=== PATIENT | male | born 1955 | race Caucasian/White ===

== ENCOUNTER 2018-10-12 05:56 | Inpatient (IN) | payer OTHER ==
[~2018-10-12] VITALS: Ht 182.9 cm; Wt 129.7 kg
--- NOTE | 2018-10-12 06:05 | NUR ---
PT [id number] WITH C/O GLF X1 DAY AGO. PT STATES HE "DOESNT KNOW HOW IT HAPPENED". PT IS A/OX4. BREATHING EVEN AND UNLABORED. +COUGH. PLACED ON VP CLINICAL RESEARCH AND PULSE OX. +BOWEL INCONTINENCE. PENDING EVAL FROM ER .
[2018-10-12] MEDS ORDERED: IV NS 0.9% 500 ML BAG IV ONE (06:30)
--- NOTE | 2018-10-12 06:31 | NUR ---
ER AT BEDSIDE FOR EVAL
[2018-10-12 06:32] LABS: BASOPHILS # (AUTO) 0.1 /CMM (0.0-0.2); BASOPHILS % (AUTO) 0.6 % (0.0-2.0); EOSINOPHILS % (AUTO) 0.1 % (0.0-6.0); HEMATOCRIT 35 % (39-51); HEMOGLOBIN 11.6 g/dL (13.5-17.5); LYMPHOCYTES # (AUTO) 0.7 /CMM (0.8-4.8); MEAN CORPUSCULAR HGB CONC 33 g/dl (31.0-36.0); MEAN CORPUSCULAR VOLUME 89 fL (80-96); MONOCYTES # (AUTO) 1.1 /CMM (0.1-1.30); MONOCYTES % (AUTO) 6.4 % (2.0-12.0); NEUTROPHILS # (AUTO) 15.5 /CMM (1.8-8.9); NEUTROPHILS % (AUTO) 88.9 % (43.0-81.0); PLATELET COUNT (AUTO) 307 /CMM (150-450); WHITE BLOOD COUNT (AUTO) 17.4 K/uL (4.3-11.0)
[2018-10-12 06:39] LABS: CALCIUM, SERUM 8.2 mg/dL (8.5-10.1); CREATININE 2.2 mg/dL (0.6-1.3); POTASSIUM 4.7 mmol/L (3.5-5.1)
--- NOTE | 2018-10-12 06:42 | NUR ---
XRAY AT BEDSIDE
[2018-10-12 06:45] LABS: ALBUMIN 1.7 g/dL (3.4-5.0); BILIRUBIN,DIRECT 1.6 mg/dL (0.0-0.2); BILIRUBIN,TOTAL 2.1 mg/dL (0.2-1.0)
--- NOTE | 2018-10-12 07:14 | NUR ---
REPORT GIVEN TO MAHNAZ JARAMILLO FOR CATRACHITA.
[2018-10-12] MEDS ORDERED: ONDANSETRON HCL/PF - ER 4 MG/2 ML VIAL IV ONE (07:30)
[2018-10-12] MEDS ORDERED: ONDANSETRON HCL/PF 4 MG/2 ML VIAL ONE (07:37)
[2018-10-12] MEDS ORDERED: METO-356 PO (07:55)
[2018-10-12] MEDS ORDERED: INSU100I26 SQ (07:55)
[2018-10-12] MEDS ORDERED: INSU100I34 SQ (07:55)
[2018-10-12] MEDS ORDERED: BUME1TAB8 PO (07:55)
[2018-10-12] MEDS ORDERED: BUPR-51 PO (07:55)
[2018-10-12] MEDS ORDERED: VANCOMYCIN 1 GM in IV D5W 250 ML IV ONE (08:00)
[2018-10-12] MEDS ORDERED: CEFTRIAXONE 1GM BAG (ER ONLY) 1 GM/50 ML PIGGYBACK IV ONE (08:00)
[2018-10-12 08:59] LABS: APPEARANCE,URINE Slightly Cloudy (CLEAR); BILIRUBIN,URINE MODERATE (NEGATIVE); BLOOD, URINE Moderate Ery/uL (NEGATIVE); COLOR,URINE Amber (YELLOW); KETONES,URINE Trace (NEGATIVE); LEUKOCYTE ESTERASE ,URINE Negative (NEGATIVE); NITRITE, URINE Negative (NEGATIVE); PROTEIN,URINE >=300 mg/dl (NEGATIVE); UGLUCOSE Negative (NEGATIVE)
[2018-10-12] MEDS: BUPROPION XL 150 MG TAB.ER.24 PO SCH (09:00)
[2018-10-12] MEDS ORDERED: BUMETANIDE (1 MG) 1 MG TABLET PO SCH (09:00)
[2018-10-12 09:39] LABS: BACTERIA,URINE Few /HPF (None Seen); SQUAMOUS EPITHELIAL CELL,UR Few /HPF (None Seen); WBC,URINE 0-2 /HPF (0-3)
[2018-10-12 09:48] LABS: THYROID STIMULATING HORMONE 1.979 uIU/mL (0.358-3.74)
--- NOTE | 2018-10-12 10:41 | NUR ---
report given to kate brady pt will be tranposrted to 3rd floor via acls protocol
[2018-10-12] MEDS ORDERED: FEE PK DOSING 1 MIN EA MC ONE (10:56)
[2018-10-12 11:00] VITALS: BP 125/81
--- NOTE | 2018-10-12 11:00 | NUR ---
MS AWARD MACHINE OPERATOR NOTE PATIENT ARRIVED BY PHU FROM ER. PATIENT IN NO ACUTE DISTRESS. NO SOB NOTED. PATIENT ALERT AND ORIENTEDX3. PATIENT BREATHING IS EVEN AND UNLABORED. PATIENT VITAL SIGNS WNL. PATIENT VERBALIZES CONCERNS. CONCERNS WERE ADDRESSED. PATIENT ON CARDIAC MONITORING, SR 87. SAFETY PRECAUTIONS IN PLACE. BED IS LOCKED AND IN LOWEST POSITION. CALL LIGHT WITHIN REACH. WILL CONTINUE TO MONITOR. MD MADE AWARE OF PATIENT ARRIVAL.
[2018-10-12 11:30] VITALS: BP 125/81
[2018-10-12] MEDS ORDERED: MAGNESIUM HYDROXIDE 30 ML UDC PO PRN (11:30)
[2018-10-12] MEDS ORDERED: ZOLPIDEM TARTRATE 5 MG TABLET PO PRN (11:30)
[2018-10-12] MEDS ORDERED: ONDANSETRON HCL/PF 4 MG/2 ML VIAL IVP PRN (11:30)
[2018-10-12] MEDS ORDERED: MAG HYDROX/AL HYDROX/SIMETH 30 ML UDC PO PRN (11:30)
[2018-10-12] MEDS ORDERED: Z GUARD REMEDY 2 OZ OINT TP PRN (11:30)
[2018-10-12] MEDS ORDERED: HYDROCODONE/APAP 5/325MG 1 EACH TABLET PO PRN (11:30)
[2018-10-12] MEDS ORDERED: ACETAMINOPHEN 325 MG TABLET PO PRN (11:30)
[2018-10-12] MEDS: IV NS 0.9% 1,000 ML IV PRN (11:51)
[2018-10-12] MEDS: METOPROLOL SUCCINATE 25 MG TAB.SR.24H PO SCH (11:53)
[2018-10-12] MEDS: CEFTRIAXONE 1 G in IV D5W 50 ML IV SCH (13:34)
[2018-10-12 16:00] VITALS: BP 110/70
[2018-10-12 17:00] VITALS: BP 129/79
[2018-10-12] MEDS ORDERED: DEXTROSE 50%-WATER 50 ML DISP.SYRIN IV PRN (17:30)
[2018-10-12] MEDS ORDERED: BLOOD SUGAR DIAGNOSTIC 1 EACH STRIP VI SCH (17:30)
[2018-10-12] MEDS: BLOOD SUGAR DIAGNOSTIC 1 EACH STRIP IN SCH ×2 (17:40→21:17)
[2018-10-12] MEDS: INSULIN REGULAR, HUMAN 100 UNIT/ML 3 ML VIAL SQ PRN (17:43)
--- NOTE | 2018-10-12 19:24 | NUR ---
MS RN CLOSING NOTE PATIENT RESTING IN BED COMFORTABLY. PATIENT IN NO ACUTE DISTRESS. NO SOB NOTED. PATIENT KEPT CLEAN, DRY, AND COMFORTABLE. PATIENT BREATHING IS EVEN AND UNLABORED. PATIENT VERBALIZES CONCERNS. CONCERNS ADDRESSED. PATIENT IN NO PAIN AT THIS TIME. PATIENT BED IS LOCKED AND IN LOWEST POSITION. CALL LIGHT WITHIN REACH. ALL NURSING NEEDS MET. ENDORSED CARE TO PM SHIFT FOR CATRACHITA.
--- NOTE | 2018-10-12 19:30 | NUR ---
RN NOTES RECEIVED PT. AWAKE ON BED, A/OX3 WITH CONFUSION, SR WITH BBB ON TELE MONITOR HR-77, DENIES PAIN, NO SOB, CALL LIGHT WITHIN REACH, [id number], CONTINUE TO MONITOR
[2018-10-12 20:00] VITALS: BP 128/89
[2018-10-12] MEDS: *INSULIN REGULAR(HUMULIN R)HUM 100 UNIT/ML VIAL SQ PRN (21:27)
[2018-10-12] MEDS: INSULIN GLARGINE, 100 UNIT/ML CARTRIDGE SQ SCH (22:00)
--- NOTE | 2018-10-12 22:00 | NUR ---
RN NOTES PT. REFUSED HIS LANTUS HE STATED " HIS BLOOD SUGAR IS ONLY 171"
[2018-10-13] VITALS: BP 110/60
--- NOTE | 2018-10-13 02:30 | NUR ---
RN NOTES pt. pulled out his iv access, new iv line inserted on the left forearm # 22
[2018-10-13] MEDS: VANCOMYCIN 1 GM in IV D5W 250 ML IV SCH ×2 (03:06→21:58)
[2018-10-13] MEDS: IV NS 0.9% 1,000 ML IV PRN (03:07)
[2018-10-13 04:00] VITALS: BP 132/60
[2018-10-13 06:23] LABS: BASOPHILS # (AUTO) 0.1 /CMM (0.0-0.2); BASOPHILS % (AUTO) 0.8 % (0.0-2.0); EOSINOPHILS % (AUTO) 1.5 % (0.0-6.0); HEMATOCRIT 36 % (39-51); HEMOGLOBIN 12.1 g/dL (13.5-17.5); LYMPHOCYTES % (AUTO) 5.9 % (20.0-44.0); MEAN CORPUSCULAR HGB CONC 33 g/dl (31.0-36.0); MEAN CORPUSCULAR VOLUME 90 fL (80-96); MONOCYTES % (AUTO) 5.7 % (2.0-12.0); NEUTROPHILS # (AUTO) 14.4 /CMM (1.8-8.9); NEUTROPHILS % (AUTO) 86.1 % (43.0-81.0); PLATELET COUNT (AUTO) 277 /CMM (150-450); RED BLOOD CELL COUNT(AUTO) 4.07 MIL/uL (4.5-6.0); WHITE BLOOD COUNT (AUTO) 16.8 K/uL (4.3-11.0)
[2018-10-13 06:35] LABS: ALBUMIN 1.5 g/dL (3.4-5.0); BILIRUBIN,TOTAL 1.3 mg/dL (0.2-1.0); CALCIUM, SERUM 8.1 mg/dL (8.5-10.1); MAGNESIUM 2.1 mg/dL (1.8-2.4); PHOSPHORUS 4.2 mg/dL (2.5-4.9); POTASSIUM 5.2 mmol/L (3.5-5.1)
--- NOTE | 2018-10-13 06:35 | NUR ---
RN NOTES AWAKE, SITTING IN THE CHAIR, DENIES PAIN, NO SOB,. MORNING CARE RENDERED, CALL LIGHT WITHIN REACH, MALLORYUPX2, PT. NEEDS ATTENDED
[2018-10-13] MEDS: INSULIN REGULAR, HUMAN 100 UNIT/ML 3 ML VIAL SQ PRN ×4 (06:59→21:38)
[2018-10-13] MEDS: BLOOD SUGAR DIAGNOSTIC 1 EACH STRIP IN SCH ×4 (07:00→21:27)
--- NOTE | 2018-10-13 07:45 | NUR ---
MS RN OPENING NOTE PATIENT IN CHAIR RESTING COMFORTABLY. PATIENT STATED HE PREFERS TO SIT IN CHAIR PREPARING FOR BREAKFAST. PATIENT BREATHING IS EVEN AND UNLABORED. PATIENT IN NO ACUTE DISTRESS. NO SOB NOTED. PATIENT VERBALIZES CONCERNS. CONCERNS ADDRESSED. SAFETY PRECAUTIONS IN PLACE. PATIENT BED IS LOCKED AND IN LOWEST POSITION. CALL LIGHT WITHIN REACH. WILL CONTINUE TO MONITOR.
[2018-10-13 08:00] VITALS: BP 109/68
[2018-10-13] MEDS: BUPROPION XL 150 MG TAB.ER.24 PO SCH (09:00)
[2018-10-13] MEDS: METOPROLOL SUCCINATE 25 MG TAB.SR.24H PO SCH (09:00)
[2018-10-13] MEDS: FUROSEMIDE 40 MG/4 ML VIAL IV SCH ×2 (09:12→12:23)
[2018-10-13] MEDS: CEFTRIAXONE 1 G in IV D5W 50 ML IV SCH (12:21)
[2018-10-13 16:00] VITALS: BP 109/63
--- NOTE | 2018-10-13 18:43 | NUR ---
MS RN CLOSING NOTE PATIENT IN CHAIR RESTING COMFORTABLY. PATIENT PREFERS TO SIT IN CHAIR STATED BY PATIENT. PATIENT BREATHING IS EVEN AND UNLABORED. PATIENT IN NO ACUTE DISTRESS. NO SOB NOTED. PATIENT STATES NO PAIN AT THIS TIME. PATIENT KEPT CLEAN AND DRY THROUGHOUT SHIFT. PATIENT VERBALIZED CONCERNS. CONCERNS AND NEEDS ADDRESSED. ALL NURSING NEEDS MET. SAFETY PRECAUTIONS IN PLACE. PATIENT BED IS LOCKED AND IN LOWEST POSITION. CALL LIGHT WITHIN REACH. WILL ENDORSE CARE TO PM SHIFT FOR CATRACHITA.
--- NOTE | 2018-10-13 19:48 | NUR ---
MS/RN OPENING NOTES RECEIVED PATIENT IN BED, AWAKE, ALERT X3, ABLE TO VERBALIZE NEEDS, REQUIRE ASSISTANCE IN TRANSFERED FROM CHAIR TO BED, RESPIRATIONS EVEN AND UNLABORED, DENIED PAIN. REPORTED WANT TO TAKE A SHOWER, OFFERED SPONGE BATH BUT WILL INFORM MD FOR ORDER FOR SAFETY . HEP LOCK LEFT WRIST 22.SKIN ISSUES OBSERVED WITH BACK SACRAL REDNESS AND BLE CELLULITIS. BED LOCKED, CALL LIGHTS WITHIN REACH, WILL MONITOR.
[2018-10-13 20:00] VITALS: BP 107/74
[2018-10-13 20:21] VITALS: BP 107/74
[2018-10-13] MEDS: INSULIN GLARGINE, 100 UNIT/ML CARTRIDGE SQ SCH (21:41)
--- NOTE | 2018-10-13 21:48 | NUR ---
MS/RN NOTES BLOOD SUGAR CHECK AT 200, PATIENT ALERT, ORIENTED PATIENT REQUESTED TO HAVE LANTUS BE GIVEN OF 12 UNITS HE EXPERIENCE DROP IN BLOOD SUGAR LEVEL DURING THE NIGH BUT PATIENT HAD 3 UNIT INSULIN REGULAR PER SLIDING SCALE.
--- NOTE | 2018-10-14 03:25 | NUR ---
MS/RN NOTES PATIENT REPORTED THAT HE USES CPAP AT HIS HOME AND REFUSES OXYGEN NASALCANULA WITH OXYGENATION AT ROOM AIR OF 94%. WILL FOLLOW UP IN AM.
[2018-10-14] MEDS: BLOOD SUGAR DIAGNOSTIC 1 EACH STRIP IN SCH ×4 (06:02→22:47)
[2018-10-14] MEDS: INSULIN REGULAR, HUMAN 100 UNIT/ML 3 ML VIAL SQ PRN ×3 (06:27→17:13)
--- NOTE | 2018-10-14 06:38 | NUR ---
325-1 MS/RN NOTES PATIENT ABLE TO SLEEP DURING THE NIGHT, RESPIRATIONS EVEN AND UNLABORED. DENIES PAIN,MONITORED FOR SAFETY. IV RUNING WITH NO S/S OF INFILTRARION, BED LOCKED, CALL LIGHTS WITIN REACH, WILL MONITOR, PROVIDED FLUIDS AND OFFERED SNACKS. WILL ENDORSE TO AM RN FOR CATRACHITA.
[2018-10-14 07:18] LABS: BASOPHILS # (AUTO) 0.1 /CMM (0.0-0.2); BASOPHILS % (AUTO) 0.6 % (0.0-2.0); EOSINOPHILS % (AUTO) 2.9 % (0.0-6.0); HEMATOCRIT 36 % (39-51); HEMOGLOBIN 11.6 g/dL (13.5-17.5); LYMPHOCYTES # (AUTO) 0.7 /CMM (0.8-4.8); LYMPHOCYTES % (AUTO) 5.1 % (20.0-44.0); MEAN CORPUSCULAR HGB CONC 33 g/dl (31.0-36.0); MEAN CORPUSCULAR VOLUME 90 fL (80-96); MONOCYTES # (AUTO) 0.9 /CMM (0.1-1.30); NEUTROPHILS # (AUTO) 12.5 /CMM (1.8-8.9); NEUTROPHILS % (AUTO) 85.4 % (43.0-81.0); PLATELET COUNT (AUTO) 297 /CMM (150-450); RED BLOOD CELL COUNT(AUTO) 3.97 MIL/uL (4.5-6.0); WHITE BLOOD COUNT (AUTO) 14.6 K/uL (4.3-11.0)
[2018-10-14 07:39] LABS: ALBUMIN 1.5 g/dL (3.4-5.0); BILIRUBIN,TOTAL 1.1 mg/dL (0.2-1.0); CREATININE 1.9 mg/dL (0.6-1.3); PHOSPHORUS 4.3 mg/dL (2.5-4.9); TOTAL PROTEIN, SERUM 7.6 g/dL (6.4-8.2)
--- NOTE | 2018-10-14 07:42 | NUR ---
MS RN OPENING NOTE RECEIVED PATIENT RESTING IN BED COMFORTABLY. PATIENT IN NO ACUTE DISTRESS. NO SOB NOTED. PATIENT ABLE TO VERBALIZE CONCERNS. CONCERNS AND NEEDS ADDRESSED. PATIENT BREATHING IS EVEN AND UNLABORED. SAFETY PRECAUTIONS IN PLACE. PATIENT BED IS LOCKED AND IN LOWEST POSITION. CALL LIGHT WITHIN REACH. WILL CONTINUE TO MONITOR.
[2018-10-14 08:00] VITALS: BP 131/86
[2018-10-14] MEDS: BUPROPION XL 150 MG TAB.ER.24 PO SCH (08:49)
[2018-10-14] MEDS: METOPROLOL SUCCINATE 25 MG TAB.SR.24H PO SCH (08:49)
[2018-10-14] MEDS: CEFTRIAXONE 1 G in IV D5W 50 ML IV SCH (11:18)
[2018-10-14 13:06] LABS: *SPE A/G RATIO 0.4 (0.7-1.7); *SPE ALPHA-1-GLOBULIN 0.5 g/dL (0.0-0.4); *SPE GLOBULIN, TOTAL 5.4 g/dL (2.2-3.9); *SPE M-SPIKE Not Observed g/dL (Not Observed)
--- NOTE | 2018-10-14 15:20 | NUR ---
MS RN NOTE RECEIVED CALL FROM MICROBIOLOGY REPORTING POSITIVE MRSA OF THE NARES. PATIENT MAINTAINED CONTACT ISOLATION PRECAUTIONS. MADE AWARE. AWAITING CENTRAL SUPPLY FOR ISOLATION CART. WILL CONTINUE TO MONITOR.
[2018-10-14] MEDS: VANCOMYCIN 1 GM in IV D5W 250 ML IV SCH (15:59)
[2018-10-14 16:00] VITALS: BP 111/71
[2018-10-14] MEDS: MUPIROCIN OINT 2% 22 GM TUBE TP SCH (17:10)
--- NOTE | 2018-10-14 19:39 | NUR ---
MS RN CLOSING NOTE PATIENT IN BED RESTING COMFORTABLY. PATIENT IN NO PAIN AT THIS TIME. PATIENT IN NO ACUTE DISTRESS. NO SOB NOTED. PATIENT BREATHING IS EVEN AND UNLABORED. PATIENT KEPT CLEAN AND DRY THROUGHOUT SHIFT. SOLES OF FEET COVERED WITH MEPILEX. ALL NURSING NEEDS MET. SAFETY PRECAUTIONS IN PLACE. PATIENT BED IS LOCKED AND IN LOWEST POSITION. CALL LIGHT WITHIN REACH. ENDORSED CARE TO PM SHIFT FOR CATRACHITA.
--- NOTE | 2018-10-14 19:40 | NUR ---
MS RN OPENING NOTES Received patient, sitting on bed. On RA, no SOB/respiratory distress noted. No discomfort noted at this time. Kept on bed clean, dry and comfortable. Call light within easy reach. Will continue to monitor accordingly.
[2018-10-14 20:00] VITALS: BP 99/65
[2018-10-14] MEDS: INSULIN GLARGINE, 100 UNIT/ML CARTRIDGE SQ SCH (22:46)
[2018-10-14] MEDS: *INSULIN REGULAR(HUMULIN R)HUM 100 UNIT/ML VIAL SQ PRN (22:48)
[2018-10-15] MEDS: MUPIROCIN OINT 2% 22 GM TUBE TP SCH ×2 (04:07→16:35)
--- NOTE | 2018-10-15 06:41 | NUR ---
MS RN CLOSING NOTES Patient asleep at this time. On RA, no SOB/respiratory distress noted. With sitter at bedside. All nursing needs attended. All due meds given as ordered. No new unsualities noted. Afebrile the whole shift. Endorsed to the next shift.
[2018-10-15] MEDS: INSULIN REGULAR, HUMAN 100 UNIT/ML 3 ML VIAL SQ PRN ×3 (06:44→17:04)
[2018-10-15] MEDS: BLOOD SUGAR DIAGNOSTIC 1 EACH STRIP IN SCH ×3 (06:45→17:37)
--- NOTE | 2018-10-15 07:30 | NUR ---
RN MS NOTES PT IN BED, AWAKE, ALERT AND ORIENTED, DENIES PAIN, RESPIRATIONS NORMAL, CALL LIGHT WITHIN REACH, PT REFUSING TO TAKE WELLBUTRIN AT THIS TIME, NEEDS ATTENDED.
[2018-10-15 08:00] VITALS: BP 107/50
[2018-10-15] MEDS: BUPROPION XL 150 MG TAB.ER.24 PO SCH (08:30)
[2018-10-15] MEDS: METOPROLOL SUCCINATE 25 MG TAB.SR.24H PO SCH (08:30)
[2018-10-15 08:56] LABS: BASOPHILS # (AUTO) 0.1 /CMM (0.0-0.2); BASOPHILS % (AUTO) 1.2 % (0.0-2.0); EOSINOPHILS % (AUTO) 3.9 % (0.0-6.0); HEMATOCRIT 37 % (39-51); HEMOGLOBIN 12.3 g/dL (13.5-17.5); LYMPHOCYTES % (AUTO) 7.7 % (20.0-44.0); MEAN CORPUSCULAR HGB CONC 33 g/dl (31.0-36.0); MEAN CORPUSCULAR VOLUME 89 fL (80-96); MONOCYTES # (AUTO) 0.9 /CMM (0.1-1.30); MONOCYTES % (AUTO) 7.3 % (2.0-12.0); NEUTROPHILS % (AUTO) 79.9 % (43.0-81.0); PLATELET COUNT (AUTO) 296 /CMM (150-450); RED BLOOD CELL COUNT(AUTO) 4.17 MIL/uL (4.5-6.0); WHITE BLOOD COUNT (AUTO) 12.5 K/uL (4.3-11.0)
[2018-10-15] MEDS: VANCOMYCIN 1 GM in IV D5W 250 ML IV SCH (09:00)
[2018-10-15 09:42] LABS: CALCIUM, SERUM 8.4 mg/dL (8.5-10.1); POTASSIUM 4.3 mmol/L (3.5-5.1)
[2018-10-15 09:43] LABS: CREATININE 1.8 mg/dL (0.6-1.3); MAGNESIUM 2.2 mg/dL (1.8-2.4); PHOSPHORUS 4.5 mg/dL (2.5-4.9)
[2018-10-15] MEDS ORDERED: CLIN300C11 IV (10:47)
[2018-10-15] MEDS ORDERED: CLINDAMYCIN IV RTU IN D5W 900 MG/50 ML PIGGYBACK IV SCH (11:00)
--- NOTE | 2018-10-15 11:54 | NUR ---
RN MS NOTES PT AWAKE, ALERT AND ORIENTED, DENIES PAIN, NOT IN DISTRESS, SEEN BY DR. SIERRA, DISCHARGE ORDER GIVEN, PT AND BROTHER HEMALATHA INFORMED, TEXTILE BROKER MAHNAZ SPOKE WITH PT AND FAMILY, VERBALIZED UNDERSTANDING, AWAITING PLACEMENT ARRANGEMENTS.
[2018-10-15] MEDS: CLINDAMYCIN 900 MG in IV D5W 50 ML IV SCH ×2 (12:54→20:32)
--- NOTE | 2018-10-15 15:47 | NUR ---
RN MS NOTES CLARIFIED DISCHARGE ATB ORDERS FROM DR. SIERRA, PER MD CONTINUE CLYNDAMYCIN IV X 10 DAYS ORDERED THEN TRANSITION TO PO ATB PER SNF MD.
[2018-10-15 16:00] VITALS: BP 102/70
--- NOTE | 2018-10-15 18:51 | NUR ---
RN MS NOTES PT IN BED, AWAKE, ALERT AND ORIENTED, MIDLINE PLACED BY JITENDRA JARAMILLO AT RIGHT UPPER ARM, PT TOLERATED PROCEDURE WELL, DISCHARGE AND MEDICATION INSTRUCTIONS PROVIDED TO PT, VERBALIZED UNDERSTANDING, SKIN CHECK AND PHOTOS DONE, PLAN FOR DISCHARGE TONIGHT, MACHINE FILLER SERVICER TIME OF 9PM PER INSTALLER HELPER GORDON JOYA INFORMED.
--- NOTE | 2018-10-15 19:00 | NUR ---
MS RN OPENING NOTES Received patient A/O x3, awake on sidelying position on bed. On RA, no SOB/respiratory distress noted. Patient denies any discomfort at this time. Re-educate patient on discharge instructions, patient verbalized understanding. Gave report to receiving SNF Chris Alvarado, spoke with RN Usha, reiterate patient's ATB to be changed to PO after 10 days per SNF MD. Awaiting for transportation at this time, ETA 2100. Kept patient on bed clean, dry and comfortable. Call light within easy reach. On fall precautions. Will continue to monitor accordingly.
[2018-10-15 20:04] VITALS: BP 103/70
--- NOTE | 2018-10-15 20:55 | NUR ---
MS MANUFACTURING SALES REPRESENTATIVE NOTES Patient picked up by 2 data processing operator via kalin. Patient in RA, no SOB/respiratory distress, no complaints of pain. With BRADEN Midline G#[id number], SL. Discharge papers endorsed to EMT. Brother Sanjay and [facility] notified of patient's departure. Patient left at this time.
== END 2018-10-15 20:55 | DRG 351 ==
LOC: ER 06:04 → TELE 10:39 → MED 10-13 08:39
PROVIDERS: ADMIT Internal Medicine; ATTEND Family Medicine
PROC: 05HB33Z Insertion of Infusion Device into Right Basilic Vein, Percutaneous Approach (ICD-10-PCS; principal; 2018-10-15)
DX: M62.82 Rhabdomyolysis (principal); I21.4 Non-ST elevation (NSTEMI) myocardial infarction; N17.0 Acute kidney failure with tubular necrosis; I13.0 Hypertensive heart and chronic kidney disease with heart failure and stage 1 through stage 4 chronic kidney disease, or unspecified chronic kidney disease; I95.9 Hypotension, unspecified; E11.22 Type 2 diabetes mellitus with diabetic chronic kidney disease; E11.51 Type 2 diabetes mellitus with diabetic peripheral angiopathy without gangrene; E87.1 Hypo-osmolality and hyponatremia; I50.32 Chronic diastolic (congestive) heart failure; Z79.4 Long term (current) use of insulin; L03.115 Cellulitis of right lower limb; L03.116 Cellulitis of left lower limb; N18.9 Chronic kidney disease, unspecified; Z79.899 Other long term (current) drug therapy; D63.8 Anemia in other chronic diseases classified elsewhere; I25.10 Atherosclerotic heart disease of native coronary artery without angina pectoris; M85.9 Disorder of bone density and structure, unspecified; J44.9 Chronic obstructive pulmonary disease, unspecified; K74.60 Unspecified cirrhosis of liver; R18.8 Other ascites; E87.5 Hyperkalemia; E78.5 Hyperlipidemia, unspecified; Z91.81 History of falling; I87.8 Other specified disorders of veins
CPT/HCPCS: 36415; 71045-TC; 72170-TC; 76700-TC; 80048-TC; 80053-TC; 80061-TC; 80074; 80076-TC; 80202-TC; 81000-TC; 82550-TC; 82570-TC; 82728-TC; 82962-TC; 83540-TC; 83605-TC; 83735-TC; 84100-TC; 84155; 84155-TC; 84165; 84439-TC; 84443-TC; 84484-TC; 85025-TC; 85652-TC; 85730-TC; 87040-TC; 87081-TC; 87086-TC; 87340; 93307-TC; 97110-TC; 97116-TC; 97530-TC; A6403; G0378; J0696; J1815; J1940; J2405; J3370; J3490; J7030; J7040; J7060

== ENCOUNTER 2018-12-23 18:12 | Inpatient (IN) | payer OTHER ==
[~2018-12-23] VITALS: Ht 182.9 cm; Wt 106.6 kg
[~2018-12-23 18:12] MED LIST: BUME1TAB8 PO; BUPR-51 PO; CLIN300C11 IV; INSU100I26 SQ; INSU100I34 SQ; METO25TA4 PO
--- NOTE | 2018-12-23 18:16 | NUR ---
"BIBPA AND BROTHER FROM SNF, C/O WEAKNESS x 3 WEEKS" PT ALERT, PT ON MONITOR, VSS, NAD NOTED, PENDING MD RAVI
[2018-12-23] MEDS ORDERED: DOCU-141 PO (18:42)
[2018-12-23] MEDS ORDERED: BISA10SU11 RC (18:42)
[2018-12-23] MEDS ORDERED: NA P133E RC (18:42)
[2018-12-23] MEDS ORDERED: MAGN400O6 PO (18:42)
[2018-12-23] MEDS ORDERED: MULT-439 PO (18:43)
[2018-12-23] MEDS ORDERED: HYDR-3974 PO (18:43)
[2018-12-23] MEDS ORDERED: TYL2T PO (18:43)
[2018-12-23] MEDS ORDERED: MELA3TAB63 PO (18:43)
[2018-12-23] MEDS ORDERED: METO25TA6 PO (18:43)
[2018-12-23] MEDS ORDERED: ASCO500T9 PO (18:44)
[2018-12-23] MEDS ORDERED: ACET-868 PO (18:44)
[2018-12-23 19:04] LABS: BASOPHILS # (AUTO) 0.1 /CMM (0.0-0.2); BASOPHILS % (AUTO) 0.7 % (0.0-2.0); EOSINOPHILS % (AUTO) 1.6 % (0.0-6.0); HEMATOCRIT 39 % (39-51); HEMOGLOBIN 12.8 g/dL (13.5-17.5); LYMPHOCYTES # (AUTO) 0.7 /CMM (0.8-4.8); LYMPHOCYTES % (AUTO) 4.9 % (20.0-44.0); MEAN CORPUSCULAR HGB CONC 33 g/dl (31.0-36.0); MEAN CORPUSCULAR VOLUME 90 fL (80-96); MONOCYTES # (AUTO) 0.7 /CMM (0.1-1.30); MONOCYTES % (AUTO) 5.3 % (2.0-12.0); NEUTROPHILS # (AUTO) 12.1 /CMM (1.8-8.9); NEUTROPHILS % (AUTO) 87.5 % (43.0-81.0); PLATELET COUNT (AUTO) 152 /CMM (150-450); RED BLOOD CELL COUNT(AUTO) 4.35 MIL/uL (4.5-6.0); WHITE BLOOD COUNT (AUTO) 13.8 K/uL (4.3-11.0)
[2018-12-23 19:30] LABS: MAGNESIUM 2.1 mg/dL (1.8-2.4)
[2018-12-23 19:33] LABS: CALCIUM, SERUM 8.6 mg/dL (8.5-10.1); POTASSIUM 4.1 mmol/L (3.5-5.1)
[2018-12-23 19:46] LABS: ALBUMIN 1.7 g/dL (3.4-5.0); BILIRUBIN,DIRECT 0.9 mg/dL (0.0-0.2); BILIRUBIN,TOTAL 1.2 mg/dL (0.2-1.0); TOTAL PROTEIN, SERUM 7.8 g/dL (6.4-8.2)
[2018-12-23] MEDS ORDERED: FUROSEMIDE 40 MG/4 ML VIAL IV ONE (20:30)
[2018-12-23] MEDS ORDERED: FUROSEMIDE 40 MG/4 ML VIAL ONE (20:35)
[2018-12-23] MEDS ORDERED: MAG HYDROX/AL HYDROX/SIMETH 30 ML UDC PO PRN (22:30)
[2018-12-23] MEDS ORDERED: BISACODYL SUPP (10 MG) 10 MG/SUPP.RECT SUPP.RECT RC PRN (22:30)
[2018-12-23] MEDS ORDERED: ONDANSETRON HCL/PF 4 MG/2 ML VIAL IVP PRN (22:30)
[2018-12-23] MEDS ORDERED: MAGNESIUM HYDROXIDE 30 ML UDC PO PRN (22:30)
[2018-12-23] MEDS ORDERED: Z GUARD REMEDY 2 OZ OINT TP PRN (22:30)
[2018-12-23] MEDS ORDERED: ACETAMINOPHEN 325 MG TABLET PO PRN (22:30)
[2018-12-23] MEDS ORDERED: Medication Not On Formulary EA (Melatonin 3 MG) PO PRN (22:30)
--- NOTE | 2018-12-23 22:32 | NUR ---
REPORT GIVEN TO REJI JARAMILLO FOR CATRACHITA PT WILL BE TRANSPORTED TO 1ST FLOOR
--- NOTE | 2018-12-23 22:40 | NUR ---
BRIM CURLERBILINGUAL CASE MANAGER NOTE: PT ADMITTED FROM ER VIA [facility] [place] WITH ADMITTING DIAGNOSIS OF CHF. PT IS ALERT AND ORIENTED TO HIMSELF ONLY. NO APPARENT DISTRESS NOTED. DENIES PAIN AND DISCOMFORT AT THIS TIME. ON 2LPM NASAL CANNULA, NO SOB NOTED AT THIS TIME. SINUS RHYTHM ON TELE MONITOR HR 80 BPM. IV ON LEFT HAND #22 INTACT AND PATENT, FLUSHING WELL. NO SIGNS/SYMPTOMS OF INFILTRATION NOTED. PERTINENT ASSESSMENTS DONE. MULTIPLE SKIN ISSUES NOTED. PICTURES TAKEN AND PLACED ON CHART. KEPT CLEAN, DRY AND COMFORTABLE. CALL LIGHT PLACED WITHIN REACH. SAFETY AND FALL PRECAUTIONS OBSERVED AND MAINTAINED. WILL CONTINUE TO MONITOR PT.
[2018-12-23 23:42] VITALS: BP 132/81
[2018-12-23] MEDS ORDERED: CEFTRIAXONE 1 G VIAL ONE (23:49)
[2018-12-23] MEDS ORDERED: VANCOMYCIN 1 GM VIAL ONE (23:50)
[2018-12-24] VITALS: BP 132/81
[2018-12-24] MEDS ORDERED: CEFTRIAXONE 1 G in IV D5W 50 ML IV SCH ×2
[2018-12-24] MEDS ORDERED: VANCOMYCIN 1 GM in IV D5W 250ml IV SCH (01:00)
[2018-12-24 01:12] LABS: APPEARANCE,URINE Clear (CLEAR); BILIRUBIN,URINE Negative (NEGATIVE); BLOOD, URINE Negative Ery/uL (NEGATIVE); COLOR,URINE Yellow (YELLOW); KETONES,URINE Negative (NEGATIVE); LEUKOCYTE ESTERASE ,URINE Trace (NEGATIVE); NITRITE, URINE Negative (NEGATIVE); PROTEIN,URINE 30 mg/dl (NEGATIVE); UGLUCOSE Negative (NEGATIVE); UROBILINOGEN,URINE 0.2 EU/dL (0.2)
[2018-12-24 01:45] LABS: BACTERIA,URINE Few /HPF (None Seen); RBC,URINE 0-2 /HPF (0-2); SQUAMOUS EPITHELIAL CELL,UR Rare /HPF (None Seen); YEAST,URINE Few /HPF (None Seen)
[2018-12-24 04:00] VITALS: BP 130/81
--- NOTE | 2018-12-24 06:37 | NUR ---
TRIAGE CLINICIAN NOTE: NO CHANGES NOTED THROUGHOUT THE SHIFT. NO APPARENT DISTRESS NOTED. DENIES PAIN AND DISCOMFORT AT THIS TIME. ON 2LPM NASAL CANNULA, NO SOB NOTED. SATURATING WELL. SINUS RHYTHM ON TELE MONITOR HR 81 BPM. IV ON RIGHT HAND #22 INTACT AND PATENT, FLUSHING WELL. KEPT CLEAN, DRY AND COMFORTABLE. SAFETY AND FALL PRECAUTIONS OBSERVED AND MAINTAINED. ALL NEEDS ATTENDED. WILL ENDORSE TO DAY SHIFT RN FOR CONTINUITY OF CARE.
[2018-12-24 07:25] LABS: ALBUMIN 1.8 g/dL (3.4-5.0); BILIRUBIN,DIRECT 0.8 mg/dL (0.0-0.2); BILIRUBIN,TOTAL 1.3 mg/dL (0.2-1.0); CALCIUM, SERUM 8.4 mg/dL (8.5-10.1); CREATININE 1.8 mg/dL (0.6-1.3); MAGNESIUM 1.9 mg/dL (1.8-2.4); PHOSPHORUS 3.5 mg/dL (2.5-4.9); POTASSIUM 3.9 mmol/L (3.5-5.1)
--- NOTE | 2018-12-24 07:30 | NUR ---
MINE FOREMAN OPENING NOTE RECEIVED REPORT AT BEDSIDE. PT A/OX2. ON NS 2L SATURATING WELL. ON TELE MONITOR SR HR 80'S. NO SIGN OF ACUTE RESPIRATORY/CARDIAC DISTRESS OR SOB AT THIS TIME. SAFETY MEASURES IN PLACE, BED LOCKED AND LOW, SIDE RAILS UPX3, CALL LIGHT WITHIN REACH. WILL CONT' TO MONITOR CLOSELY.
[2018-12-24 07:32] LABS: BASOPHILS % (AUTO) 0.4 % (0.0-2.0); EOSINOPHILS % (AUTO) 1.9 % (0.0-6.0); HEMATOCRIT 39 % (39-51); HEMOGLOBIN 12.9 g/dL (13.5-17.5); LYMPHOCYTES # (AUTO) 0.8 /CMM (0.8-4.8); LYMPHOCYTES % (AUTO) 6.1 % (20.0-44.0); MEAN CORPUSCULAR HGB CONC 33 g/dl (31.0-36.0); MEAN CORPUSCULAR VOLUME 89 fL (80-96); MONOCYTES # (AUTO) 0.6 /CMM (0.1-1.30); MONOCYTES % (AUTO) 5.1 % (2.0-12.0); NEUTROPHILS # (AUTO) 10.8 /CMM (1.8-8.9); NEUTROPHILS % (AUTO) 86.5 % (43.0-81.0); PLATELET COUNT (AUTO) 168 /CMM (150-450); WHITE BLOOD COUNT (AUTO) 12.5 K/uL (4.3-11.0)
[2018-12-24 08:00] VITALS: BP 123/72
[2018-12-24 08:05] LABS: THYROID STIMULATING HORMONE 4.844 uIU/mL (0.358-3.74)
--- NOTE | 2018-12-24 08:20 | NUR ---
WOUND CARE CONSULT: PT PRESENTS WITH RT HEEL WOUND WITH FOUL PURULENT DRAINAGE, MULTIPLE SCRATCH SAZN, DRY ESCHARS TO LOWER EXTREMITIES, SACRAL STAGE 3 ULCER, REDNESS TO ABDOMINAL/GROIN FOLDS AND GENERALIZED PITTING EDEMA, PRESENT ON ADMISSION. PT IS INCONTINENT. PT ON NORI ISOFLEX LOW AIRLOSS BED. RECOMMEND URGENT DPM CONSULT. DR MARTIN NOTIFIED OF URGENT NEED FOR DPM CONSULT AND FOR REQUEST FOR SURGICAL CONSULT FOR SACRAL ULCER. RECOMMENDATIONS MADE FOR SKIN PROTECTION. DISCUSSED WITH NURSING STAFF. WILL SEE PRN. GARSIA IN AGREEMENT WITH PLAN OF CARE. Addendum: 12/24/18 at 0826 by JULISA CORONA WNDNU Amended: Links added.
[2018-12-24] MEDS ORDERED: Medication Not On Formulary EA (Multivitamins W-Minerals (One Daily Complete) 1 EACH) PO SCH (09:00)
[2018-12-24] MEDS: ASCORBIC ACID 500 MG TABLET PO SCH (09:24)
[2018-12-24] MEDS: BUPROPION XL 150 MG TAB.ER.24 PO SCH (09:24)
[2018-12-24] MEDS: FUROSEMIDE 40 MG/4 ML VIAL IV SCH ×3 (09:24→17:59)
[2018-12-24] MEDS: MULTIVIT W/MINERALS 1 TAB TABLET PO SCH (09:24)
--- NOTE | 2018-12-24 11:06 | NUR ---
WAREHOUSE REPRESENTATIVE NOTE BROTHER AT BEDSIDE.
[2018-12-24] MEDS ORDERED: FEE PK DOSING 1 MIN EA MC ONE (11:43)
[2018-12-24 12:00] VITALS: BP 117/76
[2018-12-24] MEDS: METOLAZONE 2.5 MG TABLET PO SCH (12:07)
[2018-12-24] MEDS: FUROSEMIDE 100 MG/10 ML VIAL IV SCH ×3 (12:07→19:45)
--- NOTE | 2018-12-24 12:07 | NUR ---
AFTER SCHOOL TEACHER NOTE WOUND NURSE AT BEDSIDE TO DO SERIAL SACRAL DEBRIDEMENT BUT UNABLE TO DO IT BECAUSE PT WAS HAVING SOB AND DIFFICULTY BREATHING ONCE THE WOUND NURSE PUT HIM ON SUPINE POSITION.
[2018-12-24 13:24] LABS: APPEARANCE,URINE Clear (CLEAR); BILIRUBIN,URINE Negative (NEGATIVE); BLOOD, URINE Negative Ery/uL (NEGATIVE); COLOR,URINE Yellow (YELLOW); KETONES,URINE Negative (NEGATIVE); LEUKOCYTE ESTERASE ,URINE Small (NEGATIVE); NITRITE, URINE Negative (NEGATIVE); PROTEIN,URINE Negative (NEGATIVE); UGLUCOSE Negative (NEGATIVE); UROBILINOGEN,URINE 0.2 EU/dL (0.2)
[2018-12-24 13:46] LABS: RBC,URINE 0-2 /HPF (0-2)
[2018-12-24 13:48] LABS: BACTERIA,URINE None seen /HPF (None Seen); SQUAMOUS EPITHELIAL CELL,UR Few /HPF (None Seen)
[2018-12-24] MEDS: HYDROCODONE/APAP 5/325MG 1 EACH TABLET PO PRN (13:51)
--- NOTE | 2018-12-24 14:36 | NUR ---
MEDICAL VIDEOGRAPHER NOTE DR. SULLIVAN PUT AN ORDER FOR STRICT I/O'S BUT PATIENT REFUSED LLANES CATHETER. BENEFITS AND RISK FACTOR EXPLAINED TO THE PATIENT AND HIS BROTHER (AT BEDSIDE) BUT PT STILL REFUSING. URINALYSIS AT BEDSIDE AND PT INSTRUCTED TO CALL THE NURSE WHEN HE NEEDS TO PEE. CHARGE NURSE AND MD MADE AWARE.
--- NOTE | 2018-12-24 15:23 | NUR ---
VENTILATED RIB FITTER NOTE PT USED URINAL, URINE OUTPUT 350 ML.
[2018-12-24 16:00] VITALS: BP 112/70
[2018-12-24 16:03] LABS: EOSINOPHIL,URINE None Seen
[2018-12-24 16:19] LABS: CREATININE, URINE 42.7 MG/DL (30.0-125.0)
[2018-12-24] MEDS: HYDROGEL DRESSING 90 GM TUBE TP SCH (16:33)
[2018-12-24] MEDS: SILVER SULFADIAZINE CREAM 25 GM TUBE TP SCH (16:33)
--- NOTE | 2018-12-24 17:29 | NUR ---
CRAYON SAWYER NOTE PT HAD ARTERIAL DOPPLER AT BEDSIDE
[2018-12-24] MEDS: CLOTRIMAZOLE 1% 15 GM TUBE TP SCH (17:59)
--- NOTE | 2018-12-24 19:03 | NUR ---
CHIEF EXECUTIVE OR MANAGING DIRECTOR CLOSING NOTE: NO CHANGES NOTED THROUGHOUT THE SHIFT. NO APPARENT DISTRESS NOTED. ON 2L NASAL CANNULA, NO SOB NOTED. SATURATING WELL. SINUS RHYTHM ON TELE MONITOR HR 88. IV ON RIGHT HAND #22 INTACT AND PATENT, FLUSHING WELL. KEPT CLEAN, DRY AND COMFORTABLE. SAFETY AND FALL PRECAUTIONS OBSERVED AND MAINTAINED. BED LOCKED AND LOW, SIDE RAILS UPX3, CALL LIGHT WITHIN REACH. ALL NEEDS ATTENDED. WILL ENDORSE TO PM SHIFT RN FOR CONTINUITY OF CARE.
[2018-12-24 20:00] VITALS: BP 122/77
[2018-12-24] MEDS: DOCUSATE SODIUM 100 MG CAPSULE PO SCH (21:10)
[2018-12-24] MEDS: CEFTRIAXONE 2 G in IV D5W 100 ML IV SCH (21:10)
[2018-12-24] MEDS: VANCOMYCIN 1 GM in IV D5W 250 ML IV SCH (22:56)
[2018-12-25] VITALS (7 sets, daily range): BP systolic 110–132; BP diastolic 68–80
--- NOTE | 2018-12-25 01:21 | NUR ---
OENOLOGIST NOTE: RECEIVED PT ON BED, ALERT AND ORIENTED X1. NO APPARENT DISTRESS NOTED. DENIES PAIN AND DISCOMFORT AT THIS TIME. ON 2LPM NASAL CANNULA, NO SOB NOTED AT THIS TIME. SINUS RHYTHM ON TELE MONITOR HR 83 BPM. IV ON RIGHT HAND #22 INTACT AND PATENT, FLUSHING WELL. NO SIGNS/SYMPTOMS OF INFILTRATION NOTED. KEPT CLEAN, DRY AND COMFORTABLE. CALL LIGHT PLACED WITHIN REACH. SAFETY AND FALL PRECAUTIONS OBSERVED AND MAINTAINED. WILL CONTINUE TO MONITOR PT. Addendum: 12/25/18 at 0123 by LINDSAY ONEIL RN WRONG TIME. OPENING NOTES AT 1930
--- NOTE | 2018-12-25 06:43 | NUR ---
PULPWOOD DEALER NOTE: NO CHANGES NOTED THROUGHOUT THE SHIFT. NO APPARENT DISTRESS NOTED. DENIES PAIN AND DISCOMFORT AT THIS TIME. ON 2LPM NASAL CANNULA, NO SOB NOTED. SATURATING WELL. SINUS RHYTHM ON TELE MONITOR HR 78 BPM. LEFT UPPER ARM MIDLINE, FLUSHING WELL. KEPT CLEAN, DRY AND COMFORTABLE. SAFETY AND FALL PRECAUTIONS OBSERVED AND MAINTAINED. ALL NEEDS ATTENDED. WILL ENDORSE TO DAY SHIFT RN FOR CONTINUITY OF CARE.
[2018-12-25 07:08] LABS: BASOPHILS # (AUTO) 0.1 /CMM (0.0-0.2); EOSINOPHILS % (AUTO) 2.4 % (0.0-6.0); HEMATOCRIT 36 % (39-51); HEMOGLOBIN 12.2 g/dL (13.5-17.5); LYMPHOCYTES # (AUTO) 0.7 /CMM (0.8-4.8); LYMPHOCYTES % (AUTO) 5.5 % (20.0-44.0); MEAN CORPUSCULAR HGB CONC 34 g/dl (31.0-36.0); MEAN CORPUSCULAR VOLUME 88 fL (80-96); MONOCYTES # (AUTO) 0.8 /CMM (0.1-1.30); NEUTROPHILS # (AUTO) 10.8 /CMM (1.8-8.9); NEUTROPHILS % (AUTO) 85.1 % (43.0-81.0); PLATELET COUNT (AUTO) 340 /CMM (150-450); RED BLOOD CELL COUNT(AUTO) 4.06 MIL/uL (4.5-6.0); WHITE BLOOD COUNT (AUTO) 12.6 K/uL (4.3-11.0)
--- NOTE | 2018-12-25 07:25 | NUR ---
RN OPENING NOTES RECEIVED PATIENT AWAKE AND RESTING IN BED COMFORTABLY, SHOWS NO S/SX OF PAIN OR SOB. HE IS AOX1-2, VERBAL, AND BEDBOUND. LUNG SOUNDS ARE CLEAR ON UPPER [place] BILATERALLY. HE IS ON 2L OF O2 VIA NC, TOLERATING WELL. HE HAS SLIGHT EDEMA ON BOTH UPPER AND LOWER EXTREMITIES. DELMAR MIDLINE IS PATENT AND INTACT. PT IS ON STRICT I&O MONITORING. HE IS ON CONSISTENT CARB DIET. SAFETY MEASURES HAVE BEEN IMPLEMENTED, CALL LIGHT IS WITHIN REACH, BED IS IN LOWEST AND LOCKED POSITION, SIDE RAILS UP X2, WILL CONTINUE TO MONITOR FOR ANY CHANGES.
[2018-12-25 08:27] LABS: ALANINE AMINOTRANSFERASE < 6 U/L (12-78); ALBUMIN 1.8 g/dL (3.4-5.0); ALKALINE PHOSPHATASE 248 U/L (46-116); ASPARTATE AMINOTRANSFERASE 18 U/L (15-37); CALCIUM, SERUM 8.4 mg/dL (8.5-10.1); CARBON DIOXIDE 24 mmol/L (21-32); CHLORIDE 107 mmol/L (98-107); CREATININE 1.9 mg/dL (0.6-1.3); GLUCOSE 126 mg/dL (74-106); MAGNESIUM 1.9 mg/dL (1.8-2.4); PHOSPHORUS 4.3 mg/dL (2.5-4.9); POTASSIUM 3.9 mmol/L (3.5-5.1); SODIUM SERUM 140 mmol/L (136-145); TOTAL PROTEIN, SERUM 7.9 g/dL (6.4-8.2); UREA NITROGEN, BLOOD 56 mg/dL (7-18)
[2018-12-25 08:30] LABS: CREATINE KINASE, TOTAL 19 U/L (39-308)
[2018-12-25] MEDS: METOLAZONE 2.5 MG TABLET PO SCH (09:00)
[2018-12-25] MEDS: BUPROPION XL 150 MG TAB.ER.24 PO SCH (09:00)
[2018-12-25] MEDS: ASCORBIC ACID 500 MG TABLET PO SCH (09:04)
[2018-12-25] MEDS: LACTOBACILLUS RHAMNOSUS GG 1 EACH CAP.SPRINK PO SCH ×2 (09:04→17:59)
[2018-12-25] MEDS: MULTIVIT W/MINERALS 1 TAB TABLET PO SCH (09:05)
[2018-12-25] MEDS: FUROSEMIDE 40 MG/4 ML VIAL IV SCH (09:06)
[2018-12-25] MEDS: SILVER SULFADIAZINE CREAM 25 GM TUBE TP SCH (09:07)
[2018-12-25] MEDS: CLOTRIMAZOLE 1% 15 GM TUBE TP SCH ×2 (09:07→18:00)
[2018-12-25] MEDS: HYDROGEL DRESSING 90 GM TUBE TP SCH (09:07)
[2018-12-25] MEDS ORDERED: BUMETANIDE INJ 16 MG in IV NS 0.9% 16 ML IV ONE (10:30)
--- NOTE | 2018-12-25 19:44 | NUR ---
MS RN NOTE RECEIVED PATIENT A/O X 2 IN BED WITH NO SIGNS OF DISTRESS AT THE MOMENT. PATIENT IS NASAL CANNULA ON 2L O2 WITH NO SIGNS OF SOB. HAS DELMAR MIDLINE FLUSHING AND PATENT. PATIENT IS ON BED REST WITH SIDE RAILS UP X 2 AND BED LOCKED IN A LOW POSITION. PATIENT HAS MULTIPLE WOUNDS WILL APPLY WOUND CARE ORDERED. ALL SAFETY PRECAUTIONS APPLIED, ISOLATION PRECAUTIONS, CALL LIGHT WITHIN REACH. WILL CONTINUE TO MONITOR PATIENT.
--- NOTE | 2018-12-25 20:02 | NUR ---
RN CLOSING NOTES PATIENT IS RESTING IN BED COMFORTABLY AT THIS TIME. HE IS ON 2L OF OXYGEN, TOLERATING WELL, NO S/SX OF RESP DISTRESS OR SOB. DENIES ANY PAIN ZAPATA DISCOMFORT AT THIS TIME. PT NEEDS HAVE BEEN MET, NO ACUTE CHANGES OCCURRED THROUGHOUT THE NIGHT, VITAL SIGNS ARE STABLE. SAFETY MEASURES HAVE BEEN IMPLEMENTED, CALL LIGHT IS WITHIN REACH, BED IS IN LOWEST AND LOCKED POSITION, SIDE RAILS UP X2, PT HAS BEEN ENDORSED TO NIGHTSHIFT RN FOR CONTINUITY OF CARE.
[2018-12-25] MEDS: DOCUSATE SODIUM 100 MG CAPSULE PO SCH (21:51)
[2018-12-25] MEDS: CEFTRIAXONE 2 G in IV D5W 100 ML IV SCH (21:51)
[2018-12-25] MEDS: VANCOMYCIN 1 GM in IV D5W 250 ML IV SCH (23:00)
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
[2018-12-26 04:00] VITALS: BP 133/79
[2018-12-26 06:35] LABS: CALCIUM, SERUM 8.8 mg/dL (8.5-10.1); POTASSIUM 3.5 mmol/L (3.5-5.1)
--- NOTE | 2018-12-26 07:19 | NUR ---
MS RN OPENING NOTE RECEIVED REPORT FROM [facility] SHIFT NURSE. PT ASLEEP IN BED, ON 02 VIA NC 2L/MIN, SATURATING WELL, NO SIGNS OF RESPIRATORY DISTRESS NOTED. LEFT UPPER ARM MIDLINE G20 INTACT. MRSA ISOLATION PRECAUTIONS IN PLACE. BILATERAL SOFT WRIST RESTRAINTS REMOVED TO ASSES SKIN- CHECKED FOR INTEGRITY AND CIRCULATION, BILATERAL PULSES PALPABLE, RESTRAINTS REAPPLIED. BED IN LOW POSITION, LOCKED, CALL LIGHT WITHIN REACH.
--- NOTE | 2018-12-26 07:28 | NUR ---
MS RN CLOSING NOTE PATIENT IN BED WITH NO SIGNS OF DISTRESS. HAS 2L OF O2 ON NASAL CANNULA WITH NO SIGNS OF SOB. PATIENT ON RESTRAINS WITH ADEQUATE CIRCULATION ON THE UPPER EXTREMITIES. ISOLATION PRECAUTIONS APPLIED AND ALL SAFET PRECAUTIONS. ENDORSED PATIENT TO MORNING NURSE
[2018-12-26 08:00] VITALS: BP 130/72
[2018-12-26] MEDS: HYDROGEL DRESSING 90 GM TUBE TP SCH (08:20)
[2018-12-26] MEDS: LACTOBACILLUS RHAMNOSUS GG 1 EACH CAP.SPRINK PO SCH ×2 (08:20→16:44)
[2018-12-26] MEDS: BUPROPION XL 150 MG TAB.ER.24 PO SCH (08:20)
[2018-12-26] MEDS: METOLAZONE 2.5 MG TABLET PO SCH (08:20)
[2018-12-26] MEDS: ASCORBIC ACID 500 MG TABLET PO SCH (08:20)
[2018-12-26] MEDS: MULTIVIT W/MINERALS 1 TAB TABLET PO SCH (08:20)
[2018-12-26] MEDS: CLOTRIMAZOLE 1% 15 GM TUBE TP SCH ×2 (08:21→16:42)
[2018-12-26] MEDS: SILVER SULFADIAZINE CREAM 25 GM TUBE TP SCH (08:21)
[2018-12-26] MEDS ORDERED: BUMETANIDE INJ 16 MG in IV NS 0.9% 16 ML IV ONE (10:00)
[2018-12-26] MEDS: POTASSIUM CHLORIDE 20 MEQ TAB.PRT.SR PO SCH ×2 (10:16→12:10)
[2018-12-26 11:07] LABS: *SPE A/G RATIO 0.5 (0.7-1.7); *SPE ALBUMIN 2.3 g/dL (2.9-4.4); *SPE ALPHA-1-GLOBULIN 0.4 g/dL (0.0-0.4); *SPE ALPHA-2-GLOBULIN 0.7 g/dL (0.4-1.0); *SPE BETA GLOBULIN 1.1 g/dL (0.7-1.3); *SPE GLOBULIN, TOTAL 5.1 g/dL (2.2-3.9); *SPE M-SPIKE Not Observed g/dL (Not Observed); *SPEGAMMA GLOBULIN 2.9 g/dL (0.4-1.8); PTH, INTACT 44 pg/mL (15-65)
[2018-12-26 14:00] VITALS: BP 125/74
--- NOTE | 2018-12-26 19:35 | NUR ---
MS RN CLOSING NOTE PT AWAKE IN BED, ALERT AND ORIENTED X 2, ON 02 VIA NC 2L/MIN, SATURATING WELL, NO SIGNS OF RESPIRATORY DISTRESS NOTED. CONDOM LLANES DRAINING CLEAR, YELLOW URINE. LEFT UPPER ARM MIDLINE INTACT, PATENT. PROVIDED SAFETY AND COMFORT TO PT THROUGHOUT SHIFT, ALL DUE MEDS GIVEN. TURNED AND REPOSITIONED EVERY 2 HOURS. WILL ENDORSE TO NOC SHIFT NURSE.
[2018-12-26 20:00] VITALS: BP 149/85
--- NOTE | 2018-12-26 20:31 | NUR ---
MS/RN RECEIVED PATIENT AWAKE, ALERT, COMFORTABLE, NO C/O PAIN, NO DISTRESS NOTED, CALL LIGHT IN REACH. WILL MONITOR.
[2018-12-26] MEDS: CEFTRIAXONE 2 G in IV D5W 100 ML IV SCH (22:04)
[2018-12-26] MEDS: MUPIROCIN OINT 2% 22 GM TUBE SCH (22:04)
[2018-12-26] MEDS: DOCUSATE SODIUM 100 MG CAPSULE PO SCH (22:05)
[2018-12-26] MEDS: VANCOMYCIN 1 GM in IV D5W 250 ML IV SCH (23:07)
--- NOTE | 2018-12-27 02:52 | NUR ---
MS/RN ATTEMPTED TO INSERT F/C BUT PATIENT REFUSED, SHOE PACKER SHELBIE MADE AWARE AND GAVE EXPLANATION TO THE PATIENT RE: IMPORTANCE OF THE F/C BUT PATIENT STILL REFUSED.
--- NOTE | 2018-12-27 02:53 | NUR ---
MS/RN PATIENT ATTEMPTING TO PULL OUT HIS MIDLINE, BILATERAL SOFT WRIST RESTRAINT WAS OBTAINED. WILL MONITOR PER PROTOCOL.
[2018-12-27 04:00] VITALS: BP 117/84
--- NOTE | 2018-12-27 06:17 | NUR ---
MS/RN PATIENT IS AWAKE, COMFORTABLE, NO DISTRESS NOTED, CALL LIGHT IN REACH, ON AND OF SLEEP NOTED THE WHOLE SHIFT, ALL NEEDS ATTENDED AT THIS TIME, WILL CONTINUE TO MONITOR.
--- NOTE | 2018-12-27 07:16 | NUR ---
MS RN OPENING NOTE RECEIVED REPORT FROM [facility] SHIFT NURSE. PT ASLEEP IN BED, ON 02 VIA NC 2L/MIN, SATURATING WELL, NO SIGNS OF RESPIRATORY DISTRESS NOTED. EDEMA NOTED ON BILATERAL UPPER AND LOWER EXTREMITIES. REMOVED RESTRAINTS TO CHECK FOR CIRCULATION, SKIN INTEGRITY. BILATERAL PULSES PALPABLE, STRONG. RESTRAINTS WERE REAPPLIED. BED IN LOW POSITION, LOCKED, CALL LIGHT WITHIN REACH.
[2018-12-27 07:28] LABS: CALCIUM, SERUM 8.4 mg/dL (8.5-10.1); MAGNESIUM 1.7 mg/dL (1.8-2.4); POTASSIUM 3.6 mmol/L (3.5-5.1)
[2018-12-27 08:00] VITALS: BP 121/76
[2018-12-27] MEDS: BUPROPION XL 150 MG TAB.ER.24 PO SCH (08:16)
[2018-12-27] MEDS: LACTOBACILLUS RHAMNOSUS GG 1 EACH CAP.SPRINK PO SCH ×2 (08:16→17:50)
[2018-12-27] MEDS: METOLAZONE 2.5 MG TABLET PO SCH (08:16)
[2018-12-27] MEDS: ASCORBIC ACID 500 MG TABLET PO SCH (08:16)
[2018-12-27] MEDS: MULTIVIT W/MINERALS 1 TAB TABLET PO SCH (08:16)
[2018-12-27] MEDS: CLOTRIMAZOLE 1% 15 GM TUBE TP SCH ×2 (08:18→17:50)
[2018-12-27] MEDS: MUPIROCIN OINT 2% 22 GM TUBE SCH ×2 (08:18→21:00)
[2018-12-27] MEDS: HYDROGEL DRESSING 90 GM TUBE TP SCH (08:18)
[2018-12-27] MEDS: DAKINS QUARTER STRENGTH (0.125%) 480 ML BOTTLE TOP SCH (08:18)
[2018-12-27] MEDS: TAMSULOSIN 0.4 MG CAP.SR.24H PO SCH ×2 (09:32→21:00)
[2018-12-27] MEDS: Magnesium 1GM/D5W 100ML PREMIX 100 ML IV SCH ×2 (09:58→11:03)
[2018-12-27] MEDS ORDERED: BUMETANIDE INJ 16 MG in IV NS 0.9% 16 ML IV ONE (10:00)
[2018-12-27] MEDS ORDERED: MORPHINE SULFATE INJ 2 MG/ML DISP.SYRIN IV ONE (13:30)
[2018-12-27] MEDS ORDERED: LIDOCAINE 2% JEL UROJET 10 ML MM ONE (13:30)
[2018-12-27 16:00] VITALS: BP 107/63
--- NOTE | 2018-12-27 18:50 | NUR ---
MS RN CLOSING NOTE PT AWAKE IN BED, ALERT AND ORIENTED X 2, ON 02 VIA NC 2L/MIN, SATURATING WELL, NO SIGNS OF RESPIRATORY DISTRESS NOTED. LLANES CATHETER DRAINING CLEAR YELLOW URINE. RIGHT UPPER ARM MIDLINE PATENT, INTACT. PROVIDED SAFETY AND COMFORT TO PT THROUGHOUT SHIFT, ALL DUE MEDS GIVEN. TURNED AND REPOSITIONED Q2 HOURS. BED IN LOW POSITION, LOCKED, CALL LIGHT WITHIN REACH. WILL ENDORSE TO NOC SHIFT.
--- NOTE | 2018-12-27 19:05 | NUR ---
MS RN OPENING NOTES: RECEIVED PATIENT IN BED, A/O X1, CONFUSED, AWAKE, JUST FINISHED HIS DINNER. NOT IN PAIN. NO SOB. CALL LIGHT WIHIN REACH. BED ALARM ON. CONTACT ISOLATION FOR MRSA NARES. WITH LLANES CATHETER INTACT.
[2018-12-27 20:00] VITALS: BP 111/66
[2018-12-27] MEDS: CEFTRIAXONE 2 G in IV D5W 100 ML IV SCH (21:00)
[2018-12-27] MEDS: DOCUSATE SODIUM 100 MG CAPSULE PO SCH (21:00)
--- NOTE | 2018-12-27 21:00 | NUR ---
PATIENT IS MORE COGNITIVE NOW. HE KNOWS HIS NAME, BIRTHDAY, AND WHERE HE IS. CALL LIGHT WITHIN REACH, BED ALARM ON. LLANES CATH IS INTACT DRAINING YELLOW URINE OUTPUT,WITH GOOD OUTPUT. NOTED WITH SWOLLEN AND REDNESS SCROTUM.
--- NOTE | 2018-12-27 21:04 | NUR ---
CALLED PHARMACY FOR BACTROBAN OINTMENT-[place].
[2018-12-27] MEDS: VANCOMYCIN 1 GM in IV D5W 250 ML IV SCH (22:26)
[2018-12-28 01:05] VITALS: BP 111/70
[2018-12-28 06:07] VITALS: BP 112/72
--- NOTE | 2018-12-28 06:11 | NUR ---
MS RN CLOSING NOTES: PATIENT IS RESTING COMFORTABLY IN BED, A/O X3. NO ACUTE EVENTS OVERNIGHT. NO C/O PAIN. VITALS STABLE. WITH LLANES CATH INTACT AND DRAINING GOOD OUTPUT. FLUID RESTRICTION 1L/ DAY. CONTACT ISOLATION OBSERVED. CALL LIGHT WITHIN REACH. BED IN LOWEST AND LOCKED POSITION. BED ALARM ON.
--- NOTE | 2018-12-28 07:16 | NUR ---
RN OPENING NOTES RECEIVED PATIENT SLEEPING IN BED COMFORTABLY, EASILY AROUSED. HE IS AOX3, VERBAL, AND ON BED REST. HE DOES NOT SHOW ANY S/SX OF PAIN OR DISTRESS. HE IS ON 3L OF OXYGEN VIA NC, TOLERATING WELL. LLANES CATHETER IS INTACT AND PATENT, EXCRETING CLEAR AND YELLOW URINE. SKIN IS NOT INTACT, MULTIPLE WOUNDS THROUGHOUT BODY, WILL DO WOUND CARE OCCURRING TO MD ORDER. HE IS ON CCHO DIET, TOLERATING WELL. DELMAR MIDLINE IS INTACT. HE IS ON FLUID RESTRICTIONS, 1L A DAY. SAFETY MEASURES HAVE BEEN IMPLEMENTED, CALL LIGHT IS WITHIN REACH, BED IS IN LOWEST AND LOCKED POSITION, SIDE RAILS UP X2, WILL CONTINUE TO MONITOR FOR ANY CHANGES.
[2018-12-28 07:39] LABS: CALCIUM, SERUM 8.2 mg/dL (8.5-10.1); POTASSIUM 3.5 mmol/L (3.5-5.1)
[2018-12-28 08:00] VITALS: BP 113/80
[2018-12-28] MEDS: LACTOBACILLUS RHAMNOSUS GG 1 EACH CAP.SPRINK PO SCH ×2 (09:25→17:00)
[2018-12-28] MEDS: BUPROPION XL 150 MG TAB.ER.24 PO SCH (09:25)
[2018-12-28] MEDS: METOLAZONE 2.5 MG TABLET PO SCH (09:25)
[2018-12-28] MEDS: MULTIVIT W/MINERALS 1 TAB TABLET PO SCH (09:26)
[2018-12-28] MEDS: ASCORBIC ACID 500 MG TABLET PO SCH (09:26)
[2018-12-28] MEDS: DAKINS QUARTER STRENGTH (0.125%) 480 ML BOTTLE TOP SCH (09:30)
[2018-12-28] MEDS: CLOTRIMAZOLE 1% 15 GM TUBE TP SCH ×2 (09:30→17:00)
[2018-12-28] MEDS: HYDROGEL DRESSING 90 GM TUBE TP SCH (09:30)
[2018-12-28] MEDS ORDERED: BUMETANIDE INJ 16 MG in IV NS 0.9% 16 ML IV ONE (09:30)
[2018-12-28] MEDS: MUPIROCIN OINT 2% 22 GM TUBE SCH ×2 (09:30→21:00)
[2018-12-28] MEDS: HYDROCODONE/APAP 5/325MG 1 EACH TABLET PO PRN ×2 (10:00→15:18)
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
[2018-12-28 16:00] VITALS: BP 123/77
--- NOTE | 2018-12-28 19:37 | NUR ---
RN OPENING NOTES PATIENT IS RESTING IN BED COMFORTABLY AT THIS TIME, DENIES ANY PAIN OR DISCOMFORT. PATIENT EXPERIENCE A CHANGE IN MENTAL STATUS MIDDAY, DR DENNIS WAS NOTIFIED. PSYCH CONSULT IS PENDING, VITAL SIGNS ARE STABLE, PT NEEDS HAVE BEEN MET. SAFETY MEASURES HAVE BEEN IMPLEMENTED, CALL LIGHT IS WITHIN REACH, BED IS IN LOWEST AND LOCKED POSITION, SIDE RAILS UP X2, PT HAS BEEN ENDORSED TO NIGHTSHIFT RN FOR CONTINUITY OF CARE.
--- NOTE | 2018-12-28 19:45 | NUR ---
MS RN: PT ALERT AND AWAKE. ABLE TO MAKE NEEDS KNOWN WT CONFUSION. ON 3L 02 VIA NC BUT OCCASIONALLY REMOVES IT. EXPLAINS RISKS AND BENEFITS. NO ACUTE DISTRESS. NO C/O PAIN. F/C DIURESING WELL S/P BUMEX FROM DAY SHIFT. SAFETY PRECAUTION NOTED. WILL CONTINUE TO MONITOR.
[2018-12-28 20:00] VITALS: BP 128/91
[2018-12-28] MEDS: CEFTRIAXONE 2 G in IV D5W 100 ML IV SCH (22:10)
[2018-12-28] MEDS: TAMSULOSIN 0.4 MG CAP.SR.24H PO SCH (22:15)
[2018-12-28] MEDS: DOCUSATE SODIUM 100 MG CAPSULE PO SCH (22:15)
[2018-12-29 04:00] VITALS: BP 134/86
--- NOTE | 2018-12-29 04:45 | NUR ---
MS RN: PT MORE CONFUSED AND REFUSED VITAL SIGNS AND AM CARE. STARTED SCREAMING AND HAVE BEEN REFUSING TO PUT ON NASAL CANNULA FOR PAST FEW HOURS. NOTIFIED DNP AND OBTAINED ORDER FOR STAT ABG.
[2018-12-29 05:14] LABS: ABG BASE EXCESS 8.8 mmol/L; ABG OXYGEN SATURATION 89.6 % (92.0-98.5); ABG PCO2 46.1 mmHg (35.0-45.0); ABG PH 7.479 (7.350-7.450); AaDO2 118.2 mmHg; COHb 1.6 % (0.5-1.5); MetHb 0.3 % (0.0-1.5); O2Hb 87.9 % (94.0-97.0); SITE, ABG Left Radial; VENT MODE, BG Nasal Cannula
--- NOTE | 2018-12-29 05:45 | NUR ---
MS RN: RELAYED ABG RESULT TO DR. KELLER WT NO NEW ORDER. PT IS MORE CALM AND COOPERATIVE AT THIS TIME. AGREED TO PUT ON 02 VIA NC AND BLOOD DRAWN FOR BMP. KEPT CLEAN AND DRY. BED IN LOWEST POSITION WT BRAKES ON, SIDE RAILS UP X2. HOB AT 35 DEGREES. CALL LIGHT KEPT WITHIN REACH. WILL CONTINUE TO MONITOR.
[2018-12-29 07:15] LABS: CALCIUM, SERUM 8.8 mg/dL (8.5-10.1); CREATININE 2.1 mg/dL (0.6-1.3); POTASSIUM 3.8 mmol/L (3.5-5.1)
[2018-12-29 08:00] VITALS: BP 130/82
--- NOTE | 2018-12-29 08:00 | NUR ---
MS RN NOTES PT AWAKE A/OX3 OCCASIONAL CONFUSION. ON 3L O2 NC WITH O2 97%. PT TRIES TO REMOVE THE NC AND REINFORCEMENT NEEDED TO KEEP THE NC ON NARES. NO SIGNS OF SOB NOTED. PT IS COMPLAINING OF NOT BEING ABLE TO HAVE BOWL MOVEMENT. ALL SAFETY MEASURES IMPLEMENTED, BED AT LOWEST POSITION AND LOCKED. CALL LIGHT WITHIN REACH. WILL CONTINUE TO MONITOR.
[2018-12-29] MEDS: LACTOBACILLUS RHAMNOSUS GG 1 EACH CAP.SPRINK PO SCH ×2 (09:50→19:00)
[2018-12-29] MEDS: BUPROPION XL 150 MG TAB.ER.24 PO SCH (09:50)
[2018-12-29] MEDS: MULTIVIT W/MINERALS 1 TAB TABLET PO SCH (09:51)
[2018-12-29] MEDS: ASCORBIC ACID 500 MG TABLET PO SCH (09:51)
[2018-12-29] MEDS: METOLAZONE 2.5 MG TABLET PO SCH (09:51)
[2018-12-29] MEDS: HYDROGEL DRESSING 90 GM TUBE TP SCH (09:52)
[2018-12-29] MEDS: DAKINS QUARTER STRENGTH (0.125%) 480 ML BOTTLE TOP SCH (09:52)
[2018-12-29] MEDS: CLOTRIMAZOLE 1% 15 GM TUBE TP SCH ×2 (09:53→18:59)
[2018-12-29] MEDS ORDERED: BUMETANIDE INJ 16 MG in IV NS 0.9% 16 ML IV ONE (10:30)
[2018-12-29] MEDS ORDERED: VANCOMYCIN 1 GM in IV D5W 250 ML IV SCH ×2 (11:00→23:00)
[2018-12-29 12:00] VITALS: BP 130/82
[2018-12-29] MEDS: MUPIROCIN OINT 2% 22 GM TUBE SCH ×2 (14:18→21:17)
[2018-12-29 16:00] VITALS: BP 128/72
--- NOTE | 2018-12-29 19:30 | NUR ---
MS RN NOTE RECEIVED PATIENT A/O X2 SEEMS A BIT DROWSY. PATIENT IS NASAL CANNULA 3L WITH AEROSOL ADJUSTING FINE. PATIENT TAKES OFF CANNNULA FROM TIME TO TIME AND BECOMES SOB. HAVE ADVISED HIM TO CONTINUE TO LEAVE CANNULA ON. WILL CONTINUE TO MONITOR. PATIENT HAS IV DELMAR MIDLINE PATENT AND FLUSHING. LLANES CATHETER IS PATENT AND NO SIGNS OF OBSTRUCTIONS. PATIENT HAS MULTIPLE WOUNDS WILL ADMINISTER WOUND CARE. ALL SAFETY PRECAUTIONS ARE APPLIED, CALL LIGHT WITHIN REACH, BED LOCKED IN LOW POSITION, BED ALARMS ON. WILL CONTINUE TO MONITOR PATIENT.
[2018-12-29 20:00] VITALS: BP 135/73
--- NOTE | 2018-12-29 20:17 | NUR ---
MS ELLA NOTES PT AWAKE A/OX3 OCCASIONAL CONFUSION. ON 3L O2 NC WITH O2 97%. PT TRIES TO REMOVE THE NC AND REINFORCEMENT NEEDED TO KEEP THE NC ON NARES. NO SIGNS OF SOB NOTED. PT IS COMPLAINING OF NOT BEING ABLE TO HAVE BOWL MOVEMENT. ALL SAFETY MEASURES IMPLEMENTED, BED AT LOWEST POSITION AND LOCKED. CALL LIGHT WITHIN REACH. WILL CONTINUE TO MONITOR. Addendum: 12/29/18 at 2020 by CHRISTIANO GILLIS RN AMENDED PLS DISCARD
--- NOTE | 2018-12-29 20:21 | NUR ---
MS RN NOTES PT AWAKE A/OX3. ON 3L O2 NC. SUPPOSITORY GIVEN TO PATENT AND DIGITALLY REMOVED THE FECAL IMPACT. NO ABDOMINAL PAIN IS PRESENT.NO SIGNS OF SOB NOTED. ALL NEEDS ATTENDED. ALL SAFETY MEASURES IMPLEMENTED, BED AT LOWEST POSITION AND LOCKED. CALL LIGHT WITHIN REACH. ENDORSED TO [employer] WORKER NURSE.
[2018-12-29] MEDS: TAMSULOSIN 0.4 MG CAP.SR.24H PO SCH (22:02)
[2018-12-29] MEDS: CEFTRIAXONE 2 G in IV D5W 100 ML IV SCH (22:02)
[2018-12-29] MEDS: DOCUSATE SODIUM 100 MG CAPSULE PO SCH (22:02)
--- NOTE | 2018-12-29 23:03 | NUR ---
MS RN NOTE CALLED AFTER HOURS PHARMACY AND ADVISED ABOUT PATIENTS TROUGH LEVEL BEING INCREASED TO 22. PHARMACY SAID TO HOLD 2300 VANCO.
[2018-12-30 04:00] VITALS: BP 112/66
[2018-12-30 06:37] LABS: CALCIUM, SERUM 8.8 mg/dL (8.5-10.1); CREATININE 2.2 mg/dL (0.6-1.3); POTASSIUM 3.3 mmol/L (3.5-5.1)
--- NOTE | 2018-12-30 07:35 | NUR ---
MS RN NOTES PT AWAKE A/OX3 OCCASIONAL CONFUSION. ON 3L O2 NC WITH O2 97%. NO SIGNS OF LABORED BREATHING NOTED. PT IS COMPLAINING OF NOT BEING ABLE TO HAVE BOWL MOVEMENT.DIGITALLY REMOVED THE FECAL IMPACT. ALL SAFETY MEASURES IMPLEMENTED, BED AT LOWEST POSITION AND LOCKED. CALL LIGHT WITHIN REACH. WILL CONTINUE TO MONITOR.
--- NOTE | 2018-12-30 07:54 | NUR ---
MS RN NOTE PATIENT IN BED WITH NO DISTRESS OR COMPLAIN OF ANY PAIN. ALL SAFETY [id number] APPLIED . EMDORSED PATIENT TO MORNING NURSE
[2018-12-30 08:00] VITALS: BP 124/84
[2018-12-30] MEDS: LACTOBACILLUS RHAMNOSUS GG 1 EACH CAP.SPRINK PO SCH ×2 (09:00→17:53)
[2018-12-30] MEDS: MUPIROCIN OINT 2% 22 GM TUBE SCH ×2 (09:00→21:21)
[2018-12-30] MEDS ORDERED: POTASSIUM CHLORIDE 10 MEQ TABLET.SA PO ONE (10:00)
[2018-12-30] MEDS: ASCORBIC ACID 500 MG TABLET PO SCH (10:19)
[2018-12-30] MEDS: MULTIVIT W/MINERALS 1 TAB TABLET PO SCH (10:19)
[2018-12-30] MEDS: BUPROPION XL 150 MG TAB.ER.24 PO SCH (10:20)
[2018-12-30] MEDS: METOLAZONE 2.5 MG TABLET PO SCH (10:20)
[2018-12-30] MEDS: CLOTRIMAZOLE 1% 15 GM TUBE TP SCH ×2 (10:23→17:54)
[2018-12-30] MEDS: HYDROGEL DRESSING 90 GM TUBE TP SCH (10:23)
[2018-12-30] MEDS: DAKINS QUARTER STRENGTH (0.125%) 480 ML BOTTLE TOP SCH (10:23)
[2018-12-30] MEDS ORDERED: BUMETANIDE INJ 12 MG in IV NS 0.9% 72 ML IV ONE (11:00)
[2018-12-30 12:00] VITALS: BP 108/68
[2018-12-30 16:00] VITALS: BP 108/68
--- NOTE | 2018-12-30 19:30 | NUR ---
MS RN OPENING NOTE RECEIVED PATIENT IN BED A/OX2 PATIENT IS STILL CONFUSED. ON NC WITH 3L OF O2 WITH NO SIGNS OF SOB. PATIENT HAS IV DELAMR MIDLINE PATENT AND FLUSHING. PATIENT HAS LE WEAKNESS AND IS ON BED REST. ALL SAFETY PRECAUTIONS ARE APPLIED AND NO SOB. CALL LIGHT WITHIN REACH, BED LOCKED IN LOW POSITION AND SIDE RAILS P X3. WILL CONTINUE TO MONITOR
--- NOTE | 2018-12-30 19:45 | NUR ---
MS RN NOTES PATIENT ON 3L O2 , A/O X2 WITH OCCASIONAL CONFUSION. ALL NEED ATTENDED. IV LINE PATENT AND NS TKO IS RUNNING AT 3ML /H. NO CHANGES NOTED DURING THE DAY. BED AT THE LOWEST POSITION LOCKED AND CALL LIGHT WITHIN REACH. BED SET UP ON ALARM DUE TO PT TRYING TO GET OUT OF THE BED. ENDORSED TO SHOER NURSE FOR CATRACHITA.
[2018-12-30 20:00] VITALS: BP 120/80
[2018-12-30] MEDS: CEFTRIAXONE 2 G in IV D5W 100 ML IV SCH (21:09)
[2018-12-30] MEDS: TAMSULOSIN 0.4 MG CAP.SR.24H PO SCH (22:00)
[2018-12-30] MEDS: DOCUSATE SODIUM 100 MG CAPSULE PO SCH (22:00)
--- NOTE | 2018-12-30 22:41 | NUR ---
MS RN NOTES PATIENT REFUSES TO TAKE COLACE AND FLOMAX PRESCRIBED.
[2018-12-30] MEDS ORDERED: VANCOMYCIN 1 GM in IV D5W 250 ML IV SCH (23:00)
[2018-12-30] MEDS ORDERED: LORAZEPAM INJ 2 MG/ML VIAL IV PRN (23:30)
[2018-12-31 04:00] VITALS: BP 118/79
[2018-12-31 06:46] LABS: CALCIUM, SERUM 8.9 mg/dL (8.5-10.1); CREATININE 2.1 mg/dL (0.6-1.3); POTASSIUM 3.3 mmol/L (3.5-5.1)
--- NOTE | 2018-12-31 07:20 | NUR ---
MS RN CLOSING NOTES PATIENT IN BED WITH NO SIGNS OF DISTRESS. HAS ON 3L OF O2 AND NO SOB. PATIENT ON RESTRAINTS WITH CIRCULATION CHECKED, ALL SAFETY PRECAUTIONS APPLIED. ENDORSED PATIENT TO MORNING NURSE.
--- NOTE | 2018-12-31 07:38 | NUR ---
MS RN NOTE RECEIVED PATIENT IN BED A/OX2 PATIENT IS STILL CONFUSED. ON NC WITH 3L OF O2 WITH NO SIGNS OF SOB. PATIENT HAS IV DELMAR MIDLINE PATENT AND FLUSHING. ALL SAFETY PRECAUTIONS ARE APPLIED AND NO SOB. CALL LIGHT WITHIN REACH, BED LOCKED IN LOW POSITION AND SIDE RAILS P X3. WILL CONTINUE TO MONITOR ,STILL ON SOFT RESTRAIN ,CIRCULATION CHECKED ,VS TAKEN ,
[2018-12-31 08:00] VITALS: BP 110/73
[2018-12-31] MEDS: LACTOBACILLUS RHAMNOSUS GG 1 EACH CAP.SPRINK PO SCH (08:28)
[2018-12-31] MEDS: ASCORBIC ACID 500 MG TABLET PO SCH (08:28)
[2018-12-31] MEDS: MULTIVIT W/MINERALS 1 TAB TABLET PO SCH (08:28)
[2018-12-31] MEDS: METOLAZONE 2.5 MG TABLET PO SCH (08:28)
[2018-12-31] MEDS: BUPROPION XL 150 MG TAB.ER.24 PO SCH (08:29)
[2018-12-31] MEDS: DAKINS QUARTER STRENGTH (0.125%) 480 ML BOTTLE TOP SCH (08:30)
[2018-12-31] MEDS: HYDROGEL DRESSING 90 GM TUBE TP SCH (08:31)
[2018-12-31] MEDS: CLOTRIMAZOLE 1% 15 GM TUBE TP SCH (08:31)
[2018-12-31] MEDS: MUPIROCIN OINT 2% 22 GM TUBE SCH (08:37)
--- NOTE | 2018-12-31 08:46 | NUR ---
MS RN NOTE DR HERNANDEZ AT BEDSIDE NOTIFIED THAT K 3.3 WITH ORDER GIVEN
[2018-12-31] MEDS ORDERED: POTASSIUM CHLORIDE 20 MEQ TAB.PRT.SR PO ONE (09:00)
[2018-12-31] MEDS ORDERED: BUMETANIDE (1 MG) 1 MG TABLET PO SCH (09:00)
--- NOTE | 2018-12-31 10:00 | NUR ---
MS RN NOTE PT AT BEDSIDE, PT EVAL DONE ORDERED
--- NOTE | 2018-12-31 11:34 | NUR ---
ACUPRESSURIST NOTE PER DR DENNIS OK TO DISCHARGE TO SNF ,SPICE ROOM WORKER AWARE ,WILL F\U
--- NOTE | 2018-12-31 12:33 | NUR ---
MS RN NOTE SPOKE WITH PLISSE MACHINE OPERATOR ,LOOKING FOR A PLACE WILL F\U
--- NOTE | 2018-12-31 14:39 | NUR ---
FARM MACHINERY ENGINE MECHANIC NOTE CALLED TO SNF SPOKE WITH WITH CRISTIAN REPORT GIVEN, CALLED BROTHER NOTIFIED THAT PATIENT WILL BE DISCHARGE TO SNF ,OK TO LEAVE MID LINE IN PLACE FOR FURTHER ATB
--- NOTE | 2018-12-31 15:30 | NUR ---
MS JARAMILLO NOTE AMBULANCE ARRIVED, REPORT GIVEN , BROTHER AT BEDSIDE TAKEN TO [facility] WITH STABLE CONDITION Addendum: 12/31/18 at 1645 by CASEY DENNIS RN LT UPPER MID LINE IN PLACE, OK TO LEAVE FOR FURTHER ADMINISTRATION OF ATB AT SNF
[2019-01-03] MEDS ORDERED: VANCOMYCIN 1 GM in IV D5W 250 ML IV SCH (23:00)
== END 2018-12-31 17:34 | DRG 194 ==
LOC: ER 18:16 → TELE1 22:13 → MEDSG1 12-25 10:25
PROVIDERS: ADMIT Nurse Practitioner Acute Care; ATTEND Internal Medicine
PROC: 0JB70ZZ Excision of Back Subcutaneous Tissue and Fascia, Open Approach (ICD-10-PCS; principal; 2018-12-25)
PROC: 0JB90ZZ Excision of Buttock Subcutaneous Tissue and Fascia, Open Approach (ICD-10-PCS; principal; 2018-12-25)
PROC: 05HC33Z Insertion of Infusion Device into Left Basilic Vein, Percutaneous Approach (ICD-10-PCS; principal; 2018-12-25)
DX: I13.0 Hypertensive heart and chronic kidney disease with heart failure and stage 1 through stage 4 chronic kidney disease, or unspecified chronic kidney disease (principal); N17.0 Acute kidney failure with tubular necrosis; J96.01 Acute respiratory failure with hypoxia; L89.153 Pressure ulcer of sacral region, stage 3; E11.22 Type 2 diabetes mellitus with diabetic chronic kidney disease; D68.59 Other primary thrombophilia; E44.0 Moderate protein-calorie malnutrition; E11.40 Type 2 diabetes mellitus with diabetic neuropathy, unspecified; E11.51 Type 2 diabetes mellitus with diabetic peripheral angiopathy without gangrene; E11.621 Type 2 diabetes mellitus with foot ulcer; L03.115 Cellulitis of right lower limb; I50.23 Acute on chronic systolic (congestive) heart failure; L03.116 Cellulitis of left lower limb; N18.9 Chronic kidney disease, unspecified; L97.419 Non-pressure chronic ulcer of right heel and midfoot with unspecified severity; E11.622 Type 2 diabetes mellitus with other skin ulcer; F32.9 Major depressive disorder, single episode, unspecified; E78.5 Hyperlipidemia, unspecified; E87.0 Hyperosmolality and hypernatremia; I25.10 Atherosclerotic heart disease of native coronary artery without angina pectoris; I34.0 Nonrheumatic mitral (valve) insufficiency; Z91.19 Patient's noncompliance with other medical treatment and regimen; Z79.899 Other long term (current) drug therapy; Z79.4 Long term (current) use of insulin; Z74.01 Bed confinement status; L30.4 Erythema intertrigo; J44.9 Chronic obstructive pulmonary disease, unspecified; I25.2 Old myocardial infarction; R18.8 Other ascites; I70.0 Atherosclerosis of aorta; D63.8 Anemia in other chronic diseases classified elsewhere; E66.9 Obesity, unspecified; Z68.31 Body mass index [BMI] 31.0-31.9, adult; G47.33 Obstructive sleep apnea (adult) (pediatric); K72.90 Hepatic failure, unspecified without coma; K74.60 Unspecified cirrhosis of liver
CPT/HCPCS: 36415; 36569; 36600; 71045-TC; 73620-TC; 76856-TC; 80048-TC; 80053-TC; 80061-TC; 80076-TC; 80202-TC; 81000-TC; 82550-TC; 82570-TC; 83735-TC; 83880; 83970; 84100-TC; 84155; 84155-TC; 84165; 84300-TC; 84443-TC; 84484-TC; 85025-TC; 85730-TC; 87040-TC; 87081-TC; 87086-TC; 87186-TC; 93970-TC; 97112-TC; 97530-TC; A4216; A4349; A6248; A6253; A6403; G0378; J0696; J1940; J2060; J2270; J2405; J3370; J3475; J3490; J7030; J7040; J7050; J7060

== ENCOUNTER 2019-01-06 19:49 | Inpatient (IN) | payer OTHER ==
[~2019-01-06] VITALS: Ht 182.9 cm; Wt 99.5 kg
[~2019-01-06 19:49] MED LIST changes: +ACET-868 PO; +ASCO500T9 PO; +BISA10SU11 RC; -CLIN300C11 IV; +DOCU-141 PO; +HYDR-3974 PO; -INSU100I26 SQ; -INSU100I34 SQ; +MAGN400O6 PO; +MELA3TAB63 PO; -METO25TA4 PO; +METO25TA6 PO; +MULT-439 PO; +NA P133E RC; +TYL2T PO
--- NOTE | 2019-01-06 20:08 | NUR ---
BIB FROM SNF. TO ER BED 8. AGITATED. PT YELLING FOR HELP. NO RESP DISTRESS NOTED. AGITATION WAS REPORTED 1 HR RADIOLOGICAL TECHNICIAN. NOTED PUPILS PIN POINT. AWAITING MD FOR BREONNA
[2019-01-06] MEDS ORDERED: OLANZAPINE 10 MG VIAL IM ONE ×2 (20:16→20:30)
[2019-01-06] MEDS ORDERED: IV NS 0.9% 1,000 ML BAG IV ONE ×2 (20:30→22:30)
--- NOTE | 2019-01-06 20:36 | NUR ---
MD INSTRUCT TO DO ALL INTERVENTIONS ONCE PT'S MEDICATION TAKE EFFECT, AshaYPREXIrwin, D/T PT IS AGITATED
--- NOTE | 2019-01-06 21:05 | NUR ---
PT STILL AGITATED IN BED, UNABLE TO PROCEED WITH INTERVENTIONS. PER VERBAL MD ORDER, WILL ADMINISTER ATIVAN 1MG IM X1 NOW AND APPLY MEDICAL RESTRAINTS.
[2019-01-06] MEDS ORDERED: LORAZEPAM INJ 2 MG/ML VIAL ONE (21:06)
--- NOTE | 2019-01-06 21:10 | NUR ---
IV INITIATED R FOREARM 18G. LABS DRAWN FROM SITE. SENIOR REPORT DEVELOPER AT BEDSIDE FOR COLLECTION. IV INTACT AND PATENT
--- NOTE | 2019-01-06 21:15 | NUR ---
URINE COLLECTED AND SENT TO LAB
[2019-01-06 21:20] LABS: BASOPHILS # (AUTO) 0.1 /CMM (0.0-0.2); BASOPHILS % (AUTO) 1.5 % (0.0-2.0); EOSINOPHILS % (AUTO) 2.2 % (0.0-6.0); HEMATOCRIT 37 % (39-51); HEMOGLOBIN 12.3 g/dL (13.5-17.5); LYMPHOCYTES # (AUTO) 0.8 /CMM (0.8-4.8); LYMPHOCYTES % (AUTO) 11.4 % (20.0-44.0); MEAN CORPUSCULAR HGB CONC 34 g/dl (31.0-36.0); MEAN CORPUSCULAR VOLUME 88 fL (80-96); MONOCYTES # (AUTO) 0.6 /CMM (0.1-1.30); NEUTROPHILS # (AUTO) 5.2 /CMM (1.8-8.9); NEUTROPHILS % (AUTO) 75.9 % (43.0-81.0); PLATELET COUNT (AUTO) 177 /CMM (150-450); RED BLOOD CELL COUNT(AUTO) 4.19 MIL/uL (4.5-6.0); WHITE BLOOD COUNT (AUTO) 6.9 K/uL (4.3-11.0)
[2019-01-06] MEDS ORDERED: LORAZEPAM INJ 2 MG/ML VIAL IM ONE (21:30)
[2019-01-06 21:35] LABS: SERUM AMMONIA 26 umol/L (11-32)
[2019-01-06 21:41] LABS: ALANINE AMINOTRANSFERASE 11 U/L (12-78); ALBUMIN 2.1 g/dL (3.4-5.0); ALKALINE PHOSPHATASE 188 U/L (46-116); ASPARTATE AMINOTRANSFERASE 34 U/L (15-37); BILIRUBIN,DIRECT 0.6 mg/dL (0.0-0.2); BILIRUBIN,TOTAL 0.8 mg/dL (0.2-1.0); CARBON DIOXIDE 33 mmol/L (21-32); CHLORIDE 93 mmol/L (98-107); CREATININE 2.8 mg/dL (0.6-1.3); GLUCOSE 148 mg/dL (74-106); POTASSIUM 4.3 mmol/L (3.5-5.1); SALICYLATE 5.6 mg/dL (2.8-20.0); SODIUM SERUM 133 mmol/L (136-145); TOTAL PROTEIN, SERUM 9.1 g/dL (6.4-8.2); UREA NITROGEN, BLOOD 70 mg/dL (7-18)
[2019-01-06 21:53] LABS: ACETAMINOPHEN 0 ug/ml (10-30)
--- NOTE | 2019-01-06 21:55 | NUR ---
LACTIC ACID 2.1
[2019-01-06 22:06] LABS: THYROID STIMULATING HORMONE 8.551 uIU/mL (0.358-3.74)
[2019-01-06 22:11] LABS: BILIRUBIN,URINE SMALL (NEGATIVE); BLOOD, URINE Moderate Ery/uL (NEGATIVE); KETONES,URINE Negative (NEGATIVE); LEUKOCYTE ESTERASE ,URINE Small (NEGATIVE); NITRITE, URINE Negative (NEGATIVE); PROTEIN,URINE 100 mg/dl (NEGATIVE); UGLUCOSE Negative (NEGATIVE); UROBILINOGEN,URINE 0.2 EU/dL (0.2)
[2019-01-06 22:14] LABS: APPEARANCE,URINE SLIGHTLY HAZY (CLEAR); COLOR,URINE YELLOW (YELLOW)
--- NOTE | 2019-01-06 22:24 | NUR ---
SHAYAN (BROTHER) CONTACT INFORMATION: [phone]
[2019-01-06 22:29] LABS: BACTERIA,URINE 2+ /HPF (None Seen); RBC,URINE 21-50 /HPF (0-2); SQUAMOUS EPITHELIAL CELL,UR Few /HPF (None Seen); WBC,URINE 21-50 /HPF (0-3)
[2019-01-06] MEDS ORDERED: VANCOMYCIN 1 GM in IV D5W 250 ML IV ONE (22:30)
[2019-01-06] MEDS ORDERED: PIPERACILLIN /TAZOBACTAM 3.375 G in IV D5W 50 ML IV ONE (22:30)
[2019-01-06] MEDS ORDERED: VANCOMYCIN 1 GM VIAL ONE (22:45)
[2019-01-06] MEDS ORDERED: PIPERACILLIN /TAZOBACTAM 3.375 G VIAL IV ONE (22:47)
[2019-01-06 22:54] LABS: ALCOHOL, BLOOD < 3 mg/dL (0-0)
--- NOTE | 2019-01-06 23:04 | NUR ---
SHERWIN BALDWIN, LOS WHITE NP BREASTFEEDING PEER COUNSELOR
[2019-01-06 23:11] LABS: EOSINOPHILS % (MANUAL) 2 % (0-4); LYMPHOCYTES % (MANUAL) 10 % (16-48); MONOCYTES % (MANUAL) 7 % (0-11.0); NEUTROPHILS % (MANUAL) 81 (42-76)
[2019-01-06] MEDS ORDERED: MAG HYDROX/AL HYDROX/SIMETH 30 ML UDC PO PRN (23:30)
[2019-01-06] MEDS ORDERED: ONDANSETRON HCL/PF 4 MG/2 ML VIAL IVP PRN (23:30)
[2019-01-06] MEDS ORDERED: HEPARIN SODIUM, PORCINE 5000 UNITS/1 ML VIAL SQ ONE (23:30)
[2019-01-06] MEDS ORDERED: ACETAMINOPHEN 325 MG TABLET PO PRN (23:30)
[2019-01-06] MEDS ORDERED: ZOLPIDEM TARTRATE 5 MG TABLET PO PRN (23:30)
[2019-01-07] VITALS (7 sets, daily range): BP systolic 104–119; BP diastolic 59–76
--- NOTE | 2019-01-07 00:01 | NUR ---
PAGE ASSIGNMENT 105
--- NOTE | 2019-01-07 00:23 | NUR ---
CALLED TO UNIT FOR REPORT, NURSE WILL CALL BACK
--- NOTE | 2019-01-07 00:55 | NUR ---
REPORT GIVEN TO ELLA CARBONE FOR CATRACHITA
--- NOTE | 2019-01-07 01:05 | NUR ---
PT TRASNPORTED TO UNIT ON [facility] WITH EMT AND RN AT BEDSIDE W/ ACLS PROTOCOL.NAD DURING TRANSPORT.
[2019-01-07] MEDS ORDERED: IV NS 0.9% 1,000 ML IV PRN (01:30)
[2019-01-07] MEDS ORDERED: PIPERACILLIN /TAZOBACTAM 3.375 G in IV D5W 50 ML IV SCH (04:00)
[2019-01-07 06:22] LABS: BASOPHILS # (AUTO) 0.1 /CMM (0.0-0.2); BASOPHILS % (AUTO) 1.2 % (0.0-2.0); EOSINOPHILS % (AUTO) 2.5 % (0.0-6.0); HEMATOCRIT 33 % (39-51); HEMOGLOBIN 10.9 g/dL (13.5-17.5); LYMPHOCYTES # (AUTO) 0.8 /CMM (0.8-4.8); LYMPHOCYTES % (AUTO) 9.3 % (20.0-44.0); MEAN CORPUSCULAR HGB CONC 33 g/dl (31.0-36.0); MEAN CORPUSCULAR VOLUME 88 fL (80-96); MONOCYTES # (AUTO) 0.9 /CMM (0.1-1.30); MONOCYTES % (AUTO) 10.5 % (2.0-12.0); NEUTROPHILS # (AUTO) 6.2 /CMM (1.8-8.9); NEUTROPHILS % (AUTO) 76.5 % (43.0-81.0); PLATELET COUNT (AUTO) 142 /CMM (150-450); RED BLOOD CELL COUNT(AUTO) 3.77 MIL/uL (4.5-6.0); WHITE BLOOD COUNT (AUTO) 8.1 K/uL (4.3-11.0)
[2019-01-07 06:46] LABS: CALCIUM, SERUM 8.4 mg/dL (8.5-10.1); CREATININE 2.7 mg/dL (0.6-1.3); PHOSPHORUS 5.9 mg/dL (2.5-4.9); POTASSIUM 3.1 mmol/L (3.5-5.1)
[2019-01-07] MEDS ORDERED: FEE PK DOSING 1 MIN EA MC ONE (07:16)
--- NOTE | 2019-01-07 07:32 | NUR ---
RN OPENING NOTES RECEIVED PATIENT SLEEPING, DIFFICULT TO AROUSE. HE IS VERBAL AND NON-AMBULATORY. TELEMONITOR SHOWING SINUS RHYTHM. HE HAS GENERALIZED EDEMA. MULTIPLE WOUNDS ARE PRESENT THROUGHOUT THE BODY. HE HAS A RFA 18 G INFUSING NS AT 75 ML/HR. DIMINISHED LUNG SOUNDS ON RIGHT LOWER FIELD UPON AUSCULTATION. SAFETY MEASURES HAVE BEEN M
[2019-01-07] MEDS ORDERED: LACT1CAP61 PO (08:20)
[2019-01-07] MEDS ORDERED: NUTR1PAC14 PO (08:20)
[2019-01-07] MEDS ORDERED: ONDA4TAB5 PO (08:20)
[2019-01-07] MEDS ORDERED: CEFT2FRO2 IV (08:20)
[2019-01-07] MEDS ORDERED: POTA10CA43 PO (08:20)
[2019-01-07] MEDS ORDERED: METO5TAB7 PO (08:20)
[2019-01-07] MEDS ORDERED: TAMS-12 PO (08:20)
[2019-01-07] MEDS ORDERED: ZINC220C8 PO (08:20)
[2019-01-07] MEDS ORDERED: FURO-145 PO (08:20)
[2019-01-07] MEDS: PIPERACILLIN /TAZOBACTAM 3.375 G in IV D5W 100 ML IV SCH ×2 (09:28→17:06)
--- NOTE | 2019-01-07 09:34 | NUR ---
patient waking up,trying to pull cee and iv out,unable to follow commands despite frequent cueing,md made aware,bilateral soft wrist restraint applied,awaits psyche consult.safety precaution observed.
[2019-01-07] MEDS: POTASSIUM CL. PREMIX PERIPHER. 50 ML IV SCH ×6 (10:14→15:45)
[2019-01-07 12:14] LABS: CREATININE, URINE 73.8 MG/DL (30.0-125.0); URINE TOTAL PROTEIN 164.6 mg/dL (0-11.9)
--- NOTE | 2019-01-07 12:56 | NUR ---
PATIENT IS S/P R HEEL DEBRIDEMENT, TOLERATED PROCEDURE WELL, PICTURE OF WOUND TAKEN.
[2019-01-07 13:20] LABS: APPEARANCE,URINE CLOUDY (CLEAR); BILIRUBIN,URINE NEGATIVE (NEGATIVE); BLOOD, URINE LARGE Ery/uL (NEGATIVE); COLOR,URINE DARK YELLO (YELLOW); KETONES,URINE NEGATIVE (NEGATIVE); NITRITE, URINE NEGATIVE (NEGATIVE); PH,URINE 5.5 (5.0-8.0); PROTEIN,URINE 100 mg/dl (NEGATIVE); UGLUCOSE NEGATIVE (NEGATIVE); UROBILINOGEN,URINE 0.2 EU/dL (0.2)
[2019-01-07 13:21] LABS: LEUKOCYTE ESTERASE ,URINE MODERATE (NEGATIVE)
[2019-01-07 13:53] LABS: EOSINOPHIL,URINE None Seen
[2019-01-07 13:54] LABS: BACTERIA,URINE Many /HPF (None Seen); SQUAMOUS EPITHELIAL CELL,UR Few /HPF (None Seen); WBC,URINE 51-80 /HPF (0-3)
[2019-01-07] MEDS: HYDROGEL DRESSING 90 GM TUBE TP SCH (14:30)
[2019-01-07] MEDS: CLOTRIMAZOLE 1% 15 GM TUBE TP SCH ×2 (14:30→17:00)
[2019-01-07] MEDS ORDERED: LIDOCAINE 1%-EPI 1:100,000 20 ML VIAL TP ONE (14:30)
[2019-01-07] MEDS ORDERED: OLANZAPINE 10 MG VIAL IM ONE (16:00)
[2019-01-07] MEDS: BUMETANIDE INJ 0.25 MG/ML VIAL IV SCH (17:06)
--- NOTE | 2019-01-07 19:30 | NUR ---
FRUIT HARVEST MACHINE OPERATOR OPENING NOTE RECEIVED PATIENT A/O X1. SHOWS NO SIGNS OF DISTRESS OR DISCOMFORT. PATIENT IS ON 2L OF O2 WITH O2 SAT OF 95%. PATIENT HAS ON RESTRAINTS WITH WELL CIRCULATION AND PULSE PALPABLE. SITTER IS AT BEDSIDE. PATIENT IS ON MONITOR WITH SINUS RYTHM WITH A 1ST DEGREE AV BLOCK AND HR OF 94. PATIENT HAS LLANES WITH HEMATURIA PRESENT. PATIENT HAS A RFA IV #18G AND LHAND #22g AND LFA #20G. ALL SAFETY PRECAUTIONS APPLIED, BE LOCKED IN LOW POSITION, CALL LIGHT WITHIN REACH, SIDE RAILS UP X2/ WILL CONTINUE TO MONITOR.
--- NOTE | 2019-01-07 19:37 | NUR ---
RN CLOSING NOTES PATIENT MENTAL STATUS REMAINS ALTERED. HE WAS AGGRESSIVE AND HOSTILE THE WHOLE DAY. NO ACUTE CHANGES OCCURRED THROUGHOUT THE DAY, VITAL SIGNS STABLE. SAFETY MEASURES HAVE BEEN IMPLEMENTED, PT HAS BEEN ENDORSED TO NIGHTSHIFT RN FOR CONTINUITY OF CARE.
[2019-01-07] MEDS: TAMSULOSIN 0.4 MG CAP.SR.24H PO SCH (22:00)
--- NOTE | 2019-01-07 22:00 | NUR ---
LINK MACHINE OPERATOR NOTE HELD FLOMAX .5MG PO. PATIENT HAS NOT HAD SWALLOW EVAL.
[2019-01-07] MEDS: VANCOMYCIN 1 GM in IV D5W 250 ML IV SCH (23:19)
[2019-01-08] VITALS (7 sets, daily range): BP systolic 96–108; BP diastolic 61–70
[2019-01-08] MEDS: PIPERACILLIN /TAZOBACTAM 3.375 G in IV D5W 100 ML IV SCH ×3 (01:01→17:02)
--- NOTE | 2019-01-08 02:46 | NUR ---
TELE NOTE PATIENT ON MONITOR SHOWS VTACH, PATIENT SHOWS NO SYMPTOMS OR ANY DISCOMFORT. WILL CONTINUE TO MONITOR PATIENT
[2019-01-08 05:09] LABS: ABG BASE EXCESS 4.3 mmol/L; ABG OXYGEN SATURATION 98.5 % (92.0-98.5); ABG PCO2 38.6 mmHg (35.0-45.0); ABG PH 7.478 (7.350-7.450); ABG PO2 136.1 mmHg (75.0-100.0); AaDO2 140.8 mmHg; COHb 0.8 % (0.5-1.5); MetHb 0.4 % (0.0-1.5); O2Hb 97.3 % (94.0-97.0); SITE, ABG Right Radial; VENT MODE, BG Nasal Cannula
--- NOTE | 2019-01-08 05:35 | NUR ---
RETURN CLERK NOTE CODE BLUE CALLED BY MISTAKE INSTEAD OF RAPID RESPONSE CHECKED PATIENT GLUCOSE: 82 WNL ABG'S ORDERED AT 5502 Addendum: 01/08/19 at 0656 by DWIGHT JHA RN TIME CORRECTED TO 4241
--- NOTE | 2019-01-08 05:50 | NUR ---
PULL OUT OPERATOR NOTE GIVING A PATIENT A SPONGE BATH PATIENT WAS BECOMING AGITATED AND BEGAN BREATHING HEAVILY HR WAS NORMAL AND O2SAT AT 97%. PATIENT LOSS CONSCIOUSNESS. TRIED TO AROUSE PATIENT. PATIENT BECAME UNCONSCIOUS WITH A PULSE.PATIENT ON MONITOR WAS HAVING AN EPISODE OF VTACH THAT LASTED 1 AND 1/2 MINUTES AND CALLED RAPID RESPONSE. PATIENT CAME TO ABOUT 2 MINUTES LATER. CHECKED BLOOD SUGAR LEVER WAS AT 82, AND ABG'S WERE NORMAL. PATIENT STABLE AT THE MOMENT. WILL CONTINUE TO MONITOR.
--- NOTE | 2019-01-08 06:28 | NUR ---
SPECIAL COLLECTIONS LIBRARIAN NOTE CALLED BELL PERSON DR. HERNANDEZ ABOUT PATIENT STATUS. PATIENT HAVING EPISODES OF VTACH AT 0246. 05AM FOR 1 1/2MIN AND CALLING RAPID RESPONSE AND AT 0618 ANOTHER EPISODE OF VTACH AT 0618. DR ADVISED TO WAIT FOR PRIMARY DR. WHITE TO EVALUATE PATIENT. SAYS VITALS ARE STABLE AND TO CONTINUE MONITORING UNTIL MORNING SHIFT. Addendum: 01/08/19 at 0657 by DWIGHT JHA RN PER WAIT FOR MORNING SHIFT FOR IN AM TO EVALUATE
[2019-01-08 06:41] LABS: BASOPHILS # (AUTO) 0.1 /CMM (0.0-0.2); BASOPHILS % (AUTO) 1.3 % (0.0-2.0); EOSINOPHILS % (AUTO) 1.9 % (0.0-6.0); HEMATOCRIT 36 % (39-51); HEMOGLOBIN 11.8 g/dL (13.5-17.5); LYMPHOCYTES # (AUTO) 0.8 /CMM (0.8-4.8); MEAN CORPUSCULAR HGB CONC 33 g/dl (31.0-36.0); MEAN CORPUSCULAR VOLUME 88 fL (80-96); MONOCYTES # (AUTO) 0.9 /CMM (0.1-1.30); MONOCYTES % (AUTO) 10.1 % (2.0-12.0); NEUTROPHILS # (AUTO) 6.7 /CMM (1.8-8.9); NEUTROPHILS % (AUTO) 77.7 % (43.0-81.0); PLATELET COUNT (AUTO) 147 /CMM (150-450); RED BLOOD CELL COUNT(AUTO) 4.08 MIL/uL (4.5-6.0); WHITE BLOOD COUNT (AUTO) 8.6 K/uL (4.3-11.0)
[2019-01-08 07:19] LABS: ALBUMIN 2.1 g/dL (3.4-5.0); CREATININE 2.9 mg/dL (0.6-1.3); PHOSPHORUS 5.9 mg/dL (2.5-4.9); POTASSIUM 3.8 mmol/L (3.5-5.1); TOTAL PROTEIN, SERUM 9.2 g/dL (6.4-8.2)
--- NOTE | 2019-01-08 07:20 | NUR ---
RN INITIAL NOTE PATIENT IN BED, ASLEEP. BREATHING UNLABORED. NO SIGNS OF ANY DISTRESS. SITTER AT BEDSIDE. ON 6L NC. PER NOC SHIFT, PATIENT HAD 3 EPISODES OF VTACH LAST NIGHT. PATIENT ON TELE, SR AT THIS TIME. HAS LLANES CATH WITH CLEAR AND YELLOW URINE. HAS A RIGHT FA #18 SL. ZYPREXA IM WAS GIVEN AT 1600 YESTERDAY. BED LOCKED AND IN LOWEST POSITION. WILL CONTINUE TO MONITOR
--- NOTE | 2019-01-08 07:48 | NUR ---
COLLECTOR OF AQUARIUM SPECIMENS NOTE PATIENT IN BED NO SIGNS OF RESTLESSNESS OR AGITATION. O2 SAT AT 98% NO SIGNS OF ANY DIFFICULTY BREATHING. RELAYED ALL INFORMATION OF EPISODES OF VTACH TO MORNING NURSE. ENDORSED PATIENT.
[2019-01-08] MEDS: BUPROPION XL 150 MG TAB.ER.24 PO SCH (09:00)
[2019-01-08] MEDS: BUMETANIDE INJ 0.25 MG/ML VIAL IV SCH ×2 (09:07→17:02)
[2019-01-08] MEDS: DAKINS QUARTER STRENGTH (0.125%) 480 ML BOTTLE TOP SCH (09:17)
[2019-01-08] MEDS: CLOTRIMAZOLE 1% 15 GM TUBE TP SCH ×2 (09:18→16:38)
[2019-01-08] MEDS: HYDROGEL DRESSING 90 GM TUBE TP SCH (09:18)
[2019-01-08] MEDS ORDERED: AMIODARONE 150 MG in IV D5W 100 ML IV ONE (09:30)
[2019-01-08] MEDS ORDERED: AMIODARONE 900 MG in IV D5W 500 ML IV PRN (09:30)
--- NOTE | 2019-01-08 09:51 | NUR ---
WOUND CARE CONSULT WOUND CARE RECEIVED CONSULT FOR MULTIPLE WOUNDS. WOUND CARE WILL DEFER CONSULT AND TREATMENT PLANS TO PLASTIC SURGICAL TEAM INCLUDING DPHenny MEDRANO WHO ARE ALL CURRENTLY FOLLOWING THIS PATIENT. PATIENT WITH LONNIE AT 11, ALL PRESSURE ULCER PREVENTION MEASURES ARE NOTED TO BE IN PLACE AT THIS TIME. WILL SEE PRN.
[2019-01-08] MEDS: AMIODARONE 900 MG in IV D5W 482 ML IV PRN (11:02)
--- NOTE | 2019-01-08 16:00 | NUR ---
RN NOTE PAGED DR KELLER REGARDING HIS NOTES ABOUT NGT INSERTION. NO ORDER HAS BEEN CARRIED OUT FROM DR KELLER. WAITING FOR A CALL BACK
--- NOTE | 2019-01-08 18:57 | NUR ---
RN CLOSING NOTE PATIENT IN BED, AWAKE AND ORIENTED X1. NAME ONLY. PATIENT ON TELE MONITOR, SR WITH BBB AT 81. HAS LLANES CATH. HAS RIGHT FA #18 WITH AMIO DRIP. ALSO HAS LEFT HAND #22 SL. PATIENT IS NPO. TRIED TO DO SWALLOW EVAL AND PT BUT PATIENT CANNOT COMPREHEND. ALL MEDS GIVEN. ALL NEEDS MET. BED LOCKED AND IN LOWEST POSITION. SITTER AT BEDSIDE. REPORT GIVEN TO NOC SHIFT RN FOR CATRACHITA
--- NOTE | 2019-01-08 19:22 | NUR ---
TD RN NOTES RECEIVED PT ON BED. A/O X 1 SITTER AT BEDSIDE. NASAL CANNULA 4LPM NO RESPIRATORY DISTRESS NOTED. ON TELE MONITOR SR 81 WITH BBB. IV ACCESS ON RFA G18 WITH AMIO DRIP RUNNING @ .5MG/HR. HEAD OF BED ELEVATED. SIDE RAILS UP. CALL LIGHT WITHIN REACH. BED ALARM ON. WILL CONTINUE TO MONITOR PT CLOSELY.
[2019-01-08] MEDS: TAMSULOSIN 0.4 MG CAP.SR.24H PO SCH (21:01)
[2019-01-08] MEDS: VANCOMYCIN 1 GM in IV D5W 250 ML IV SCH (22:48)
--- NOTE | 2019-01-08 22:48 | NUR ---
TD RN NOTES VANCO DOSE NOT GIVEN. VANCO TROUGH 38. PHARMACIST INFORMED.
[2019-01-09] VITALS (7 sets, daily range): BP systolic 94–183; BP diastolic 59–76
[2019-01-09] MEDS: PIPERACILLIN /TAZOBACTAM 3.375 G in IV D5W 100 ML IV SCH ×3 (00:16→17:26)
[2019-01-09 06:55] LABS: BASOPHILS # (AUTO) 0.1 /CMM (0.0-0.2); BASOPHILS % (AUTO) 1.5 % (0.0-2.0); EOSINOPHILS % (AUTO) 1.2 % (0.0-6.0); HEMATOCRIT 34 % (39-51); HEMOGLOBIN 11.1 g/dL (13.5-17.5); LYMPHOCYTES # (AUTO) 0.8 /CMM (0.8-4.8); LYMPHOCYTES % (AUTO) 9.5 % (20.0-44.0); MEAN CORPUSCULAR HGB CONC 33 g/dl (31.0-36.0); MEAN CORPUSCULAR VOLUME 87 fL (80-96); MONOCYTES # (AUTO) 1.1 /CMM (0.1-1.30); MONOCYTES % (AUTO) 12.4 % (2.0-12.0); NEUTROPHILS # (AUTO) 6.7 /CMM (1.8-8.9); NEUTROPHILS % (AUTO) 75.4 % (43.0-81.0); PLATELET COUNT (AUTO) 139 /CMM (150-450); RED BLOOD CELL COUNT(AUTO) 3.87 MIL/uL (4.5-6.0); WHITE BLOOD COUNT (AUTO) 8.9 K/uL (4.3-11.0)
[2019-01-09 07:14] LABS: CREATININE 3.5 mg/dL (0.6-1.3); MAGNESIUM 1.9 mg/dL (1.8-2.4); PHOSPHORUS 6.5 mg/dL (2.5-4.9); POTASSIUM 3.8 mmol/L (3.5-5.1)
--- NOTE | 2019-01-09 07:30 | NUR ---
TD RN AM NOTES RECEIVED PT IN BED. A/O X 1, CONFUSED. FLAT AFFECT. SITTER AT BEDSIDE. ON NASAL CANNULA 6LPM, NO RESPIRATORY DISTRESS NOTED. ON TELE MONITOR SR 74. NO SIGNS OF PAIN OR DISCOMFORT AT THIS TIME. IV ACCESS ON RFA G18 WITH AMIO DRIP RUNNING @ .5MG/HR. LEFT HAND G 22 IV ACCESS FLUSHES WELL, BOTH SITES CLEAR. SEE NURSING FLOWSHEET FOR SKIN ISSUES. NPO FOR NOW. FOR SWALLOW EVAL. HEAD OF BED ELEVATED. SIDE RAILS UP. CALL LIGHT WITHIN REACH. BED ALARM ON. WILL CONTINUE TO MONITOR PT CLOSELY.
--- NOTE | 2019-01-09 07:31 | NUR ---
TD RN NOTES NO ACUTE CHANGES NOTED DURING THE SHIFT. NO RESPIRATORY DISTRESS NOTED. NORMAL SINUS THROUGHOUT THE NIGHT. WILL ENDORSE TO THE AM NURSE FOR CONTINUITY OF CARE.
[2019-01-09] MEDS: BUMETANIDE INJ 0.25 MG/ML VIAL IV SCH (08:30)
[2019-01-09] MEDS: BUPROPION XL 150 MG TAB.ER.24 PO SCH (09:00)
--- NOTE | 2019-01-09 09:00 | NUR ---
TD NOTES DUE MEDS GIVEN EXCEPT WELLBUTRIN. PER DR. NATH AT BEDS . CONTINUE WITH AMIO DRIP FOR NOW.
[2019-01-09] MEDS: HYDROGEL DRESSING 90 GM TUBE TP SCH (09:52)
[2019-01-09] MEDS: CLOTRIMAZOLE 1% 15 GM TUBE TP SCH ×2 (09:52→17:26)
[2019-01-09] MEDS: DAKINS QUARTER STRENGTH (0.125%) 480 ML BOTTLE TOP SCH (09:54)
--- NOTE | 2019-01-09 10:45 | NUR ---
TD RN NOTES PT SEEN BY SPEECH PATHOLOGIST. RECOMMENDED PUREED DIET AND THICKENED LIQUID.
[2019-01-09] MEDS: AMIODARONE 900 MG in IV D5W 482 ML IV PRN (11:00)
[2019-01-09 11:06] LABS: *SPE A/G RATIO 0.4 (0.7-1.7); *SPE ALBUMIN 2.5 g/dL (2.9-4.4); *SPE ALPHA-1-GLOBULIN 0.4 g/dL (0.0-0.4); *SPE ALPHA-2-GLOBULIN 0.6 g/dL (0.4-1.0); *SPE BETA GLOBULIN 1.3 g/dL (0.7-1.3); *SPE GLOBULIN, TOTAL 5.8 g/dL (2.2-3.9); *SPE M-SPIKE Not Observed g/dL (Not Observed); *SPEGAMMA GLOBULIN 3.5 g/dL (0.4-1.8); PTH, INTACT 128 pg/mL (15-65)
[2019-01-09] MEDS: IV NS 0.9% 1,000 ML IV PRN (11:12)
--- NOTE | 2019-01-09 11:15 | NUR ---
TD RN NOTES SEEN BY DR. MAURO KELLER, PER HIM, MO SEDATING MEDICATIONS.
[2019-01-09 13:08] LABS: *ANCANTIMYELOPEROXIDASE (MPO) 12.8 U/mL (0.0-9.0); *ANCANTIPROTEINASE 3 (PR-3) AB <3.5 U/mL (0.0-3.5)
[2019-01-09] MEDS: FLUCONAZOLE (100 MG) 100 MG TABLET PO SCH (14:50)
--- NOTE | 2019-01-09 19:11 | NUR ---
TD RN AM CLOSING NOTES: PATIENT RECEIVED BY PM SHIFT . A/O X 1, CONFUSED. FLAT AFFECT. ON NASAL CANNULA 6LPM, NO RESPIRATORY DISTRESS NOTED. ON TELE MONITOR HEART RATE AT 99. NO SIGNS OF PAIN OR DISCOMFORT AT THIS TIME. IV ACCESS ON RFA G18 WITH AMIO DRIP RUNNING AT 0.5MG/HR. LEFT HAND G 22 IV ACCESS FLUSHES WELL, BOTH SITES CLEAR. PM CARE PROVIDED AND WOUND DRESSINGS CLEAN AND DRY ZGUARD AND MEPILEX APPLIED. SEE NURSING FLOWSHEET FOR SKIN ISSUES. PATIENT WAS SEEN BY SPEECH PATHOLOGIST, PATIENT ATE ABOUT 15% OF DINNER PLATE AND REFUSED THEN REFUSED TO EAT. PATIENT OUTPUT WAS 850 ML .HEAD OF BED ELEVATED. SIDE RAILS UP. CALL LIGHT WITHIN REACH. BED ALARM ON. WILL CONTINUE TO MONITOR PT CLOSELY.
--- NOTE | 2019-01-09 20:00 | NUR ---
TD RN NOTES RECEIVED PT ON BED. A/O X1. ON TELE MONITOR SR WITH BBB 76. ON NASAL CANNULA 5LPM NO RESPIRATORY DISTRESS NOTED. IV ACCESS ON RFA G18 WITH AMIO RUNNING @ .5MG, IV LINE PATENT AND INTACT. HEAD OF BED ELEVATED. SIDE RAILS UP. CALL LIGHT WITHIN REACH. BED ALARM ON. WILL CONTINUE TO MONITOR PT CLOSELY
--- NOTE | 2019-01-09 20:31 | NUR ---
TD RN NOTES BROTHER REFUSED TO SIGN INFORMED CONSENT FOR WOUND CHIQUITA, PER BROTHER SHAYAN ) HE WANTS TO TALK TO THE DR FIRST.
[2019-01-09] MEDS: TAMSULOSIN 0.4 MG CAP.SR.24H PO SCH (21:30)
[2019-01-09] MEDS ORDERED: HALOPERIDOL LACTATE INJ 5 MG/ML VIAL IM PRN (21:30)
--- NOTE | 2019-01-09 21:31 | NUR ---
TD RN NOTES VANCO NOT GIVEN, VAN TROUGH 32. PHARMACIST NOTIFIED
[2019-01-09] MEDS ORDERED: VANCOMYCIN 1 GM in IV D5W 250 ML IV SCH (22:00)
--- NOTE | 2019-01-09 22:00 | NUR ---
TD RN NOTES NURSING SWALLOW EVAL DONE, PT ASPIRATION RISK. WILL F/U IN AM.
[2019-01-10] VITALS: BP 94/62
[2019-01-10] MEDS: PIPERACILLIN /TAZOBACTAM 3.375 G in IV D5W 100 ML IV SCH ×3 (00:33→16:59)
[2019-01-10 04:00] VITALS: BP 96/57
[2019-01-10 07:08] LABS: BASOPHILS # (AUTO) 0.3 /CMM (0.0-0.2); BASOPHILS % (AUTO) 3.1 % (0.0-2.0); EOSINOPHILS % (AUTO) 3.5 % (0.0-6.0); HEMATOCRIT 35 % (39-51); HEMOGLOBIN 11.5 g/dL (13.5-17.5); LYMPHOCYTES % (AUTO) 10.3 % (20.0-44.0); MEAN CORPUSCULAR HGB CONC 33 g/dl (31.0-36.0); MEAN CORPUSCULAR VOLUME 88 fL (80-96); MONOCYTES # (AUTO) 1.1 /CMM (0.1-1.30); MONOCYTES % (AUTO) 11.7 % (2.0-12.0); NEUTROPHILS # (AUTO) 6.9 /CMM (1.8-8.9); NEUTROPHILS % (AUTO) 71.4 % (43.0-81.0); PLATELET COUNT (AUTO) 131 /CMM (150-450); RED BLOOD CELL COUNT(AUTO) 3.94 MIL/uL (4.5-6.0); WHITE BLOOD COUNT (AUTO) 9.7 K/uL (4.3-11.0)
[2019-01-10 07:26] LABS: CALCIUM, SERUM 8.9 mg/dL (8.5-10.1); CREATININE 3.8 mg/dL (0.6-1.3); PHOSPHORUS 6.3 mg/dL (2.5-4.9); POTASSIUM 3.6 mmol/L (3.5-5.1)
--- NOTE | 2019-01-10 07:26 | NUR ---
TD RN NOTES NO ACUTE CHANGES NOTED DURING THE SHIFT. NO RESPIRATORY DISTRESS NOTED. ENDORSED TO THE AM NURSE FOR CONTINUITY OF CARE.
[2019-01-10 08:00] VITALS: BP_SYST 110; BP_SYST 96; BP_DIAS 62; BP_DIAS 72
--- NOTE | 2019-01-10 08:15 | NUR ---
PAGE/RN PT IS IN THE BED CONFUSED. BILATERAL SOFT WRIST RESTRAINS ON.ON AMIODARONE DRIP 0.5 MG/HR ORDERED.SR ON MONITOR.F/C DRAINING WITH LAURA YELLOW URINE.PT REFUSED TO EAT BREAKFAST.WOUND COVERED WITH DRESSING.
[2019-01-10] MEDS ORDERED: HALOPERIDOL 1 MG TABLET PO SCH (09:00)
--- NOTE | 2019-01-10 09:00 | NUR ---
PAGE/RN DUE MEDS ARE GIVEN ORDERED.
[2019-01-10] MEDS: DAKINS QUARTER STRENGTH (0.125%) 480 ML BOTTLE TOP SCH (09:06)
[2019-01-10] MEDS: HYDROGEL DRESSING 90 GM TUBE TP SCH (09:07)
[2019-01-10] MEDS: CLOTRIMAZOLE 1% 15 GM TUBE TP SCH ×2 (09:08→17:00)
[2019-01-10 12:00] VITALS: BP 100/62
[2019-01-10 14:07] LABS: *ANCA ATYPICAL p-ANCA <1:20 titer (Neg:<1:20); *ANCA CYTOPLASMIC (C-ANCA) <1:20 titer (Neg:<1:20); *ANCA PERINUCLEAR (P-ANCA) <1:20 titer (Neg:<1:20)
[2019-01-10] MEDS: FLUCONAZOLE (100 MG) 100 MG TABLET PO SCH (14:56)
[2019-01-10 16:00] VITALS: BP_SYST 105; BP_SYST 96; BP_DIAS 57; BP_DIAS 62
[2019-01-10] MEDS: LACTOBACILLUS RHAMNOSUS GG 1 EACH CAP.SPRINK PO SCH (16:58)
[2019-01-10] MEDS: AMIODARONE 900 MG in IV D5W 482 ML IV PRN (17:05)
--- NOTE | 2019-01-10 17:58 | NUR ---
PAGE/RN DUE MEDS ARE GIVEN ORDERED.FAMILY AT BED SIDE.PT REFUSED EAT ALL DAY CONFUSED AND SLEEPY.MD NOTIFIED.V/S STABLE,AFEBRILE.NO PAIN REPORTED AT THIS TIME .ON AMIODARONE DRIP AND IV FLUIDS.
[2019-01-10 20:00] VITALS: BP 114/69
--- NOTE | 2019-01-10 20:00 | NUR ---
TD/RN INITIAL NOTE RECEIVED PT ON BED. A/O X1. ON TELE MONITOR SR WITH BBB 76. ON NASAL CANNULA 5LPM NO RESPIRATORY DISTRESS NOTED. IV ACCESS ON RFA G18 WITH AMIO RUNNING @ .5MG, IV LINE PATENT AND INTACT. HEAD OF BED ELEVATED. SIDE RAILS UP. CALL LIGHT WITHIN REACH. BED ALARM ON. WILL CONTINUE TO MONITOR PT CLOSELY
[2019-01-10] MEDS: TAMSULOSIN 0.4 MG CAP.SR.24H PO SCH (22:43)
[2019-01-10] MEDS ORDERED: VANCOMYCIN 1 GM in IV D5W 250 ML IV SCH (23:00)
[2019-01-11] VITALS (8 sets, daily range): BP systolic 100–136; BP diastolic 57–78
[2019-01-11] MEDS: PIPERACILLIN /TAZOBACTAM 3.375 G in IV D5W 100 ML IV SCH ×3 (01:07→16:56)
[2019-01-11 06:35] LABS: BASOPHILS # (AUTO) 0.2 /CMM (0.0-0.2); EOSINOPHILS % (AUTO) 3.6 % (0.0-6.0); HEMATOCRIT 36 % (39-51); HEMOGLOBIN 11.7 g/dL (13.5-17.5); LYMPHOCYTES % (AUTO) 10.8 % (20.0-44.0); MEAN CORPUSCULAR HGB CONC 33 g/dl (31.0-36.0); MEAN CORPUSCULAR VOLUME 88 fL (80-96); MONOCYTES # (AUTO) 1.1 /CMM (0.1-1.30); MONOCYTES % (AUTO) 11.5 % (2.0-12.0); NEUTROPHILS # (AUTO) 6.9 /CMM (1.8-8.9); NEUTROPHILS % (AUTO) 72.1 % (43.0-81.0); PLATELET COUNT (AUTO) 144 /CMM (150-450); WHITE BLOOD COUNT (AUTO) 9.5 K/uL (4.3-11.0)
--- NOTE | 2019-01-11 06:44 | NUR ---
TD/RN CLOSING NOTE ENDORSED PT ON BED. A/O X1. ON TELE MONITOR SR WITH BBB 76. ON NASAL CANNULA 5LPM NO RESPIRATORY DISTRESS NOTED. IV ACCESS ON RFA G18 WITH AMIO RUNNING @ .5MG, IV LINE PATENT AND INTACT. HEAD OF BED ELEVATED. SIDE RAILS UP. CALL LIGHT WITHIN REACH. BED ALARM ON. WILL CONTINUE TO MONITOR PT CLOSELY
[2019-01-11 07:00] LABS: CALCIUM, SERUM 9.1 mg/dL (8.5-10.1); CREATININE 4.2 mg/dL (0.6-1.3); MAGNESIUM 2.1 mg/dL (1.8-2.4); POTASSIUM 3.8 mmol/L (3.5-5.1)
--- NOTE | 2019-01-11 07:30 | NUR ---
RN NOTES RECEIVED PATIENT IN BED, AWAKE, ABLE TO TRACK, WITH REPETITIVE WORDS " PHRASE THEE LORD" NOT ON CARDIORESPIRATORY DISTRESS. WITH NASAL CANNULA WITH OXYYGEEN AT 4LPM. TOLERATING WELL. SATING WELL. SINUS RHYTHM ON THE MONITOR WITH HR ON THE HIGH 80s. IV ACCESS ON THE LH G 22: IN PLACE, WITH INFUSING IVF OF NS AT 40CC/HR AND LFA G 18: IN PLACE AND WITH INFUSING AMIODARONE DRIP AT 0.5MG/ MIN. PATIENT ON BILATERAL SOFT RESTRAINTS, IN PLACE, REMOVED AND REPLACE TO ASSESS FOR SKIN INTEGRITY, PULSES PALPABLE AND ABLE TO MOVE FINGERS FREELY. HOB KEPT ELEVATED. SAFETY MEASURES OBSERVED AND MAINTAINED. CALL LIGHT WITHIN REACH. WILL CONTINUE TO MONITOR AND ANTICIPATE NEEDS
[2019-01-11] MEDS: LACTOBACILLUS RHAMNOSUS GG 1 EACH CAP.SPRINK PO SCH ×2 (08:24→16:55)
[2019-01-11] MEDS: DAKINS QUARTER STRENGTH (0.125%) 480 ML BOTTLE TOP SCH (08:24)
[2019-01-11] MEDS: CLOTRIMAZOLE 1% 15 GM TUBE TP SCH ×2 (08:25→16:55)
[2019-01-11] MEDS: HYDROGEL DRESSING 90 GM TUBE TP SCH (08:25)
[2019-01-11] MEDS: FLUCONAZOLE (100 MG) 100 MG TABLET PO SCH (14:38)
[2019-01-11] MEDS ORDERED: BENZTROPINE MESYLATE (2MG/2ML) 2 MG/2 ML AMPUL IM ONE (15:30)
--- NOTE | 2019-01-11 19:20 | NUR ---
RN NOTES ENDORSED FOR CONTINUITY OF CARE, NOT ON ANY FORM OF DISTRESS. NO INDICATION OF PAIN NOTED AT THIS TIME. BILATERAL RESTRAINTS STILL IN PLACE. ALL NURSING NEEDS ATTENDED AND MET. HOB KEEP ELEVATED. SAFETY MEASURES OBSERVED AND MAINTAINED. CALL LIGHT PLACED WITHIN REACH AT ALL TIMES
--- NOTE | 2019-01-11 21:16 | NUR ---
RN NOTES: PATIENT RECEIVED BY PM SHIFT . A/O X 1, CONFUSED. FLAT AFFECT. ON NASAL CANNULA 2LPM, NO RESPIRATORY DISTRESS NOTED. ON TELE MONITOR HEART RATE AT 96. NO SIGNS OF PAIN OR DISCOMFORT AT THIS TIME. IV ACCESS ON RFA G18 WITH NS RUNNING AT 40/HR. LEFT HAND G 22 IV ACCESS FLUSHES WELL, BOTH SITES CLEAR. HEAD OF BED ELEVATED. SIDE RAILS UP. CALL LIGHT WITHIN REACH. BED ALARM ON. WILL CONTINUE TO MONITOR PT CLOSELY.
[2019-01-11] MEDS: TAMSULOSIN 0.4 MG CAP.SR.24H PO SCH (21:48)
[2019-01-12] VITALS (8 sets, daily range): BP systolic 110–128; BP diastolic 70–87
[2019-01-12] MEDS: PIPERACILLIN /TAZOBACTAM 3.375 G in IV D5W 100 ML IV SCH ×2 (00:26→10:03)
[2019-01-12 06:55] LABS: BASOPHILS # (AUTO) 0.2 /CMM (0.0-0.2); BASOPHILS % (AUTO) 2.1 % (0.0-2.0); EOSINOPHILS % (AUTO) 3.1 % (0.0-6.0); HEMATOCRIT 36 % (39-51); HEMOGLOBIN 11.9 g/dL (13.5-17.5); LYMPHOCYTES % (AUTO) 9.9 % (20.0-44.0); MEAN CORPUSCULAR HGB CONC 33 g/dl (31.0-36.0); MEAN CORPUSCULAR VOLUME 88 fL (80-96); MONOCYTES % (AUTO) 10.2 % (2.0-12.0); NEUTROPHILS # (AUTO) 7.4 /CMM (1.8-8.9); NEUTROPHILS % (AUTO) 74.7 % (43.0-81.0); PLATELET COUNT (AUTO) 139 /CMM (150-450); RED BLOOD CELL COUNT(AUTO) 4.14 MIL/uL (4.5-6.0)
[2019-01-12 07:13] LABS: CALCIUM, SERUM 8.9 mg/dL (8.5-10.1); CREATININE 4.4 mg/dL (0.6-1.3); MAGNESIUM 1.9 mg/dL (1.8-2.4); PHOSPHORUS 5.1 mg/dL (2.5-4.9); POTASSIUM 3.4 mmol/L (3.5-5.1)
[2019-01-12] MEDS: LACTOBACILLUS RHAMNOSUS GG 1 EACH CAP.SPRINK PO SCH ×2 (09:00→18:55)
--- NOTE | 2019-01-12 11:54 | NUR ---
Nurse Notes: Patient is not eating, culturelle not given, family at the bedside. Brother Sanjay Ferrera, , is POA, makes decisions. Patient lives alone.
[2019-01-12] MEDS ORDERED: POTASSIUM CL. PREMIX PERIPHER. 50 ML IV SCH (13:00)
[2019-01-12] MEDS: FLUCONAZOLE (100 MG) 100 MG TABLET PO SCH (14:48)
[2019-01-12] MEDS: CLOTRIMAZOLE 1% 15 GM TUBE TP SCH ×2 (14:54→18:58)
[2019-01-12] MEDS: DAKINS QUARTER STRENGTH (0.125%) 480 ML BOTTLE TOP SCH (14:55)
[2019-01-12] MEDS: HYDROGEL DRESSING 90 GM TUBE TP SCH (15:04)
[2019-01-12] MEDS: PIPERACILLIN /TAZOBACTAM 2.25 G in IV D5W 50 ML IV SCH (18:57)
[2019-01-12] MEDS: IV NS 0.9% 1,000 ML IV PRN (19:24)
[2019-01-12] MEDS: TAMSULOSIN 0.4 MG CAP.SR.24H PO SCH (22:00)
[2019-01-13] VITALS: BP_SYST 106; BP_SYST 119; BP_DIAS 54; BP_DIAS 72
[2019-01-13] MEDS: PIPERACILLIN /TAZOBACTAM 2.25 G in IV D5W 50 ML IV SCH ×3 (02:19→16:59)
[2019-01-13 04:00] VITALS: BP_SYST 108; BP_SYST 119; BP_DIAS 64; BP_DIAS 72
[2019-01-13 06:20] LABS: BASOPHILS # (AUTO) 0.1 /CMM (0.0-0.2); BASOPHILS % (AUTO) 1.3 % (0.0-2.0); EOSINOPHILS % (AUTO) 3.4 % (0.0-6.0); HEMATOCRIT 35 % (39-51); HEMOGLOBIN 11.6 g/dL (13.5-17.5); LYMPHOCYTES # (AUTO) 0.9 /CMM (0.8-4.8); LYMPHOCYTES % (AUTO) 9.8 % (20.0-44.0); MEAN CORPUSCULAR HGB CONC 33 g/dl (31.0-36.0); MEAN CORPUSCULAR VOLUME 88 fL (80-96); MONOCYTES # (AUTO) 0.9 /CMM (0.1-1.30); MONOCYTES % (AUTO) 9.3 % (2.0-12.0); NEUTROPHILS # (AUTO) 7.2 /CMM (1.8-8.9); NEUTROPHILS % (AUTO) 76.2 % (43.0-81.0); PLATELET COUNT (AUTO) 124 /CMM (150-450); RED BLOOD CELL COUNT(AUTO) 4.02 MIL/uL (4.5-6.0); WHITE BLOOD COUNT (AUTO) 9.5 K/uL (4.3-11.0)
[2019-01-13 06:30] LABS: SERUM AMMONIA < 10 umol/L (11-32)
[2019-01-13 06:44] LABS: CALCIUM, SERUM 8.8 mg/dL (8.5-10.1); CARBON DIOXIDE 26 mmol/L (21-32); CHLORIDE 104 mmol/L (98-107); CREATININE 4.5 mg/dL (0.6-1.3); GLUCOSE 80 mg/dL (74-106); PHOSPHORUS 5.4 mg/dL (2.5-4.9); POTASSIUM 3.4 mmol/L (3.5-5.1); SODIUM SERUM 144 mmol/L (136-145); UREA NITROGEN, BLOOD 75 mg/dL (7-18)
--- NOTE | 2019-01-13 07:30 | NUR ---
RN INITIAL NOTES: RECEIVED PATIENT IN BED, ASLEEP BUT EASILY AWAKEN BY TOUCH, GOES BACK TO SLEEP EASILY WILL ASSESS FURTHER WHEN THE PATIENT IS MORE AWAKE . NOT ON CARDIORESPIRATORY DISTRESS. WITH NASAL CANNULA WITH OXYGEN AT 2LPM. TOLERATING WELL. SATING WELL. SINUS RHYTHM ON THE MONITOR WITH HR ON THE 70s. IV ACCESS ON :R FA 18G IN PLACE, WITH INFUSING IVF OF NS AT 40CC/HR. LFA G 20 AND RIGHT HAND G [address] BOTH SALINE LOCKED . PATIENT ON BILATERAL SOFT RESTRAINTS, IN PLACE, REMOVED AND REPLACE TO ASSESS FOR SKIN INTEGRITY, PULSES PALPABLE AND ABLE TO MOVE FINGERS FREELY. HOB KEPT ELEVATED. SAFETY MEASURES OBSERVED AND MAINTAINED. CALL LIGHT WITHIN REACH. WILL CONTINUE TO MONITOR AND ANTICIPATE NEEDS.
[2019-01-13 08:00] VITALS: BP 107/62
[2019-01-13] MEDS: LACTOBACILLUS RHAMNOSUS GG 1 EACH CAP.SPRINK PO SCH ×2 (09:00→16:58)
[2019-01-13] MEDS: DAKINS QUARTER STRENGTH (0.125%) 480 ML BOTTLE TOP SCH (09:10)
[2019-01-13] MEDS: CLOTRIMAZOLE 1% 15 GM TUBE TP SCH ×2 (09:10→16:50)
[2019-01-13] MEDS: HYDROGEL DRESSING 90 GM TUBE TP SCH (09:11)
--- NOTE | 2019-01-13 09:59 | NUR ---
RN NOTES PATIENT IS LETHARGIC UNABLE TO FOLLOW COMMANDS - MEDS NOT GIVEN
--- NOTE | 2019-01-13 11:30 | NUR ---
RN NOTES INFORMED LAURIE VALENTIN THAT PATIENT HAS NOT BEEN EATING AND THAT HE JUST ON NS IV HYDRATION AT 40CC/HR. ASKED IF IV CAN BE CHANGED OR RATE CAN BE ADJUSTED. PER THE LATTER, WILL CHECK ON IT. A
--- NOTE | 2019-01-13 11:30 | NUR ---
RN NOTES INFORMED GWENDOLYN VALENTIN NP THAT PATIENT HAS HAD VERY POOR ORAL INTAKE. PATIENT DOES NOT FOLLOW COMMAND AND CLENCHES TEETH WHENEVER SOMETHIN IS OFFERED TO HIM. PATIENT IS ON NS HYDRATION AT 40CC/HR. PER THE LATTER SHE WILL LOOK INTO IT
[2019-01-13 12:00] VITALS: BP 101/58
[2019-01-13] MEDS: AMIODARONE 900 MG in IV D5W 482 ML IV PRN (13:28)
[2019-01-13] MEDS ORDERED: IV D5/ 0.9% NACL 1,000 ML IV ONE (14:00)
[2019-01-13] MEDS ORDERED: DEXTROSE 50%-WATER 50 ML DISP.SYRIN IV PRN (14:00)
[2019-01-13] MEDS: FLUCONAZOLE (100 MG) 100 MG TABLET PO SCH (14:32)
[2019-01-13 16:00] VITALS: BP 127/46
[2019-01-13] MEDS: BLOOD SUGAR DIAGNOSTIC 1 EACH STRIP IN SCH (17:02)
[2019-01-13] MEDS ORDERED: CLINDAMYCIN IV RTU IN D5W 900 MG/50 ML PIGGYBACK IV SCH (18:30)
--- NOTE | 2019-01-13 19:30 | NUR ---
RN NOTES CALLED [facility] CHLORINE PLANT OPERATOR TO INFORM ABOUT PATIENT WITH EPISODE OF V TACH WITH HR ON THE 150S. PATIENT BLOOD PRESSURE STABLE AT 117/61MMHG. PATIENT AWAKE. NOT ON ANY RESPIRATORY DISTRESS. STILL ON AMIODARONE DRIP AT 0.5MG/MIN AND LIFE VEST IS ON. PER THE MD, JUST KEEP AMIODARONE DRIP AND LIFE VEST ON. AND CONTINUE TO MONITOR THE PATIENT
--- NOTE | 2019-01-13 19:51 | NUR ---
RN CLOSING NOTES PATIENT RECIVED BY PM SHIFT. PATIENT IS AWAKE A/O X2 " PATIENT STATES " CALL THE PRESS" / " DO NOT TOUCH ME" . NOT ON CARDIORESPIRATORY DISTRESS. WITH NASAL CANNULA WITH OXYGEN AT 2LPM. TOLERATING WELL. SATING WELL. SINUS RHYTHM ON THE MONITOR WITH HR ON THE 70s. IV ACCESS ON :R FA 18G IN PLACE, WITH INFUSING IVF OF NS AT 40CC/HR. LFA G 20 AND RIGHT HAND G [address] BOTH SALINE LOCKED PATIENT WAS ALSO STARTED ON AMIODARONE 0.5 MG/HR FOR 24 HOURS.PATIENT WOULD EAT ABOUT TWO SOON FULLS OF APPLE SAUCE BEFORE REFUSING. PATIENT ON BILATERAL SOFT RESTRAINTS, IN PLACE, REMOVED AND REPLACE TO ASSESS FOR SKIN INTEGRITY, PULSES PALPABLE AND ABLE TO MOVE FINGERS FREELY. HOB KEPT ELEVATED. SAFETY MEASURES OBSERVED AND MAINTAINED. CALL LIGHT WITHIN REACH. WILL CONTINUE TO MONITOR AND ANTICIPATE NEEDS.
[2019-01-13 20:00] VITALS: BP 117/61
--- NOTE | 2019-01-13 20:00 | NUR ---
RN NOTES - RECEIVED PATIENT IN BED, AWAKE CONFUSED. NOT IN CARDIORESPIRATORY DISTRESS. WITH NASAL CANNULA WITH OXYGEN AT 2LPM. TOLERATING WELL. SATING WELL. SINUS RHYTHM ON THE MONITOR WITH HR ON THE 70s. IV ACCESS ON :R FA 18G IN PLACE, WITH INFUSING IVF OF D5W AT 40CC/HR. LFA G 20 AND RIGHT HAND G [address] BOTH SALINE LOCKED . PATIENT ON BILATERAL SOFT RESTRAINTS, IN PLACE, REMOVED AND REPLACE TO ASSESS FOR SKIN INTEGRITY, PULSES PALPABLE AND ABLE TO MOVE FINGERS FREELY. HOB KEPT ELEVATED. SAFETY MEASURES OBSERVED AND MAINTAINED. CALL LIGHT WITHIN REACH. WILL CONTINUE TO MONITOR AND ANTICIPATE NEEDS.
[2019-01-13] MEDS: MEROPENEM 500 MG in IV NS 0.9% 50 ML IV SCH (20:18)
[2019-01-13] MEDS ORDERED: MICAFUNGIN SODIUM 100 MG in IV NS 0.9% 100 ML IV SCH (21:00)
[2019-01-13] MEDS: CLINDAMYCIN 900 MG in IV D5W 50 ML IV SCH (21:28)
[2019-01-13] MEDS: TAMSULOSIN 0.4 MG CAP.SR.24H PO SCH (22:00)
[2019-01-14] VITALS (19 sets, daily range): BP systolic 93–123; BP diastolic 45–86
[2019-01-14] MEDS: BLOOD SUGAR DIAGNOSTIC 1 EACH STRIP IN SCH ×4 (00:54→17:29)
[2019-01-14] MEDS: CLINDAMYCIN 900 MG in IV D5W 50 ML IV SCH ×3 (05:20→21:00)
[2019-01-14 06:23] LABS: BASOPHILS # (AUTO) 0.2 /CMM (0.0-0.2); BASOPHILS % (AUTO) 1.8 % (0.0-2.0); EOSINOPHILS % (AUTO) 3.1 % (0.0-6.0); HEMATOCRIT 34 % (39-51); HEMOGLOBIN 11.2 g/dL (13.5-17.5); LYMPHOCYTES # (AUTO) 1.1 /CMM (0.8-4.8); LYMPHOCYTES % (AUTO) 9.7 % (20.0-44.0); MEAN CORPUSCULAR HGB CONC 33 g/dl (31.0-36.0); MEAN CORPUSCULAR VOLUME 88 fL (80-96); MONOCYTES # (AUTO) 0.9 /CMM (0.1-1.30); NEUTROPHILS % (AUTO) 77.4 % (43.0-81.0); PLATELET COUNT (AUTO) 143 /CMM (150-450); RED BLOOD CELL COUNT(AUTO) 3.88 MIL/uL (4.5-6.0); WHITE BLOOD COUNT (AUTO) 11.7 K/uL (4.3-11.0)
--- NOTE | 2019-01-14 06:55 | NUR ---
PT HAD MULTIPLE RUNS OF VTACH, PT NEVER LOST CONSCIOUSNESS AND NEVER LOST PULSE, PT WAS AWAKE ALERT, DENIED PAIN AND CONVERTED BACK TO NORMAL RATE AND RHYTHM. [facility] MECHANICAL EXPERT AND [facility] IMPORT CLERK DOCTOR NOTIFIED, NO NEW ORDERS, CONTINUE LIFEVEST, AMIO AND TO MONITOR
[2019-01-14 07:22] LABS: ALBUMIN 1.7 g/dL (3.4-5.0); BILIRUBIN,TOTAL 1.6 mg/dL (0.2-1.0); CALCIUM, SERUM 8.6 mg/dL (8.5-10.1); CREATININE 4.6 mg/dL (0.6-1.3); PHOSPHORUS 4.8 mg/dL (2.5-4.9); POTASSIUM 3.6 mmol/L (3.5-5.1); TOTAL PROTEIN, SERUM 8.7 g/dL (6.4-8.2)
--- NOTE | 2019-01-14 07:30 | NUR ---
AGGIE RN AM NOTES RECEIVED PT IN BED. A/O X 1, CONFUSED. ON NASAL CANNULA 2LPM, NO RESPIRATORY DISTRESS NOTED. ON TELE MONITOR JUNCTIONAL WITH RUNS OF V TACH THEN SR 89. NO SIGNS OF PAIN OR DISCOMFORT AT THIS TIME. IV ACCESS ON RFA G18 WITH AMIO DRIP RUNNING @ 0.5MG/HR. LEFT HAND G 22 IV ACCESS FLUSHES WELL, BOTH SITES CLEAR. SEE NURSING FLOWSHEET FOR SKIN ISSUES. WILL PERFORM PRESCRIBED WOUND TREATMENT IN A WHILE. ON PUREE DIET. ON SOFT ARIST RESTRAINT BILATERAL, RELEASED AND CHECKED FOR CIRCULATION THEN Q 2HOURS. HEAD OF BED ELEVATED. SIDE RAILS UP. CALL LIGHT WITHIN REACH. BED ALARM ON. WILL CONTINUE TO MONITOR PT CLOSELY.
[2019-01-14] MEDS: MEROPENEM 500 MG in IV NS 0.9% 50 ML IV SCH ×2 (09:04→19:52)
[2019-01-14] MEDS: HYDROGEL DRESSING 90 GM TUBE TP SCH (09:05)
[2019-01-14] MEDS: LACTOBACILLUS RHAMNOSUS GG 1 EACH CAP.SPRINK PO SCH ×2 (09:15→17:00)
--- NOTE | 2019-01-14 09:20 | NUR ---
TD RN NOTES DR. JO AWARE. PT HAS MULTIPLE EPISODE OF V TACH, BUT PT IS AWAKE AND ASYMPTOMATIC.
--- NOTE | 2019-01-14 09:35 | NUR ---
TD RN NOTES PT SCHEDULED FOR RENAL BIOPSY BILATERAL ON MODERATE SEDATION PER DR. BARRIOS. CONSENT NEEDED. DR. JO SPOKE WITH DR. BARRIOS, THAT IT IS NOT AN EMERGENCY CASE. PER DR. JO IF WE IT COULD BE HOLD OFF FOR A WHILE SINCE PATIENT HAD EPISODE OF SUSTAINED V TACH.
[2019-01-14] MEDS: CLOTRIMAZOLE 1% 15 GM TUBE TP SCH ×2 (10:01→17:25)
[2019-01-14] MEDS: DAKINS QUARTER STRENGTH (0.125%) 480 ML BOTTLE TOP SCH (10:01)
--- NOTE | 2019-01-14 12:30 | NUR ---
TD RN NOTES PATIENT REFUSED ACCUCHECK. VERY COMBATIVE.
--- NOTE | 2019-01-14 13:10 | NUR ---
TD RN NOTES DR. BARRIOS FOLLOWED UP ON RENAL BIOPSY. IF POSTPONED, CAN WE PUT BACK PT ON HIS PREVIOUS DIET.
[2019-01-14] MEDS: AMIODARONE 900 MG in IV D5W 482 ML IV PRN (14:32)
--- NOTE | 2019-01-14 14:55 | NUR ---
TD RN NOTES PATIENT TRANSFERRED TO ICU, BEDSIDE REPORT GIVEN. ALL BELONGINGS TRANSFERRED WELL. PADS IN PLACE. ZOLL LIFE VEST ENDORSED. MAIL PROCESSING ASSOCIATE - TIFFANIE'S NUMBER - [phone] AT HAND
--- NOTE | 2019-01-14 15:00 | NUR ---
DANCE STUDIO MANAGER NOTES RECEIVED PT FROM PAGE. AWAKE, CONFUSED, YELLING. 0M 02 VIA NC AT 2LPM. HOB ELEVATED. NO RESPIRATORY DISTRESS NOTED. DENIES ANY PAIN. CONNECTED TO MONITOR. IV LINES IN PLACE. PT ON AMIO AT 0.5MG/MIN. FC IN PLACE. NO SIGNS OF BLEEDING NOTED. PT CLEAN AND DRY. PT COMFORTABLE. WILL CLOSELY MONITOR
--- NOTE | 2019-01-14 18:37 | NUR ---
RN CLOSING NOTES NO SIGNIFICANT CHANGE NOTED. PT AWAKE, CONFUSED. FREQUENT REORIENTATION NEEDED. ON 02 VIA NC. REMAINS ON AMIO DRIP. HR WNL. KEPT CLEAN AND DRY. TX PROVIDED ORDERED. REPOSITIONED Q2. BLE ELEVATED. WILL ENDORSE FOR CONTINUITY OF CARE.
[2019-01-14] MEDS ORDERED: AMIODARONE 150 MG in IV D5W 100 ML IV PRN (19:00)
[2019-01-14] MEDS ORDERED: IV LIDOCAINE HCL/D5W/PF/500ML 2,000 MG in PREMIX 1 EA IV PRN ×3 (19:00→23:00)
--- NOTE | 2019-01-14 20:00 | NUR ---
DELIVERY AND MAIL SORTER - NOTES - RECEIVED PT IN BED. A/O X 1, CONFUSED. ON NASAL CANNULA 2LPM, NO RESPIRATORY DISTRESS NOTED. ON TELE SR W 1ST DEGREE AVB AND BBB. NO SIGNS OF PAIN OR DISCOMFORT AT THIS TIME. IV ACCESS ON RFA 18G WITH AMIO DRIP RUNNING @ 0.5MG/HR, LEFT HAND 20G, RIGHT UPPER ARM 18G IV ACCESS FLUSHES WELL, ALL SITES CLEAR. SEE NURSING FLOWSHEET FOR SKIN ISSUES. WILL PERFORM PRESCRIBED WOUND TREATMENT. NPO. ON SOFT WRIST RESTRAINT BILATERAL, RELEASED AND CHECKED FOR CIRCULATION THEN Q 2HOURS. HEAD OF BED ELEVATED. SIDE RAILS UP. CALL LIGHT WITHIN REACH. BED ALARM ON. WILL CONTINUE TO MONITOR PT CLOSELY.
[2019-01-14] MEDS: TAMSULOSIN 0.4 MG CAP.SR.24H PO SCH (21:16)
[2019-01-14 21:28] LABS: APPEARANCE,URINE CLOUDY (CLEAR); BILIRUBIN,URINE SMALL (NEGATIVE); BLOOD, URINE LARGE Ery/uL (NEGATIVE); COLOR,URINE YELLOW (YELLOW); KETONES,URINE NEGATIVE (NEGATIVE); LEUKOCYTE ESTERASE ,URINE MODERATE (NEGATIVE); NITRITE, URINE NEGATIVE (NEGATIVE); PH,URINE 5.5 (5.0-8.0); PROTEIN,URINE 100 mg/dl (NEGATIVE); UGLUCOSE NEGATIVE (NEGATIVE); UROBILINOGEN,URINE 0.2 EU/dL (0.2)
[2019-01-14 21:40] LABS: CREATININE, URINE 115.2 MG/DL (30.0-125.0); URINE TOTAL PROTEIN 363.7 mg/dL (0-11.9)
[2019-01-14 21:45] LABS: BACTERIA,URINE Few /HPF (None Seen); SQUAMOUS EPITHELIAL CELL,UR Few /HPF (None Seen); WBC,URINE 51-80 /HPF (0-3)
--- NOTE | 2019-01-14 22:00 | NUR ---
PT NOTED TO BE HAVING HALLUCINATIONS OF PEOPLE BEING IN THE ROOM WITH HATCHETS TO TAKE HIM AWAY PER THE NIECE CHRISTA, WILL ENDORSE TO DAY SHIFT
[2019-01-14 22:25] LABS: EOSINOPHIL,URINE None Seen
[2019-01-15] VITALS (46 sets, daily range): BP systolic 88–121; BP diastolic 47–70
[2019-01-15] MEDS: BLOOD SUGAR DIAGNOSTIC 1 EACH STRIP IN SCH ×4 (00:38→17:28)
[2019-01-15 04:21] LABS: BASOPHILS # (AUTO) 0.2 /CMM (0.0-0.2); BASOPHILS % (AUTO) 1.9 % (0.0-2.0); EOSINOPHILS % (AUTO) 3.3 % (0.0-6.0); HEMATOCRIT 34 % (39-51); HEMOGLOBIN 11.2 g/dL (13.5-17.5); LYMPHOCYTES % (AUTO) 9.2 % (20.0-44.0); MEAN CORPUSCULAR HGB CONC 33 g/dl (31.0-36.0); MEAN CORPUSCULAR VOLUME 89 fL (80-96); MONOCYTES % (AUTO) 8.6 % (2.0-12.0); NEUTROPHILS # (AUTO) 8.7 /CMM (1.8-8.9); PLATELET COUNT (AUTO) 140 /CMM (150-450); WHITE BLOOD COUNT (AUTO) 11.3 K/uL (4.3-11.0)
[2019-01-15 04:42] LABS: CALCIUM, SERUM 8.5 mg/dL (8.5-10.1); CREATININE 4.8 mg/dL (0.6-1.3); MAGNESIUM 2.1 mg/dL (1.8-2.4); PHOSPHORUS 5.5 mg/dL (2.5-4.9); POTASSIUM 3.5 mmol/L (3.5-5.1)
[2019-01-15] MEDS: CLINDAMYCIN 900 MG in IV D5W 50 ML IV SCH ×3 (05:20→21:41)
[2019-01-15 07:08] LABS: COMPLEMENT C3, SERUM 115 mg/dL (82-167); COMPLEMENT C4, SERUM 25 mg/dL (14-44)
--- NOTE | 2019-01-15 08:33 | NUR ---
RENAL BIOPSY ON HOLD PER ALINA LAINEZ
[2019-01-15] MEDS: MEROPENEM 500 MG in IV NS 0.9% 50 ML IV SCH ×2 (08:37→20:38)
[2019-01-15] MEDS: LACTOBACILLUS RHAMNOSUS GG 1 EACH CAP.SPRINK PO SCH ×2 (09:00→17:00)
--- NOTE | 2019-01-15 09:15 | NUR ---
ICU/INTERNET MARKETING MANAGER OF CARE REPORT GIVEN BY ICU NURSE ARPI, PT ENDORSED TO CONTINUE CARE.
--- NOTE | 2019-01-15 09:45 | NUR ---
ICU/RN AM SHIFT OPENING NOTES RECEIVED PT AWAKE IN BED, ALERT, FOLLOWS COMMAND, NO ACUTE DISTRESS, ON 2L O2 VIA N/C SATURATING @ 98%. ON TELE WITH SINUS RHYTHM WITH FIRST DEGREE AV BLOCK & LEFT BBB. WITH ON GOING IV INFUSION OF AMIODARONE @ 0.5MG/MIN. LLANES CATHETER INTACT WITH CLOUDY LAURA COLORED URINE OUTPUT. BILATERAL WRIST RESTRAINTS IN PLACED, RELEASED TO CHECK FOR CIRCULATION AND COMFORT THEN PLACED BACK. PT ON NPO STATUS AT THIS TIME. CL WITHIN REACHED AND SAFETY MAINTAINED. ON GOING MONITORING.
[2019-01-15] MEDS: HYDROGEL DRESSING 90 GM TUBE TP SCH (10:46)
[2019-01-15] MEDS: DAKINS QUARTER STRENGTH (0.125%) 480 ML BOTTLE TOP SCH (10:46)
[2019-01-15] MEDS: CLOTRIMAZOLE 1% 15 GM TUBE TP SCH ×2 (10:47→17:27)
--- NOTE | 2019-01-15 13:15 | NUR ---
HEMODIALYSIS CATHETER INSERTION Slip Presser: [facility] Fausto Tripathi NP Patient has order to insert HD catheter. Informed consent is signed and in chart. Insertion site determined to be right femoral vein. Patient was prepped using sterile technique with chlorhexidine. Patient was covered with a sterile drape and i donned a sterile gown. The insertion site was anesthetized with 1% lidocaine. Needle inserted under ultrasound guidance. Guidewire inserted through needle and needle removed. Small elie made at insertion site of approximately 2 mm. Dilator inserted over guidewire then removed. Catheter inserted fully over guidewire. Guidewire removed. Blood return at both ports. Caps placed on each port. Catheter secured with 2 sutures. Biopatch placed and covered with tegaderm. No s/s of complication. Tolerated well with minimal blood loss. Ebl 3ml.
--- NOTE | 2019-01-15 13:18 | NUR ---
ICU/RN HD CATHETER PLACEMENT HD CATHETER PLACED ON THE RIGHT FEMORAL BY LAURIE SMITH. PT TOLERATED PROCEDURE.
[2019-01-15 16:38] LABS: *ANA ANTI-CENTROMERE B AB <0.2 AI (0.0-0.9); *ANA ANTI-DNA(DS) AB, QN 1 IU/mL (0-9); *ANA ANTI-JO-1 <0.2 AI (0.0-0.9); *ANA ANTICHROMATIN ANTIBODY 0.2 AI (0.0-0.9); *ANA RNP ANTIBODIES 1.5 AI (0.0-0.9); *ANA SJOGREN'S ANTI-SS-A <0.2 AI (0.0-0.9); *ANA SJOGREN'S ANTI-SS-B <0.2 AI (0.0-0.9); *ANAANTI-SCLERODERMA-70 AB <0.2 AI (0.0-0.9); *ANASMITH AB 0.2 AI (0.0-0.9)
[2019-01-15] MEDS: Z GUARD REMEDY 2 OZ OINT TP PRN (17:27)
--- NOTE | 2019-01-15 17:30 | NUR ---
ICU/RN AFTERNOON ROUNDS PM CARE PROVIDED. NO CHANGE OF CONDITION.
[2019-01-15] MEDS: AMIODARONE 900 MG in IV D5W 482 ML IV PRN (18:41)
--- NOTE | 2019-01-15 19:30 | NUR ---
ICU/RN AM SHIFT END NOTES ALL NEEDS MET. PT ENDORSED TO PM NURSE TO CONTINUE CARE. CL WITHIN REACHED AND SAFETY MAINTAINED.
--- NOTE | 2019-01-15 20:00 | NUR ---
RN OPENING NOTES RECEIVED PT AWAKE IN BED, ALERT, FOLLOWS COMMAND, NO ACUTE DISTRESS NOTED AT THIS TIME, ON 2L O2 VIA N/C SATURATING @ 97%. ON TELE WITH SINUS RHYTHM WITH FIRST DEGREE AV BLOCK & BBB. WITH ON GOING IV INFUSION OF AMIODARONE @ 0.5MG/MIN. LLANES CATHETER INTACT WITH CLOUDY LAURA COLORED URINE OUTPUT. BILATERAL WRIST RESTRAINTS IN PLACE, RELEASED TO CHECK FOR CIRCULATION AND COMFORT THEN PLACED BACK. PT IS NPO STATUS AT THIS TIME. CALL LIGHT IS WITHIN REACHED AND SAFETY MAINTAINED AT ALL TIME. ON GOING MONITORING.
--- NOTE | 2019-01-15 21:30 | NUR ---
RN NOTES HD HAS BEEN DONE AND NOTHING WAS OUT. WILL CONTINUE TO MONITOR PATIENT CLOSELY. Addendum: 01/16/19 at 0659 by RAF MEDRANO RN PATIENT TOLERATED IT WELL.
[2019-01-15] MEDS: TAMSULOSIN 0.4 MG CAP.SR.24H PO SCH (22:00)
[2019-01-16] VITALS (59 sets, daily range): BP systolic 82–130; BP diastolic 40–89
[2019-01-16] MEDS: BLOOD SUGAR DIAGNOSTIC 1 EACH STRIP IN SCH ×4 (00:47→17:36)
[2019-01-16] MEDS: CLINDAMYCIN 900 MG in IV D5W 50 ML IV SCH ×3 (05:35→22:55)
[2019-01-16] MEDS: MEROPENEM 500 MG in IV NS 0.9% 50 ML IV SCH ×2 (08:22→20:07)
[2019-01-16] MEDS: DAKINS QUARTER STRENGTH (0.125%) 480 ML BOTTLE TOP SCH (08:23)
[2019-01-16] MEDS: HYDROGEL DRESSING 90 GM TUBE TP SCH (08:23)
[2019-01-16] MEDS: LACTOBACILLUS RHAMNOSUS GG 1 EACH CAP.SPRINK PO SCH ×2 (08:23→16:45)
[2019-01-16] MEDS: CLOTRIMAZOLE 1% 15 GM TUBE TP SCH ×2 (08:24→16:46)
--- NOTE | 2019-01-16 08:45 | NUR ---
received pt from manager secondary, a/o x1, follows simple commands, confused at times, SR with 1 degree AV block, on amio drip at 0.5mg/hr, on 2L NC sat well, NPO, swallow eval pending, f/c low output, HD patient, restraints on, v/s stable, no pain, pt turned and repositioned, seen by exterminator termite, possible transfer to [facility].
[2019-01-16 10:34] LABS: BASOPHILS # (AUTO) 0.4 /CMM (0.0-0.2); BASOPHILS % (AUTO) 3.1 % (0.0-2.0); EOSINOPHILS % (AUTO) 3.4 % (0.0-6.0); HEMATOCRIT 34 % (39-51); LYMPHOCYTES # (AUTO) 0.8 /CMM (0.8-4.8); MEAN CORPUSCULAR HGB CONC 32 g/dl (31.0-36.0); MEAN CORPUSCULAR VOLUME 89 fL (80-96); MONOCYTES # (AUTO) 0.8 /CMM (0.1-1.30); MONOCYTES % (AUTO) 6.4 % (2.0-12.0); NEUTROPHILS # (AUTO) 10.4 /CMM (1.8-8.9); NEUTROPHILS % (AUTO) 81.1 % (43.0-81.0); PLATELET COUNT (AUTO) 132 /CMM (150-450); RED BLOOD CELL COUNT(AUTO) 3.83 MIL/uL (4.5-6.0); WHITE BLOOD COUNT (AUTO) 12.9 K/uL (4.3-11.0)
[2019-01-16 10:45] LABS: ALBUMIN 1.7 g/dL (3.4-5.0); BILIRUBIN,TOTAL 1.6 mg/dL (0.2-1.0); CALCIUM, SERUM 8.4 mg/dL (8.5-10.1); CREATININE 4.5 mg/dL (0.6-1.3); PHOSPHORUS 5.1 mg/dL (2.5-4.9); POTASSIUM 3.6 mmol/L (3.5-5.1); TOTAL PROTEIN, SERUM 8.3 g/dL (6.4-8.2)
[2019-01-16] MEDS ORDERED: methylPREDNISolone SOD SUCC 500 MG in IV NS 0.9% 100 ML IV ONE (11:00)
--- NOTE | 2019-01-16 16:23 | NUR ---
pt is resting in the bed, alert, follows commands, confused at times, SR, v/s stable, no pain, pt cleaned, changed and repositioned q2hrs.
[2019-01-16] MEDS: INSULIN REGULAR, HUMAN 100 UNIT/ML 3 ML VIAL SQ PRN (17:46)
[2019-01-16] MEDS: AMIODARONE 900 MG in IV D5W 482 ML IV PRN (18:12)
[2019-01-16] MEDS ORDERED: ALBUMIN 25% 25 GM in PREMIX 1 EA IV PRN (18:30)
--- NOTE | 2019-01-16 19:30 | NUR ---
VETERINARY POULTRY INSPECTOR NOTE RECEIVED PT AWAKE AND ALERT TO NAME. FOLLOWS SOME COMMANDS. ON 2L OF O2 VIA NC. BREATHING REGULAR AND UNLABORED. HOB ELEVATED AND ON ASPIRATION PRECAUTIONS. TELE- SR WITH 1ST DEGREE BLOCK AND BBB. IVS IN PLACE AND CLEAN WITH AMIODARONE INFUSING @ 0.5 MG/HR ORDERED. BILATERAL SOFT WRIST RESTRAINTS IN PLACE AND NO DISCOLORATION NOTED WITH PALPABLE RADIAL PULSES. LLANES CATHETER IN PLACE AND DRAINING BY GRAVITY. RIGHT FEMORAL HD CATH IN PLACE AND CLEAN. BED ALARM ENABLED. WILL MONITOR.
--- NOTE | 2019-01-16 20:15 | NUR ---
BLENDING TANK HELPER NOTE DIALYSIS NURSE AT BEDSIDE.
--- NOTE | 2019-01-16 22:10 | NUR ---
WINDOW INSTALLER NOTE DIALYSIS HAS ENDED WITH 1.2 LITER OUT. VITAL SIGNS STABLE. WILL MONITOR.
[2019-01-16] MEDS: TAMSULOSIN 0.4 MG CAP.SR.24H PO SCH (22:56)
[2019-01-17] VITALS (64 sets, daily range): BP systolic 58–161; BP diastolic 23–88
[2019-01-17] MEDS: BLOOD SUGAR DIAGNOSTIC 1 EACH STRIP IN SCH ×4 (00:25→17:50)
[2019-01-17] MEDS: INSULIN REGULAR, HUMAN 100 UNIT/ML 3 ML VIAL SQ PRN ×4 (00:28→17:49)
[2019-01-17] MEDS: CLINDAMYCIN 900 MG in IV D5W 50 ML IV SCH ×3 (04:35→21:02)
[2019-01-17 04:47] LABS: BASOPHILS % (AUTO) 0.3 % (0.0-2.0); HEMATOCRIT 37 % (39-51); HEMOGLOBIN 12.1 g/dL (13.5-17.5); LYMPHOCYTES # (AUTO) 0.6 /CMM (0.8-4.8); LYMPHOCYTES % (AUTO) 4.5 % (20.0-44.0); MEAN CORPUSCULAR HGB CONC 33 g/dl (31.0-36.0); MEAN CORPUSCULAR VOLUME 89 fL (80-96); MONOCYTES # (AUTO) 0.3 /CMM (0.1-1.30); MONOCYTES % (AUTO) 2.1 % (2.0-12.0); NEUTROPHILS # (AUTO) 11.4 /CMM (1.8-8.9); NEUTROPHILS % (AUTO) 93.1 % (43.0-81.0); PLATELET COUNT (AUTO) 171 /CMM (150-450); RED BLOOD CELL COUNT(AUTO) 4.12 MIL/uL (4.5-6.0); WHITE BLOOD COUNT (AUTO) 12.2 K/uL (4.3-11.0)
[2019-01-17 05:02] LABS: ALANINE AMINOTRANSFERASE < 6 U/L (12-78); ALBUMIN 2.1 g/dL (3.4-5.0); ALKALINE PHOSPHATASE 140 U/L (46-116); ASPARTATE AMINOTRANSFERASE 22 U/L (15-37); BILIRUBIN,TOTAL 1.6 mg/dL (0.2-1.0); CALCIUM, SERUM 8.6 mg/dL (8.5-10.1); CARBON DIOXIDE 27 mmol/L (21-32); CHLORIDE 101 mmol/L (98-107); CREATININE 4.2 mg/dL (0.6-1.3); GLUCOSE 192 mg/dL (74-106); MAGNESIUM 2.1 mg/dL (1.8-2.4); PHOSPHORUS 4.8 mg/dL (2.5-4.9); POTASSIUM 4.2 mmol/L (3.5-5.1); SODIUM SERUM 139 mmol/L (136-145); TOTAL PROTEIN, SERUM 8.5 g/dL (6.4-8.2); UREA NITROGEN, BLOOD 53 mg/dL (7-18)
--- NOTE | 2019-01-17 06:33 | NUR ---
MANAGER CARDIOVASCULAR NOTE PT REMAINED STABLE DURING SHIFT. NO ACUTE DISTRESS NOTED. ALL NEEDS ATTENDED TO PROMPTLY. BED ALARM ENABLED. BILATERAL SOFT WRIST RESTRAINTS IN PLACE. PT MORE ALERT AND COMMUNICATING WITH STAFF. WAS AWAKE MOST OF THE NIGHT. NOTED WITH EPISODES OF CONFUSION. WILL ENDORSE TO NEXT SHIFT FOR CONTINUITY OF CARE.
[2019-01-17] MEDS: MEROPENEM 500 MG in IV NS 0.9% 50 ML IV SCH ×2 (08:04→20:12)
[2019-01-17] MEDS: LACTOBACILLUS RHAMNOSUS GG 1 EACH CAP.SPRINK PO SCH ×2 (08:04→16:43)
[2019-01-17] MEDS: CLOTRIMAZOLE 1% 15 GM TUBE TP SCH ×2 (08:05→16:44)
[2019-01-17] MEDS: HYDROGEL DRESSING 90 GM TUBE TP SCH (08:05)
[2019-01-17] MEDS: DAKINS QUARTER STRENGTH (0.125%) 480 ML BOTTLE TOP SCH (08:05)
--- NOTE | 2019-01-17 09:08 | NUR ---
received pt from maintenance technician 3rd shift, alert, follows commands, confused at times, SR 1 degree iv block, on amio gtt at 0.5 mg/hr, tolerates diet, HD yesterday, restraints on, v/s stable, no pain.
[2019-01-17 13:06] LABS: *ANCANTIMYELOPEROXIDASE (MPO) 14.1 U/mL (0.0-9.0); *ANCANTIPROTEINASE 3 (PR-3) AB 3.7 U/mL (0.0-3.5)
--- NOTE | 2019-01-17 14:05 | NUR ---
patient became unresponsive while having HD, no pulse, code called, CPR started, after about 45seconds HR came back, no cardiac meds given. ER doctor at the bedside intubating the patient, primary MD notified, pt is stable now, seen by systems analyst.
--- NOTE | 2019-01-17 14:05 | NUR ---
RT NOTE patient became unresponsive while having HD, Intubated pt with a 7.0 ETT 23 @ the lip.
[2019-01-17] MEDS ORDERED: SUCCINYLCHOLINE CHLORIDE 20 MG/ML VIAL IV ONE (14:46)
[2019-01-17] MEDS ORDERED: ETOMIDATE 2 MG/ML VIAL IV ONE (14:46)
[2019-01-17] MEDS: PROPOFOL 100 ML IV PRN (15:07)
[2019-01-17 16:37] LABS: ABG BASE EXCESS 1.4 mmol/L; ABG OXYGEN SATURATION 99.1 % (92.0-98.5); ABG PH 7.435 (7.350-7.450); ABG PO2 303.6 mmHg (75.0-100.0); AaDO2 370.4 mmHg; COHb 0.2 % (0.5-1.5); MetHb 0.5 % (0.0-1.5); O2Hb 98.4 % (94.0-97.0); SITE, ABG Right Radial
--- NOTE | 2019-01-17 16:40 | NUR ---
pt is resting in the bed, sedated on Diprivan at 10mcg, SR, on the vent, lungs partially congested, no edema, HD today cleaning only, v/s stable, no pain, pt cleaned, changed and repositioned q2hrs, ammunition specialist and family at the bedside.
[2019-01-17] MEDS: AMIODARONE 900 MG in IV D5W 482 ML IV PRN (16:49)
[2019-01-17] MEDS ORDERED: PHENYLEPHRINE 80 MG in IV D5W 250 ML IV PRN (17:00)
--- NOTE | 2019-01-17 19:26 | NUR ---
RCVD PT ORALLY INTUBATED WITH ETT 7.0 SECURED @ 23CM LIPLINE. VENT PLUGGED INTO RED OUTLET, VENT ALARMS ON AND AUDIBLE. AMBU BAG @ BEDSIDE, STAR ROUTE MAIL DRIVER DONE , SX DONE PRN. NO RESPIRATORY DISTRESS NOTED AT THIS TIME. WILL CONTINUE TO MONITOR THE PT.
--- NOTE | 2019-01-17 19:30 | NUR ---
ICU NOTES RECEIVED PT ON VENT VIA ORAL ET-TUBE FR #7 23CM AT LIP LINE.O2 AT 50%,A/C14,TV550 ,AND 5CM PEEP.SATURATING 98%.PT DIFFICULT TO AROUSE,DIPRIVAN DRIP DECREASED TO 5MCG/KG/MIN.MONITOR SHOWS SINU BRADYCARDIA,ON AMIODARONE DRIP AT 0.5MG/MINUTE.MAINTAINING MAP>65.ON SUPINE POSITION SEC.TO LOW BP.
--- NOTE | 2019-01-17 21:00 | NUR ---
ICU NOTES VERY SEDATED,DIFFICULT TO AROUSE EVEN W/ STERNAL STIMULATION, DIPRIVAN ON HOLD FOR NOW.
--- NOTE | 2019-01-17 21:50 | NUR ---
ICU NOTES WOKE UP VERY AGITATED W/ LT HAND TRYING TO REACH FOR ET-TUBE,DIPRIVAN DRIP RESTARTED AT 5MCG/KG/MIN.INCREASED TO 10 MCG/KG/MINUTE W/IN 5MIN. PT CONTINUES TO BE AGITATED.BNW=760IBPM,MAP74.STAYED W/ PT X10MIN TILL PT SETTLED DOWN.EXPLANATION AND REASSURANCE GIVEN,RE-ORIENTED TO TIME PLACE AND SURROUNDINGS.
[2019-01-17] MEDS: TAMSULOSIN 0.4 MG CAP.SR.24H PO SCH (22:00)
[2019-01-18] VITALS (73 sets, daily range): BP systolic 81–96; BP diastolic 42–67
--- NOTE | 2019-01-18 | NUR ---
ICU NOTES VSS.SEDATED BUT AROUSES EASILY OPENS EYES AND TRACKS.REMAINS ON DIPRIVAN AT 10MCG/KG/MIN.MONITOR SINUS BRADYCARDIA.
[2019-01-18] MEDS: BLOOD SUGAR DIAGNOSTIC 1 EACH STRIP IN SCH ×4 (00:41→17:03)
[2019-01-18] MEDS: INSULIN REGULAR, HUMAN 100 UNIT/ML 3 ML VIAL SQ PRN ×2 (00:41→05:45)
[2019-01-18] MEDS: PROPOFOL 100 ML IV PRN ×3 (02:02→23:40)
[2019-01-18] MEDS: CLINDAMYCIN 900 MG in IV D5W 50 ML IV SCH ×2 (04:37→12:14)
--- NOTE | 2019-01-18 06:00 | NUR ---
ICU NOTES CONDITION UNCHANGED.BP LOW BUT STABLE.REMAINS ON DIPRIVAN DRIP AND AMIODARONE DRIP AT 0.5MG/MIN.MONITOR SHOWS SINUS MARAL.URINE OUTPUT TEA-COLORED .HAD 1 SMALL SOFT STOOL,YELLOWISH..
[2019-01-18] MEDS: MEROPENEM 500 MG in IV NS 0.9% 50 ML IV SCH (08:21)
[2019-01-18] MEDS: LACTOBACILLUS RHAMNOSUS GG 1 EACH CAP.SPRINK PO SCH ×2 (08:21→16:30)
[2019-01-18] MEDS: HYDROGEL DRESSING 90 GM TUBE TP SCH (08:22)
[2019-01-18] MEDS: DAKINS QUARTER STRENGTH (0.125%) 480 ML BOTTLE TOP SCH (08:22)
[2019-01-18] MEDS: CLOTRIMAZOLE 1% 15 GM TUBE TP SCH ×2 (08:22→16:30)
--- NOTE | 2019-01-18 08:43 | NUR ---
received pt from composer teaching artist, sedated on diprivan at 10mcg, SB, on amio gtt at 0.5 mg/hr, on the vent, lungs partially congested, no edema, f/c low output, HD pt, restraints on, v/s stable, no pain, pt turned and repositioned, seen by Dr. Alva.
[2019-01-18 08:49] LABS: BASOPHILS # (AUTO) 0.2 /CMM (0.0-0.2); BASOPHILS % (AUTO) 0.9 % (0.0-2.0); HEMATOCRIT 35 % (39-51); HEMOGLOBIN 11.2 g/dL (13.5-17.5); LYMPHOCYTES # (AUTO) 1.1 /CMM (0.8-4.8); LYMPHOCYTES % (AUTO) 6.5 % (20.0-44.0); MEAN CORPUSCULAR HGB CONC 32 g/dl (31.0-36.0); MEAN CORPUSCULAR VOLUME 89 fL (80-96); MONOCYTES # (AUTO) 0.9 /CMM (0.1-1.30); MONOCYTES % (AUTO) 5.3 % (2.0-12.0); NEUTROPHILS # (AUTO) 15.1 /CMM (1.8-8.9); NEUTROPHILS % (AUTO) 87.3 % (43.0-81.0); PLATELET COUNT (AUTO) 167 /CMM (150-450); WHITE BLOOD COUNT (AUTO) 17.3 K/uL (4.3-11.0)
[2019-01-18 09:08] LABS: CALCIUM, SERUM 8.3 mg/dL (8.5-10.1); CREATININE 4.7 mg/dL (0.6-1.3); PHOSPHORUS 5.3 mg/dL (2.5-4.9); POTASSIUM 4.2 mmol/L (3.5-5.1)
--- NOTE | 2019-01-18 16:24 | NUR ---
patient sedated on diprivan 15mcg, SR, on the vent, lungs partially congested, no edema, receiving amio gtt at 0.5mg/hr, v/s stable, no pain, pt cleaned, changed and repositioned q2hrs.
--- NOTE | 2019-01-18 18:25 | NUR ---
RT END OF THE SHIFT REPORT, PT. REC @0700 AM 64 Y OLD MALE SEDATED ORALLY INTUBATED ETT # 7.0 @ 23 CM LIP LINE ON VENT WITH NOTED SETTINGS. EQUAL CHEST RISE NOTED B/S BILATERALLY RALES SUX'D FOR MINIMAL AMT OF WHITE THICK SECRETIONS, NO CHANGES T/O DAY. HME, NUCLEAR RADIOLOGIST DONE. VENT PLUGGED INTO RED OUT LET. AMBU BAG AT BEDSIDE. WILL CONTINUE TO MONITOR. REPORT WILL PASS TO PM SHIFT. Addendum: 01/18/19 at 1826 by LUNA EVERETT RT Amended: Links added.
[2019-01-18] MEDS: MICAFUNGIN SODIUM 100 MG in IV NS 0.9% 100 ML IV SCH (18:27)
[2019-01-18] MEDS: AMIODARONE 900 MG in IV D5W 482 ML IV PRN (18:28)
[2019-01-18] MEDS: TAMSULOSIN 0.4 MG CAP.SR.24H PO SCH (22:00)
[2019-01-19] VITALS (42 sets, daily range): BP systolic 84–136; BP diastolic 27–85
[2019-01-19 04:38] LABS: BASOPHILS # (AUTO) 0.2 /CMM (0.0-0.2); BASOPHILS % (AUTO) 1.2 % (0.0-2.0); EOSINOPHILS % (AUTO) 0.8 % (0.0-6.0); HEMATOCRIT 36 % (39-51); LYMPHOCYTES # (AUTO) 1.4 /CMM (0.8-4.8); LYMPHOCYTES % (AUTO) 9.8 % (20.0-44.0); MEAN CORPUSCULAR HGB CONC 33 g/dl (31.0-36.0); MEAN CORPUSCULAR VOLUME 88 fL (80-96); MONOCYTES # (AUTO) 1.1 /CMM (0.1-1.30); NEUTROPHILS # (AUTO) 11.4 /CMM (1.8-8.9); NEUTROPHILS % (AUTO) 80.2 % (43.0-81.0); PLATELET COUNT (AUTO) 178 /CMM (150-450); RED BLOOD CELL COUNT(AUTO) 4.16 MIL/uL (4.5-6.0); WHITE BLOOD COUNT (AUTO) 14.2 K/uL (4.3-11.0)
[2019-01-19 04:43] LABS: CALCIUM, SERUM 8.3 mg/dL (8.5-10.1); CREATININE 5.3 mg/dL (0.6-1.3); PHOSPHORUS 5.8 mg/dL (2.5-4.9)
--- NOTE | 2019-01-19 05:15 | NUR ---
WOUND CARE TREEATMENT ORDERED. KEPT DRY AND CLEAN. TURN AND REPOSITION EVERY 2 HR. NO SIGNS OFDISCOMFORT. WILL CONTINUE TO MONITOR. Addendum: 01/19/19 at 0520 by REY LEAHY RN Amended: Links added.
[2019-01-19] MEDS: PROPOFOL 100 ML IV PRN ×3 (05:58→22:48)
[2019-01-19] MEDS: BLOOD SUGAR DIAGNOSTIC 1 EACH STRIP IN SCH ×4 (05:58→17:06)
--- NOTE | 2019-01-19 06:58 | NUR ---
CLOSING NOTED. INTUBATED AND SEDATED. VENT SETTINGS AC14/PEEP5/TV550/WSO979%. NO RESP DISTRESS NOTED. SR WITH 1ST DEGREE AV BLOCK. NO SIGNS OF CHEST PAIN OR DISCOMFORT. ABD SOFT AND NONDISTENDED. 1 BM NOTED OVERNIGHT. TURN AND REPOSITION. NO SIGNS OF PAIN OR DISCOMFORT. BED BATH GIVEN. TOLERATED WELL. NO ACUTE EVENTS OVERNIGHT. WILL CONTINUE TO MONITOR.
[2019-01-19] MEDS: LACTOBACILLUS RHAMNOSUS GG 1 EACH CAP.SPRINK PO SCH ×2 (09:00→16:56)
[2019-01-19 09:08] LABS: ABG BASE EXCESS -0.7 mmol/L; ABG OXYGEN SATURATION 96.5 % (92.0-98.5); ABG PCO2 33.4 mmHg (35.0-45.0); ABG PO2 91.5 mmHg (75.0-100.0); AaDO2 155.3 mmHg; COHb 0.4 % (0.5-1.5); MetHb 0.4 % (0.0-1.5); O2Hb 95.7 % (94.0-97.0); PEEP,BG 5 cm H2O; SITE, ABG Right Radial; VENT MODE, BG AC MODE; VT, ABG 550 mL
[2019-01-19] MEDS: CLOTRIMAZOLE 1% 15 GM TUBE TP SCH ×2 (09:21→16:57)
--- NOTE | 2019-01-19 09:25 | NUR ---
rn notes 07-received patient from RN. Patient orally intubated, on ac mode, saturation up to 99% on 50% Fi02, orqal care done, 914-sedation vacation done, patient started to chew on ETT, moves arms towards tubes, restarted diprivan, monitor patient status, he maintains MAP >65.
[2019-01-19] MEDS: DAKINS QUARTER STRENGTH (0.125%) 480 ML BOTTLE TOP SCH (11:13)
[2019-01-19] MEDS: HYDROGEL DRESSING 90 GM TUBE TP SCH (11:37)
[2019-01-19] MEDS: Z GUARD REMEDY 2 OZ OINT TP PRN (12:26)
[2019-01-19] MEDS ORDERED: HYDROCORTISONE SOD SUCCINATE 100 MG/2 ML VIAL IV SCH (12:30)
[2019-01-19] MEDS: PANTOPRAZOLE 40 MG VIAL IV SCH (13:20)
--- NOTE | 2019-01-19 13:31 | NUR ---
rn notes 1130-patient on ac mode, 40% Fi02, saturates up to 100%. propofol drip at 15 mcg/kg/min and amiodarone drip at -5 mg/min. maintains MAP > 65. 1300-patient appears comfortable. his brother diana; visits and diana was updated of patient status.
[2019-01-19] MEDS: SOLU-MEDROL 500 MG IN NS 100 ML IV SCH (13:59)
[2019-01-19] MEDS ORDERED: NS 0.9% IV SCH (14:00)
[2019-01-19] MEDS ORDERED: METHYLPREDNISOLONE SOD SUCC IV SCH (14:00)
--- NOTE | 2019-01-19 14:51 | NUR ---
rn notes 1420-Hr <60bpm, Dr. Alva noitified c/o office. awaiting for call back, patient maintains MAP >65.patient follows simple command.dialysis nurse carlota also called earlier stating dialysis nurse will be in 1bout 9PM.monitor patient.
--- NOTE | 2019-01-19 15:27 | NUR ---
rn notes Dr. Alva called, he instructed to continue with the amiodarone drip, he is aware that patient HR goes to 50's when amiodarone was started. continue monitor patient.
[2019-01-19] MEDS: MICAFUNGIN SODIUM 100 MG in IV NS 0.9% 100 ML IV SCH (17:06)
--- NOTE | 2019-01-19 17:44 | NUR ---
rn notes Dr. Alva makes rounds, patient remains on amiodarone drip at 0.5 mg/min. heart rate 57-58. patient for planned HD tonight, per Dr. Alva, use the MAP >65 as basis for BP during HD.
--- NOTE | 2019-01-19 18:00 | NUR ---
RT END OF THE SHIFT REPORT, PT. REC @0700 AM 64 Y OLD MALE REMAIN SEDATED ORALLY INTUBATED ETT # 7.0 @ 23 CM LIP LINE ON VENT WITH NOTED SETTINGS. EQUAL CHEST RISE NOTED B/S BILATERALLY RALES SUX'D FOR MINIMAL AMT OF WHITE THICK SECRETIONS, ABG DONE NO CHANGES, NO CHANGES T/O DAY. HME, TAPPER BIT DONE. VENT PLUGGED INTO RED OUT LET. AMBU BAG AT BEDSIDE. WILL CONTINUE TO MONITOR. REPORT WILL PASS TO PM SHIFT. Addendum: 01/19/19 at 1801 by LUNA EVERETT RT Amended: Links added.
--- NOTE | 2019-01-19 18:40 | NUR ---
rn notes patient remains on ac mode. noted to push ETT to side of mouth, repositioned and reminded him to keep the tube in the middle of the mouth.
--- NOTE | 2019-01-19 19:25 | NUR ---
DINKEY BRAKEMAN RCD PT DX METABOLIC ENCEPHALOPATHY; PT IS SEDATED ON PROPOFOL AT 15 MCG/KG/MIN; BLSW RESTRAINTS IN PLACE WELL. NSR ON MONITOR WITH AMIODARONE 0.5 MG/HR CONTINUOUSLY RUNNING. INTUBATED 7.5 @ 23 W/VENT SETTINGS AC 14 550 40% +5; PT HAS MIN SECRETIONS. LLANES CATH WITH MIN CLOUDY TEA COLORED URINE OUTPUT. CONTINUE TO MONITOR. PT NPO AT THIS TIME. PENDING TRANSFER TO [facility].
--- NOTE | 2019-01-19 20:00 | NUR ---
FOUNDRY TENDER PT NOTED AWAKE; GRIMACING INCREASED PROPOFOL TO 20 MCG/KG/MIN CONTINUE TO MONITOR.
[2019-01-19] MEDS: AMIODARONE 900 MG in IV D5W 482 ML IV PRN (20:51)
[2019-01-19] MEDS: TAMSULOSIN 0.4 MG CAP.SR.24H PO SCH (21:03)
--- NOTE | 2019-01-19 23:09 | NUR ---
LICENSED MASSAGE THERAPIST HD RN AT BEDSIDE.
[2019-01-20] VITALS (45 sets, daily range): BP systolic 91–148; BP diastolic 39–109
[2019-01-20] MEDS: BLOOD SUGAR DIAGNOSTIC 1 EACH STRIP IN SCH ×5 (00:10→23:57)
[2019-01-20] MEDS: PROPOFOL 100 ML IV PRN ×6 (04:18→23:52)
[2019-01-20 04:21] LABS: BASOPHILS % (AUTO) 0.5 % (0.0-2.0); HEMATOCRIT 39 % (39-51); HEMOGLOBIN 12.9 g/dL (13.5-17.5); LYMPHOCYTES # (AUTO) 0.4 /CMM (0.8-4.8); LYMPHOCYTES % (AUTO) 3.6 % (20.0-44.0); MEAN CORPUSCULAR HGB CONC 33 g/dl (31.0-36.0); MEAN CORPUSCULAR VOLUME 88 fL (80-96); MONOCYTES # (AUTO) 0.1 /CMM (0.1-1.30); MONOCYTES % (AUTO) 0.7 % (2.0-12.0); NEUTROPHILS # (AUTO) 10.2 /CMM (1.8-8.9); NEUTROPHILS % (AUTO) 95.2 % (43.0-81.0); PLATELET COUNT (AUTO) 152 /CMM (150-450); RED BLOOD CELL COUNT(AUTO) 4.39 MIL/uL (4.5-6.0); WHITE BLOOD COUNT (AUTO) 10.7 K/uL (4.3-11.0)
[2019-01-20 04:31] LABS: BILIRUBIN,TOTAL 1.9 mg/dL (0.2-1.0); CALCIUM, SERUM 8.3 mg/dL (8.5-10.1); CREATININE 4.2 mg/dL (0.6-1.3); PHOSPHORUS 6.3 mg/dL (2.5-4.9); POTASSIUM 4.3 mmol/L (3.5-5.1); TOTAL PROTEIN, SERUM 7.7 g/dL (6.4-8.2)
[2019-01-20] MEDS: INSULIN REGULAR, HUMAN 100 UNIT/ML 3 ML VIAL SQ PRN (05:15)
--- NOTE | 2019-01-20 07:15 | NUR ---
RN NOTES RECEIVED PATIENT IN BED, SEDATED, HARDLY OPENS EYES ON STERNAL RUB, SEDATION VACATION INITIATED, INTUBATED WITH ET SIZE 7 AT 23CM ON THE LIP, ON VENT, SETTINGS FOLLOWS: AC AT 14, TV 550, FI02AT 40% TOLERATED WELL. BREATHING UNLABORED, SATING WELL. SINUS RHYTHM ON THE MONITOR WITH HR ON THE 60s. WITH ONGOING AMIODARONE DRIP AT 0.5MG/ HR. IV LINES IN PLACE AND INTACT, PATENT ON FLUSHING. BILATERAL SOFT RESTRAINTS IN PLACE, REMOVE AND REPLACED TO ASSESS. PULSES PALPABLE, SKIN IS INTACT, PATIENT ABLE TO MOVE FINGERS. RESTRAINTS ENSURED TIED SNUGGLY SPECIALLY THAT PATIENT ON SEDATION EVACUATION. SAFETY MEASURES ENSURED IN PLACED. BED IN LOW AND LOCKED POSITION. SIDE RAILSX2 RAISED. CALL LIGHT WITHIN REACH, WILL CONTINUE TO MONITOR PATIENT AND ANTICIPATE NEEDS
[2019-01-20] MEDS: LACTOBACILLUS RHAMNOSUS GG 1 EACH CAP.SPRINK PO SCH ×2 (09:00→17:00)
[2019-01-20] MEDS: DAKINS QUARTER STRENGTH (0.125%) 480 ML BOTTLE TOP SCH (09:31)
[2019-01-20] MEDS: HYDROGEL DRESSING 90 GM TUBE TP SCH (09:31)
[2019-01-20] MEDS: CLOTRIMAZOLE 1% 15 GM TUBE TP SCH ×2 (09:32→18:32)
--- NOTE | 2019-01-20 12:00 | NUR ---
RN NOTES INSULIN NOT GIVEN DUE TO PATIENT ON NPO STATUS
[2019-01-20] MEDS: PANTOPRAZOLE 40 MG VIAL IV SCH (14:35)
[2019-01-20] MEDS: SOLU-MEDROL 500 MG IN NS 100 ML IV SCH (14:36)
--- NOTE | 2019-01-20 15:00 | NUR ---
RN NOTES PAGED DR. JO AND INFORMED HIM THAT THE PATIENT HAD EPISODE OF BRADYCARDIA WITH HR ON THE 48BPM. PER THE LATTER, KEEP PATIENT ON AMIODARONE DRIP. HE ALSO CAME AND SEE THE PATIENT HIMSELF AT THE UNIT. HE HAD VERBALIZED THAT IT IS PROBABLY BECAUSE THE PATIENT IS ALSO SEDATED
[2019-01-20 15:06] LABS: *ANCA ATYPICAL p-ANCA <1:20 titer (Neg:<1:20); *ANCA CYTOPLASMIC (C-ANCA) <1:20 titer (Neg:<1:20); *ANCA PERINUCLEAR (P-ANCA) <1:20 titer (Neg:<1:20)
--- NOTE | 2019-01-20 16:09 | NUR ---
RT ET tube pushed in 4cm, from 23cm to 27 cm at the lip line per Dr. Samina cotto. Equal bilateral breath sounds and chest rise noted. No SOB or respiratory distress noted. Addendum: 01/20/19 at 1611 by JOSE BERGER RT Amended: Links added.
--- NOTE | 2019-01-20 17:30 | NUR ---
RN NOTES SPOKE TO DR. MICHAELS FROM [facility], SHE WAS ASKING FOR UPDATES. SHE ALSO LATER CLAIMED THAT SHE WILL CALL DR. JAIMES.
--- NOTE | 2019-01-20 17:30 | NUR ---
RT Pt received w 7.5 Ett @ 23cm and on [facility] vent w charted settings. Vent is plugged into red outlet w [facility] @ hob. Alarms are set and audible. Ett advanced 4in to 27cm @ lip line per MD order. Pt is stable. Will pass on report to warehouse shift supervisor RT. Addendum: 01/20/19 at 1749 by BRAYDEN FRAGOSO RT Amended: Links added.
--- NOTE | 2019-01-20 18:00 | NUR ---
RN NOTES SPOKE TO AMAURI FROM [facility], ASKING FOR H&P AND WAS ASKING IF POSSIBLE TO SET TRANSPORT TONIGHT. DEFERRED QUESTION TO CASE MANAGEMENT TEAM. SPOKE TO TIFFANIE, PER KRYSTAL HE WILL SEND H&P HIMSELF TO THE FAX NUMBER AMAURI GAVE #[phone].
[2019-01-20] MEDS: MICAFUNGIN SODIUM 100 MG in IV NS 0.9% 100 ML IV SCH (18:34)
[2019-01-20] MEDS: AMIODARONE 900 MG in IV D5W 482 ML IV PRN (18:46)
--- NOTE | 2019-01-20 19:35 | NUR ---
RN NOTES ENDORSED PATIENT FOR CONTINUITY OF CARE. NOT ON ANY FORM OF DISTRESS. HR ON THE 46BPM. HANDS OFF
--- NOTE | 2019-01-20 20:38 | NUR ---
RECEIVED PT INTUBATED WITH 7.0 ETT SECURED AT 27CM AT THE LIP. NO RESP DISTRESS NOTED. PT TOLERATING VENT SETTINGS. B/S COARSE BILAT. EQUAL CHEST RISE. SX'D FOR SML AMT OF THIN WHITE SECRETIONS. VENT ALARMS SET AND AUDIBLE. AMBU BAG AT BEDSIDE. CONTINUE [facility] VENT SUPPORT. Addendum: 01/20/19 at 2040 by SRIDEVI FLORES RT Amended: Links added.
[2019-01-20] MEDS: TAMSULOSIN 0.4 MG CAP.SR.24H PO SCH (22:00)
[2019-01-21] VITALS (58 sets, daily range): BP systolic 93–155; BP diastolic 45–91
[2019-01-21] MEDS: INSULIN REGULAR, HUMAN 100 UNIT/ML 3 ML VIAL SQ PRN ×5 (00:03→23:54)
--- NOTE | 2019-01-21 00:35 | NUR ---
RN NOTES RECEIVED PATIENT IN BED, SEDATED, WITH EYES CLOSED WITH ET SIZE 7 AT 23CM ON THE LIP, ON MECHANICAL VENTILATOR, TOLERATED SETTINGS WELL, NO SOB/ACUTE DISTRESS NOTED, SATING WELL, SINUS MARAL ON THE MONITOR WITH HR ON THE 40s, ON AMIODARONE DRIP AT 0.5MG/MC, AND PROPOFOL 35MCG/KG/MIN, ALL IV LINES IN PLACE PATENT AND INTACT, BILATERAL SOFT RESTRAINTS IN PLACE, CHECKED AT THIS TIME, NO ABNORMALITY NOTED OR CIRCULATION COMPROMISED, RESPOND TO TACTILE STIMULI, SAFETY MEASURES ENSURED IN PLACED. BED LOCKED AND LOW POSITION, SIDE RAILSX2 RAISED, CALL LIGHT WITHIN REACH, WILL CONTINUE TO MONITOR CLOSELY.
[2019-01-21] MEDS: PROPOFOL 100 ML IV PRN ×3 (04:31→20:52)
[2019-01-21 04:44] LABS: BASOPHILS % (AUTO) 0.2 % (0.0-2.0); HEMATOCRIT 38 % (39-51); HEMOGLOBIN 12.4 g/dL (13.5-17.5); LYMPHOCYTES # (AUTO) 0.6 /CMM (0.8-4.8); LYMPHOCYTES % (AUTO) 5.2 % (20.0-44.0); MEAN CORPUSCULAR HGB CONC 33 g/dl (31.0-36.0); MEAN CORPUSCULAR VOLUME 88 fL (80-96); MONOCYTES # (AUTO) 0.2 /CMM (0.1-1.30); MONOCYTES % (AUTO) 1.9 % (2.0-12.0); NEUTROPHILS # (AUTO) 10.4 /CMM (1.8-8.9); NEUTROPHILS % (AUTO) 92.7 % (43.0-81.0); PLATELET COUNT (AUTO) 174 /CMM (150-450); RED BLOOD CELL COUNT(AUTO) 4.29 MIL/uL (4.5-6.0); WHITE BLOOD COUNT (AUTO) 11.2 K/uL (4.3-11.0)
[2019-01-21 05:02] LABS: CALCIUM, SERUM 8.1 mg/dL (8.5-10.1); CREATININE 4.4 mg/dL (0.6-1.3); PHOSPHORUS 6.8 mg/dL (2.5-4.9); POTASSIUM 3.6 mmol/L (3.5-5.1)
[2019-01-21] MEDS: BLOOD SUGAR DIAGNOSTIC 1 EACH STRIP IN SCH ×4 (06:08→23:53)
--- NOTE | 2019-01-21 07:10 | NUR ---
RN NOTES PATIENT IN BED, SEDATED, WITH EYES CLOSED BUT AROUSES TO TACTILE STIMULI, WITH ET SIZE 7 ON MECHANICAL VENTILATOR, TOLERATED SETTINGS WELL, NO SOB/ACUTE DISTRESS NOTED, SATING WELL, SINUS MARAL ON THE MONITOR WITH HR ON THE 40-50S ALL NIGHT, MD AWARE, CONTINUE ON AMIODARONE DRIP AT 0.5MG/MC, AND PROPOFOL 35MCG/KG/MIN, ALL IV LINES IN PLACE PATENT AND INTACT, BILATERAL SOFT RESTRAINTS IN PLACE, CHECKED AT THIS TIME, FREQUENT CHECKS DONE, NO ABNORMALITY NOTED OR CIRCULATION COMPROMISED, PATIENT DRY AND CLEAN AND WOUND TX DONE, SAFETY MEASURES ENSURED IN PLACED, BED LOCKED AND LOW POSITION, SIDE RAILSX2 RAISED, CALL LIGHT WITHIN REACH, ENDORSED TO CHRISSY, ELLA FOR CONTINUATION OF CARE, ENDORSED ALSO THAT PIPA WOUND NURSE, REQUIRING TO TAKE PICTURES IF PATIENT IS DC.
--- NOTE | 2019-01-21 07:11 | NUR ---
RN NOTES RECEIVED PT ON BED INTUBATED, SEDATED , WITH EYES CLOSED BUT AROUSES TO TACTILE STIMULI, TOLERATING CURRENT VENT SETTING WELL, NO DISTRESS NOTED, SINUS MARAL ON THE MONITOR WITH HR ON THE 40-50'S , PROPOFOL 35MCG/KG/MIN, ALL IV LINES IN PLACE PATENT AND INTACT, BILATERAL SOFT RESTRAINTS IN PLACE, CHECKED AT THIS TIME, AND ON FOR PT SAFETY, LLANES DRINING TO GRAVITY, NO ABNORMALITY NOTED OR CIRCULATION COMPROMISED, SAFETY MEASURES ENSURED IN PLACED, BED LOCKED AND LOW POSITION, SIDE RAILS UP X3 CALL LIGHT WITHIN REACH ,CONTINUE TO MONITOR .
--- NOTE | 2019-01-21 07:35 | NUR ---
RN NOTES DR DAVIS NOTIFIED REGARDING HR 40'S, AMIO GTT D/ED AT THIS TIME PER MD ORDER .CONTINUE TO MONITOR.
--- NOTE | 2019-01-21 07:40 | NUR ---
RT PATIENT REC'D ORALLY INTUBATED ON VENT IN ICU. PATIENT SEDATED, NON VERBAL, NON RESPONSIVE TO COMMANDS. VENT SETTINGS AND ALARMS CHECKED + AUDIBLE. CUFF PRESSURE CHECKED SANDWICH HAND. PATIENT SUCTIONED WITH SMALL AMT OF PALE SEMITHICK SECRETIONS. AMBU BAG AT HOB. CONT CURRENT PLAN OF CARE. Addendum: 01/21/19 at 1640 by MAYURI JIMÉNEZ RT Amended: Links added.
[2019-01-21] MEDS: DAKINS QUARTER STRENGTH (0.125%) 480 ML BOTTLE TOP SCH (08:30)
[2019-01-21] MEDS: HYDROGEL DRESSING 90 GM TUBE TP SCH (08:30)
[2019-01-21] MEDS: CLOTRIMAZOLE 1% 15 GM TUBE TP SCH ×2 (08:31→16:47)
--- NOTE | 2019-01-21 08:38 | NUR ---
PER DR. NICOLE ON HOLD. DR NICOLE IN COMMUNICATION WITH ORDERING DOCTOR EM
[2019-01-21] MEDS: LACTOBACILLUS RHAMNOSUS GG 1 EACH CAP.SPRINK PO SCH ×2 (08:44→16:46)
--- NOTE | 2019-01-21 09:27 | NUR ---
weaning mode initiated per dr salas orders. vent alarms checked + audible. andrzeju bag at hob Addendum: 01/21/19 at 1624 by MAYURI JIMÉNEZ RT Amended: Links added.
[2019-01-21] MEDS: methylPREDNISolone SOD SUCC 125 MG/2ML VIAL IV SCH (09:40)
--- NOTE | 2019-01-21 10:45 | NUR ---
RN NOTES PT IS OFF SEDATION , FOLLOWS SIMPLE COMMAND, ON SIMV MODE, VSS STABLE, STILL INTUBATED. CONTINUE TO MONITOR.
[2019-01-21 10:54] LABS: ABG BASE EXCESS -1.5 mmol/L; ABG OXYGEN SATURATION 96.1 % (92.0-98.5); ABG PCO2 31.1 mmHg (35.0-45.0); ABG PH 7.456 (7.350-7.450); ABG PO2 86.5 mmHg (75.0-100.0); AaDO2 162.9 mmHg; COHb 0.8 % (0.5-1.5); MetHb 0.5 % (0.0-1.5); O2Hb 94.9 % (94.0-97.0); SITE, ABG Left Brachial
[2019-01-21] MEDS: PANTOPRAZOLE 40 MG VIAL IV SCH (12:01)
--- NOTE | 2019-01-21 13:00 | NUR ---
RN NOTES PT STILL OFF SEDATION AND INTUBATED, VERY RESTLESS , PULLING ON RESTRAINS , VSS STABLE, CONTINUE TO MONITOR.
--- NOTE | 2019-01-21 14:30 | NUR ---
RN NOTES PT RESTARTED BACK ON SEDATION PER DR AMEZQUITA ORDER .
--- NOTE | 2019-01-21 15:40 | NUR ---
per dr salas patient placed back on ac mode. Addendum: 01/21/19 at 1624 by MAYURI JIMÉNEZ RT Amended: Links added.
[2019-01-21] MEDS: MICAFUNGIN SODIUM 100 MG in IV NS 0.9% 100 ML IV SCH (17:07)
--- NOTE | 2019-01-21 18:00 | NUR ---
RN NOTES VSS STABLE ,PT SEDATED ON PROPOFOL AT 25 MCG/KG/MIN, HR IN HIGH 50'S, VSS STABLE, SR UP x3, CALL LIGHT WITHIN EASY REACH, WILL ENDORSE TO BEHAVIORAL INSTRUCTOR NURSE FOR CONTINUITY OF CARE .
--- NOTE | 2019-01-21 20:00 | NUR ---
RN NOTES RECEIVED PATIENT ORALLY INTUBATED. WITH ETT 7 AND 24 CM @ LIP LINE SATURATION 100%. SINUS MARAL WITH FIRST DEGREE AVB WITH BBBB ON TELE MONITOR. NO ACUTE RESPIRATORY DISTRESS. PATIENT HAD EPISODE OF BITTING TUBES, BI BLOCK KEPT ON. IV SITE ON LFA G 20 WITH PROPOFOL @ 25 MCG/KG/MIN AND RFA, LH UNABLE TO FLUSHED.WILL CHECKED AND CHANGE LATER IF NEEDED. KEPT PT CLEAN AND DRY. OFFLOADED EXT WITH PILLOWS. PATIENT STILL WAITING FOR BED AT [facility]. WILL CONTINUE TO MONITOR.
[2019-01-21] MEDS: TAMSULOSIN 0.4 MG CAP.SR.24H PO SCH (22:00)
--- NOTE | 2019-01-21 22:12 | NUR ---
ELLA NOTES FLOMAX IS NOT ADMINISTERED PER PHARMACY DO NOT CRUSHED MEDS PATIENT HAD OGT. WILL FOLLOW UP FROM . Addendum: 01/22/19 at 0544 by DORIAN ARIZA RN NO OGT. NPO AT THIS TIME
[2019-01-22] VITALS (37 sets, daily range): BP systolic 95–119; BP diastolic 58–85
[2019-01-22] MEDS: PROPOFOL 100 ML IV PRN ×7 (02:42→17:35)
[2019-01-22 04:20] LABS: BASOPHILS % (AUTO) 0.1 % (0.0-2.0); HEMATOCRIT 37 % (39-51); HEMOGLOBIN 12.3 g/dL (13.5-17.5); LYMPHOCYTES # (AUTO) 0.5 /CMM (0.8-4.8); LYMPHOCYTES % (AUTO) 3.4 % (20.0-44.0); MEAN CORPUSCULAR HGB CONC 33 g/dl (31.0-36.0); MEAN CORPUSCULAR VOLUME 88 fL (80-96); MONOCYTES # (AUTO) 0.4 /CMM (0.1-1.30); MONOCYTES % (AUTO) 2.9 % (2.0-12.0); NEUTROPHILS # (AUTO) 14.1 /CMM (1.8-8.9); NEUTROPHILS % (AUTO) 93.6 % (43.0-81.0); PLATELET COUNT (AUTO) 150 /CMM (150-450); WHITE BLOOD COUNT (AUTO) 15.1 K/uL (4.3-11.0)
[2019-01-22 04:35] LABS: CALCIUM, SERUM 8.3 mg/dL (8.5-10.1); CREATININE 3.8 mg/dL (0.6-1.3); MAGNESIUM 2.5 mg/dL (1.8-2.4); PHOSPHORUS 6.2 mg/dL (2.5-4.9); POTASSIUM 3.7 mmol/L (3.5-5.1)
--- NOTE | 2019-01-22 05:00 | NUR ---
RN NOTES RECEIVED A CALL FROM LILLY JARAMILLO (TARGET SETTER) AT [facility] THAT PATIENT HAVE A ROOM NOW IN [facility] ROOM 7619, AND UPDATING PATIENT STATUS AND ASKED ABOUT ADDENDUM FOR D/C SUMMARY/HOSPITAL COMMUNICATION. AND FAX IT TO #[phone] AND HER PHONE # THEN PRESS OPT.2 THEN OPT.1 AND CHOOSE MED. BED CONTROL NURSE. ONCE ITS COMPLETED AND FAXED, ARRANGE TRANSPORT AND CALL THEM BEFORE THE TIME ARRIVAL. CHARGE NURSE MADE AWARE AND ADMIN SECRETARY.
[2019-01-22] MEDS: BLOOD SUGAR DIAGNOSTIC 1 EACH STRIP IN SCH ×3 (06:40→17:11)
[2019-01-22] MEDS: INSULIN REGULAR, HUMAN 100 UNIT/ML 3 ML VIAL SQ PRN ×3 (06:41→17:11)
--- NOTE | 2019-01-22 06:56 | NUR ---
RN NOTES PATIENT REMAINED STABLE WITH ETT AND VENT SETTING TOLERATED WELL. SEDATED WIT DIPRIVAN @ 20 MCG/KG/MIN TITRATED PROTOCOL ORDER. NO ACUTE RESPIRATORY DISTRESS. AFEBRILE THROUGHOUT THE SHIFT. VSS WITHOUT PRESSORS STARTED. 3 IV LINES ARE INTACT AND PATENT. LLANES CATH INTACT DRAINED VIA GRAVITY. SEEN AND EXAMINED BY DR. DAVIS AND INFORMED THAT [facility] CALLED THAT THERE'S A ROOM AVAILABLE NOW. PATIENT IS CLEAN AND DRY. WILL ENDORSED CONTINUITY OF CARE TO AM NURSE.
--- NOTE | 2019-01-22 07:05 | NUR ---
RN NOTES RECEIVED PATIENT ON BED, SEDATED, ORALLY INTUBATED. WITH ETT 7 AND 24 CM @ LIP LINE SATURATION 100%. SINUS MARAL WITH FIRST DEGREE AVB WITH BBB ON TELE MONITOR HR IN 50'S , NO DISTRESS NOTED, LF AND R HAND IV SITES ,CLEAN, DRY AND INTACT, PROPOFOL @ 20 MCG/KG/MIN RUNNING , PT HAS BED AT [facility],LEFT A MESSAGE FOR CM , KEPT PT CLEAN AND DRY. OFFLOADED EXT WITH PILLOWS. WILL CONTINUE TO MONITOR.
[2019-01-22] MEDS: methylPREDNISolone SOD SUCC 125 MG/2ML VIAL IV SCH (08:14)
[2019-01-22] MEDS: LACTOBACILLUS RHAMNOSUS GG 1 EACH CAP.SPRINK PO SCH ×2 (08:15→16:22)
[2019-01-22] MEDS: DAKINS QUARTER STRENGTH (0.125%) 480 ML BOTTLE TOP SCH (08:15)
[2019-01-22] MEDS: CLOTRIMAZOLE 1% 15 GM TUBE TP SCH ×2 (08:16→16:22)
[2019-01-22] MEDS: HYDROGEL DRESSING 90 GM TUBE TP SCH (08:16)
[2019-01-22] MEDS: PANTOPRAZOLE 40 MG VIAL IV SCH (12:00)
--- NOTE | 2019-01-22 12:39 | NUR ---
RN NOTES CALL RECEIVED FROM [facility], SPOKEN TO AMBREEN JARAMILLO . REPORT GIVEN TO AMBREEN AND ALSO AMBREEN NOTIFED THAT PT HAS LIFE [facility] THAT WILL GO WITH HIM TO [facility].
--- NOTE | 2019-01-22 13:58 | NUR ---
RN NOTES REPORT GIVEN TO NORMA JARAMILLO AT [facility] FOR CONTINUITY OF CARE .PT'S [facility] WILL BE PICKED UP BY THE [employer] TODAY FROM [facility] . Addendum: 01/22/19 at 1405 by CATHERINE MCADAMS RN [facility]
--- NOTE | 2019-01-22 15:05 | NUR ---
RN NOTES PT 'S BROTHER NOTIFED THAT PT IS TRANSFERRING TO [facility] .
[2019-01-22] MEDS: MICAFUNGIN SODIUM 100 MG in IV NS 0.9% 100 ML IV SCH (17:12)
--- NOTE | 2019-01-22 18:30 | NUR ---
RN NOTES PT LEFT THE FLOOR TO [facility] ACCOMPANIED BY ACLS TEAM , INTUBATED, PROPOFOL AT 25MCG/KG/MIN RUNNING ,VSS STABLE, LLANES INTACT, IV SITES CLEAN,DRY AND INTACT. LEFT A MESSAGE FOR [facility], PATIENT COORDINATOR, AT [phone] PER HER REQUEST THAT PT LEFT THE [facility] TO [facility] AT THIS TIME.
== END 2019-01-22 18:41 | disposition short-term general hospital (02) | DRG 710 ==
LOC: ER 19:52 → TELE-TD 01-07 00:05 → TELE1 01-07 11:57 → TELE-TD 01-08 09:24 → TELE1 01-11 10:06 → TELE-TD 01-13 14:33 → ICU 01-14 14:45
PROVIDERS: ADMIT Nurse Practitioner Acute Care; ATTEND Internal Medicine
PROC: 0JBQ0ZZ Excision of Right Foot Subcutaneous Tissue and Fascia, Open Approach (ICD-10-PCS; principal; 2019-01-07)
PROC: 0JB70ZZ Excision of Back Subcutaneous Tissue and Fascia, Open Approach (ICD-10-PCS; 2019-01-08)
PROC: 0KBS0ZZ Excision of Right Lower Leg Muscle, Open Approach (ICD-10-PCS; 2019-01-08)
PROC: 5A1D70Z Performance of Urinary Filtration, Intermittent, Less than 6 Hours Per Day (ICD-10-PCS; 2019-01-15)
PROC: 0BH17EZ Insertion of Endotracheal Airway into Trachea, Via Natural or Artificial Opening (ICD-10-PCS; 2019-01-17)
PROC: 5A1955Z Respiratory Ventilation, Greater than 96 Consecutive Hours (ICD-10-PCS; 2019-01-17)
DX: A41.9 Sepsis, unspecified organism (principal); N17.0 Acute kidney failure with tubular necrosis; J96.01 Acute respiratory failure with hypoxia; I46.9 Cardiac arrest, cause unspecified; G93.41 Metabolic encephalopathy; I47.2 Ventricular tachycardia; I50.43 Acute on chronic combined systolic (congestive) and diastolic (congestive) heart failure; R18.8 Other ascites; N18.3 Chronic kidney disease, stage 3 (moderate); L89.153 Pressure ulcer of sacral region, stage 3; J44.9 Chronic obstructive pulmonary disease, unspecified; L89.323 Pressure ulcer of left buttock, stage 3; L89.313 Pressure ulcer of right buttock, stage 3; E11.22 Type 2 diabetes mellitus with diabetic chronic kidney disease; D68.9 Coagulation defect, unspecified; E11.621 Type 2 diabetes mellitus with foot ulcer; I47.1 Supraventricular tachycardia; E11.622 Type 2 diabetes mellitus with other skin ulcer; I11.0 Hypertensive heart disease with heart failure; E11.9 Type 2 diabetes mellitus without complications; Z79.899 Other long term (current) drug therapy; L97.418 Non-pressure chronic ulcer of right heel and midfoot with other specified severity; D63.1 Anemia in chronic kidney disease; B37.49 Other urogenital candidiasis; E11.40 Type 2 diabetes mellitus with diabetic neuropathy, unspecified; E11.69 Type 2 diabetes mellitus with other specified complication; F03.90 Unspecified dementia, unspecified severity, without behavioral disturbance, psychotic disturbance, mood disturbance, and anxiety; I13.0 Hypertensive heart and chronic kidney disease with heart failure and stage 1 through stage 4 chronic kidney disease, or unspecified chronic kidney disease; I25.10 Atherosclerotic heart disease of native coronary artery without angina pectoris; E87.6 Hypokalemia; E87.1 Hypo-osmolality and hyponatremia; E83.51 Hypocalcemia; L03.115 Cellulitis of right lower limb; J98.11 Atelectasis; K74.60 Unspecified cirrhosis of liver; L30.4 Erythema intertrigo; L97.419 Non-pressure chronic ulcer of right heel and midfoot with unspecified severity; M86.9 Osteomyelitis, unspecified; I70.0 Atherosclerosis of aorta; Z99.2 Dependence on renal dialysis; Z86.73 Personal history of transient ischemic attack (TIA), and cerebral infarction without residual deficits; Z74.01 Bed confinement status; I67.2 Cerebral atherosclerosis; E78.5 Hyperlipidemia, unspecified; E11.51 Type 2 diabetes mellitus with diabetic peripheral angiopathy without gangrene; D69.6 Thrombocytopenia, unspecified; E83.39 Other disorders of phosphorus metabolism; L89.890 Pressure ulcer of other site, unstageable; E07.9 Disorder of thyroid, unspecified; I49.3 Ventricular premature depolarization
CPT/HCPCS: 31720; 36415; 36600; 70450-TC; 71045-TC; 73630-TC; 76770-TC; 80048-TC; 80053-TC; 80076-TC; 80202-TC; 81000-TC; 82140-TC; 82550-TC; 82570-TC; 82595; 82803-TC; 82962-TC; 83516; 83520; 83605-TC; 83735-TC; 83970; 84100-TC; 84155; 84155-TC; 84165; 84300-TC; 84439-TC; 84443-TC; 84478-TC; 84484-TC; 85025-TC; 85652-TC; 85730-TC; 86225; 86235; 86256; 86706; 86803; 87040-TC; 87081-TC; 87086-TC; 87340; 90935-TC; 92526; 92611-TC; 93307-TC; 94002-TC; 94003-TC; 94760-TC; 94799-TC; 97530-TC; A4216; A6248; A6253; A6403; C1750; C9113; G0378; G0480; J0282; J0330; J0515; J1630; J1815; J2060; J2185; J2248; J2370; J2543; J2930; J3370; J3480; J3490; J7030; J7040; J7042; J7050; J7060; P9047

== ENCOUNTER 2019-01-26 13:58 | Inpatient (IN) | payer OTHER ==
[~2019-01-26] VITALS: Ht 172.7 cm; Wt 101.6 kg
[~2019-01-26 13:58] MED LIST changes: -BUME1TAB8 PO; +CEFT2FRO2 IV; +FURO-145 PO; +LACT1CAP61 PO; -MELA3TAB63 PO; -METO25TA6 PO; +METO5TAB7 PO; +NUTR1PAC14 PO; +ONDA4TAB5 PO; +POTA10CA43 PO; +TAMS-12 PO; +ZINC220C8 PO
--- NOTE | 2019-01-26 19:45 | NUR ---
RECEIVED REPORT FROM SILVIO JARAMILLO FROM [facility] FOR CONTINUITY OF CARE. AWAITING PATIENT ARRIVAL.
[2019-01-27] VITALS (38 sets, daily range): BP systolic 101–159; BP diastolic 51–94
--- NOTE | 2019-01-27 00:40 | NUR ---
RECEIVED DIRECT ADMIT PATIENT FROM [facility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
--- NOTE | 2019-01-27 01:05 | NUR ---
RECEIVED PT DIRECT ADMIT FROM [facility]. PT IS INTUBATED 7.0 ETT SECURED AT 23CM AT THE LIP VIA ANCHOR FAST. VENT SETTINGS IS AC 12, 500, 40%, +5. VENT ALARMS SET AND AUDIBLE. CONTINUE [facility] VENT SUPPORT. Addendum: 01/27/19 at 0107 by SRIDEVI FLORES RT Amended: Links added.
--- NOTE | 2019-01-27 01:15 | NUR ---
SPOKE TO FAMILY SHAYAN (BROTHER) WHO WISHES TO WAIT TILL LATER TODAY (UNSPECIFIC TIME) TO PLACE PATIENT ON COMFORT MEASURES. HE WISHES TO HAVE SEVERAL FAMILY MEMBERS PRESENT. SHAYAN CONTINUES TO HAVE PATIENT DNR WHILE AT [facility]. WILL NOTIFY [employer] WITH WISHES FROM FAMILY MEMBER AND WILL ALSO NOTIFY DAY SHIFT STAFF OF FAMILIES WISHES.
[2019-01-27] MEDS ORDERED: ACETAMINOPHEN 325 MG TABLET PO PRN (02:00)
[2019-01-27] MEDS ORDERED: MAGNESIUM HYDROXIDE 30 ML UDC PO PRN (02:00)
[2019-01-27] MEDS ORDERED: NOREPINEPHRINE 8 MG in IV D5W 500 ML IV PRN (02:00)
[2019-01-27] MEDS ORDERED: MAG HYDROX/AL HYDROX/SIMETH 30 ML UDC PO PRN (02:00)
[2019-01-27] MEDS ORDERED: HYDROCODONE/APAP 5/325MG 1 EACH TABLET PO PRN (02:00)
[2019-01-27] MEDS: PROPOFOL 100 ML IV PRN ×2 (02:46→05:30)
--- NOTE | 2019-01-27 07:24 | NUR ---
Received patient bed bound, responsive to pain and tactile stimuli by opening eyes and moving left arm. Patient is intubated, connected to vent on AC mode with settings (AC 12, TV 500, Fi02 40%, and peep of 5) well tolerated. O2 sat 99%. Venkatesh @ 59, with BBB, and first degree AVB. Patient on propofol drip @ 10 mcg/kg/min (6.24 ml/hr.). On 2 points soft wrist restraints, with good circulation on both arms, pulses palpable, pink in color. Bed on lower position, locked, and with HOB elevated. Dr. Schwab came and examined patient, updated with plan of care. Awaiting family to decide on patient's comfort measures.
--- NOTE | 2019-01-27 08:11 | NUR ---
CBC, CMP, Phosphorus, Magnesium, chest x-ray, and EKG done as ordered by Dr. Schwab. BUN is 104 mg/dl but it was previously high. A hemodialysis patient.
[2019-01-27] MEDS ORDERED: CEFE1PIG3 IV (08:17)
[2019-01-27] MEDS ORDERED: PANT40VI IVP (08:17)
[2019-01-27] MEDS ORDERED: METR500P3 IV (08:17)
[2019-01-27] MEDS ORDERED: [UNRECOGNIZED DRUG - CODE] SQ (08:17)
[2019-01-27 08:33] LABS: BASOPHILS # (AUTO) 0.1 /CMM (0.0-0.2); BASOPHILS % (AUTO) 0.8 % (0.0-2.0); EOSINOPHILS % (AUTO) 4.7 % (0.0-6.0); HEMATOCRIT 35 % (39-51); HEMOGLOBIN 11.2 g/dL (13.5-17.5); LYMPHOCYTES # (AUTO) 0.7 /CMM (0.8-4.8); LYMPHOCYTES % (AUTO) 5.2 % (20.0-44.0); MEAN CORPUSCULAR HGB CONC 32 g/dl (31.0-36.0); MEAN CORPUSCULAR VOLUME 90 fL (80-96); MONOCYTES % (AUTO) 6.9 % (2.0-12.0); NEUTROPHILS # (AUTO) 11.6 /CMM (1.8-8.9); NEUTROPHILS % (AUTO) 82.4 % (43.0-81.0); PLATELET COUNT (AUTO) 174 /CMM (150-450); RED BLOOD CELL COUNT(AUTO) 3.87 MIL/uL (4.5-6.0)
[2019-01-27 08:41] LABS: CALCIUM, SERUM 7.7 mg/dL (8.5-10.1); CARBON DIOXIDE 27 mmol/L (21-32); CHLORIDE 103 mmol/L (98-107); GLUCOSE 101 mg/dL (74-106); POTASSIUM 3.6 mmol/L (3.5-5.1); SODIUM SERUM 137 mmol/L (136-145)
[2019-01-27 08:42] LABS: UREA NITROGEN, BLOOD 104 mg/dL (7-18)
--- NOTE | 2019-01-27 08:45 | NUR ---
DR. Haas seen and examined patient and ordered to perform sedation vacation from propofol drip.
[2019-01-27 08:46] LABS: ALANINE AMINOTRANSFERASE < 6 U/L (12-78); ALBUMIN 1.8 g/dL (3.4-5.0); ALKALINE PHOSPHATASE 164 U/L (46-116); ASPARTATE AMINOTRANSFERASE 18 U/L (15-37); BILIRUBIN,TOTAL 1.8 mg/dL (0.2-1.0); MAGNESIUM 2.8 mg/dL (1.8-2.4); PHOSPHORUS 5.8 mg/dL (2.5-4.9); TOTAL PROTEIN, SERUM 6.7 g/dL (6.4-8.2)
--- NOTE | 2019-01-27 09:20 | NUR ---
Propofol drip OFF for sedation vacation protocol, will turn ON per doctor's order and patient response and assessment.
[2019-01-27] MEDS ORDERED: FEE PK DOSING 1 MIN EA MC ONE (12:17)
[2019-01-27] MEDS: PIPERACILLIN /TAZOBACTAM 2.25 G in IV D5W 50 ML IV SCH ×2 (13:00→20:40)
[2019-01-27] MEDS ORDERED: VANCOMYCIN 1.25 GM in IV D5W 250 ML IV SCH (13:00)
[2019-01-27] MEDS: HYDROGEL DRESSING 90 GM TUBE TP SCH (13:59)
[2019-01-27 16:22] LABS: BILIRUBIN,URINE NEGATIVE (NEGATIVE); BLOOD, URINE SMALL Ery/uL (NEGATIVE); COLOR,URINE YELLOW (YELLOW); KETONES,URINE NEGATIVE (NEGATIVE); LEUKOCYTE ESTERASE ,URINE MODERATE (NEGATIVE); NITRITE, URINE NEGATIVE (NEGATIVE); PROTEIN,URINE 30 mg/dl (NEGATIVE); UGLUCOSE NEGATIVE (NEGATIVE); UROBILINOGEN,URINE 0.2 EU/dL (0.2)
[2019-01-27 16:24] LABS: APPEARANCE,URINE HAZY (CLEAR)
[2019-01-27 16:29] LABS: BACTERIA,URINE 2+ /HPF (None Seen); COARSE GRANULAR CASTS,URINE 0-2 /LPF (None Seen); SQUAMOUS EPITHELIAL CELL,UR Few /HPF (None Seen); WBC,URINE 51-80 /HPF (0-3); YEAST,URINE Few /HPF (None Seen)
[2019-01-27 16:30] LABS: URINE AMORPHOUS URATE Few /HPF (None Seen)
--- NOTE | 2019-01-27 18:49 | NUR ---
PM care done. Wounds' dressings changed. Remains vented on AC mode, well tolerated. No acute distress noted. Remains NPO, latest blood sugar 96 mg/dl. Bilateral wrists' Soft restraints intact, circulation intact, skin color normal. Patient brother (Sanjay) came and signed consent for wounds' debridement ximena. Comfort measures cancelled.
--- NOTE | 2019-01-27 19:20 | NUR ---
ICU NOTES RECEIVED PT W/ EYES OPEN TRACKS,DOES NOT FOLLOW COMMANDS.ON VENT VIA ORAL ET-TUBE FR #7 @23CM LIP LINE W/ FIO2 40%,A/C 12,TV 500 AND 5CM PEEP.SUCTIONED BY RT FOR SCANT AMOUNT WHITE SECRETIONS,MODERATE AMT. FROM MOUTH. ORAL CARE DONE.MOVES LOWER EXTREMITIES SPONTANEOUSLY BUT NOT TO COMMAND.
--- NOTE | 2019-01-27 21:00 | NUR ---
ICU NOTES MONITOR SHOWS SINUS VS.ACCELERATED JUNCTIONAL RHYTHM W/ RATE OF 74-100 TO A-FIB CONTROLLED RATE.CARDIZEM DRIP DECREASED TO 10MG/HR. Addendum: 01/27/19 at 2325 by MYA FOX RN ADDENDUM DISREGARD, WRONG PATIENT
--- NOTE | 2019-01-27 22:00 | NUR ---
ICU NOTES SUCTIONED FOR SMALL-MODERATE AMT. OF WHITE TO BEIGE SECRETIONS,ORAL CARE DONE.REPOSITIONED AND TURNED.
--- NOTE | 2019-01-27 23:00 | NUR ---
ICU NOTES HEART RATE 56-74/MINUTE,CARDIZEM DRIP DECREASED TO 7.5 MG/HR.GOES IN AND OUT OF A-FIB W/ OCCASIONAL PVC'S. Addendum: 01/27/19 at 2325 by MYA FOX RN DISREGARD, WRONG PATIENT
[2019-01-28] VITALS (24 sets, daily range): BP systolic 107–129; BP diastolic 63–90
[2019-01-28] MEDS: IV NS 0.9% 250 ML IV PRN (02:25)
--- NOTE | 2019-01-28 02:30 | NUR ---
ICU NOTES COMPLETE BED BATH GIVEN,WOUND CARE DONE,MEPILEX CHANGED.
[2019-01-28 04:19] LABS: BASOPHILS # (AUTO) 0.1 /CMM (0.0-0.2); BASOPHILS % (AUTO) 0.6 % (0.0-2.0); EOSINOPHILS % (AUTO) 3.5 % (0.0-6.0); HEMATOCRIT 35 % (39-51); HEMOGLOBIN 11.3 g/dL (13.5-17.5); LYMPHOCYTES # (AUTO) 0.7 /CMM (0.8-4.8); LYMPHOCYTES % (AUTO) 6.5 % (20.0-44.0); MEAN CORPUSCULAR HGB CONC 33 g/dl (31.0-36.0); MEAN CORPUSCULAR VOLUME 91 fL (80-96); MONOCYTES # (AUTO) 0.9 /CMM (0.1-1.30); MONOCYTES % (AUTO) 8.1 % (2.0-12.0); NEUTROPHILS # (AUTO) 9.2 /CMM (1.8-8.9); NEUTROPHILS % (AUTO) 81.3 % (43.0-81.0); PLATELET COUNT (AUTO) 201 /CMM (150-450); RED BLOOD CELL COUNT(AUTO) 3.81 MIL/uL (4.5-6.0); WHITE BLOOD COUNT (AUTO) 11.3 K/uL (4.3-11.0)
[2019-01-28] MEDS: PIPERACILLIN /TAZOBACTAM 2.25 G in IV D5W 50 ML IV SCH ×3 (04:38→21:08)
[2019-01-28 04:50] LABS: ALANINE AMINOTRANSFERASE < 6 U/L (12-78); ALBUMIN 1.9 g/dL (3.4-5.0); ALKALINE PHOSPHATASE 192 U/L (46-116); ASPARTATE AMINOTRANSFERASE 20 U/L (15-37); CALCIUM, SERUM 8.2 mg/dL (8.5-10.1); CARBON DIOXIDE 25 mmol/L (21-32); CHLORIDE 105 mmol/L (98-107); CREATININE 3.8 mg/dL (0.6-1.3); GLUCOSE 87 mg/dL (74-106); MAGNESIUM 2.9 mg/dL (1.8-2.4); PHOSPHORUS 5.3 mg/dL (2.5-4.9); POTASSIUM 3.5 mmol/L (3.5-5.1); SODIUM SERUM 140 mmol/L (136-145); TOTAL PROTEIN, SERUM 6.8 g/dL (6.4-8.2)
[2019-01-28 04:52] LABS: UREA NITROGEN, BLOOD 95 mg/dL (7-18)
--- NOTE | 2019-01-28 05:46 | NUR ---
ICU NOTES CONDITION UNCHANGED.MONITOR SHOWS SR W 1ST DEGREE AVB.BUCKING VENT.PT CHECKED,SUCTIONED FOR SCANT SECRETIONS.
--- NOTE | 2019-01-28 07:10 | NUR ---
ICU NOTES WILL ENDORSE TO DAY SHIFT FOR CATRACHITA.
--- NOTE | 2019-01-28 07:30 | NUR ---
DISPLAY DESIGNER INITIAL NOTE RECEIVED PATIENT AWAKE, ALERT TO SELF, FOLLOWS SIMPLE COMMANDS. NO S/S OF PAIN OR DISCOMFORT. NO RESPIRATORY DISTRESS NOTED. ETT IN PLACE, TOLERATING CURRENT VENT SETTINGS, WITH PLANS FOR WEANING. ON TELE MONITOR SR WITH FIRST DEGREE, BBB. BILATERAL WRIST RESTRAINTS IN PLACE, CIRCULATION CHECKED. F/C PATENT, INTACT, DRAINING BY GRAVITY. HOB ELEVATED. SIDE RAILS UP AND LOCKED. BED KEPT AT LOWEST POSITION. WILL CONTINUE TO MONITOR.
--- NOTE | 2019-01-28 07:59 | NUR ---
RT NOTE PT REC'D ON [facility] VENT ON AC MODE THEN PLACED ON SIMV PER MD ORDERS. PT IS STABLE WITH NO SIGNS OFF RESP. DISTRESS. WILL DRAW ABG IN ONE HOUR. ETT TUBE PATENT AND SECURE. BVM @ BEDSIDE. VENT ALARMS ON AND AUDIBLE. VENT PLUGGED IN RED OUTLET. WILL CONTINUE TO MONITOR. Addendum: 01/28/19 at 0802 by MATTHEW MCNAMARA RT Amended: Links added.
--- NOTE | 2019-01-28 08:02 | NUR ---
WOUND CARE CONSULT: PT FOLLOWED BY PLASTIC SURGERY AND PODIATRY TEAMS FOR WOUNDS. DEFER TO SURGICAL TEAMS FOR WOUND TREATMENT PLAN. WILL SEE PRN. DISCUSSED SKIN PROTECTION WITH NURSING STAFF. FIRST STEP LOW AIRLOSS MATTRESS ORDERED.
--- NOTE | 2019-01-28 08:30 | NUR ---
RETAIL LINK ANALYST NOTE RELAYED TO DR. AMEZQUITA ABG RESULT ON SIMV MODE. PER MD HE WILL SEE PATIENT LATER TODAY TO HAVE A DEFINITIVE DECISION.
[2019-01-28 09:15] LABS: ABG BASE EXCESS -3.9 mmol/L; ABG OXYGEN SATURATION 97.9 % (92.0-98.5); ABG PCO2 31.5 mmHg (35.0-45.0); ABG PH 7.416 (7.350-7.450); ABG PO2 118.9 mmHg (75.0-100.0); AaDO2 130.1 mmHg; COHb 0.8 % (0.5-1.5); MetHb 0.3 % (0.0-1.5); O2Hb 96.8 % (94.0-97.0); PEEP,BG 5 cm H2O; SITE, ABG Right Radial; VENT MODE, BG simv 4 ps12 40%+5
[2019-01-28] MEDS: HYDROGEL DRESSING 90 GM TUBE TP SCH (09:25)
--- NOTE | 2019-01-28 13:36 | NUR ---
ASSEMBLY AND PACKING SUPERVISOR NOTE S/P LEFT AND RIGHT BUTTOCK DEBRIDEMENT. BROTHER AWARE.
--- NOTE | 2019-01-28 15:34 | NUR ---
CODE STATUS CHANGE BROTHER SHAYAN AT BEDSIDE AND DR AMEZQUITA AT BEDSIDE. DISCUSSED POSSIBLE EXTUBATION TOMORROW WELL CHANGE OF CODE STATUS. BROTHER SHAYAN WISHES PATIENT TO BE FULL CODE. NOTED.
--- NOTE | 2019-01-28 16:00 | NUR ---
SALES ANALYST NOTE CLARIFIED WITH DR. AMEZQUITA REGARDING PATIENT NUTRITION STATUS. PATIENT WITHOUT OGT/NGT, OR IVF. PER DR. AMEZQUITA THERE IS PLAN FOR EXTUBATION TOMORROW. IF PATIENT DOES NOT SUCCEED, THEN OGT/NGT SHOULD BE PLACED.
--- NOTE | 2019-01-28 18:00 | NUR ---
INSTRUCTION LIBRARIAN NOTE NOTIFIED DR MCGRATH REGARDING DVT PROPHYLAXIS FOR PATIENT. WITH ORDERS FOR HEPARIN 5000UNITS SQ Q12H HOLD FOR PLATELET LESS THAN 100. NO DVT PUMPS DUE TO LEG WOUNDS.
--- NOTE | 2019-01-28 20:00 | NUR ---
SUPERINTENDENT LAUNDRY NOTE PT IN BED LETHARGIC, OPEN EYES AT TIME. NO DISTRESS OR DISCOMFORT NOTED. NO S/S OF PAIN NOTED. PT ON SIMV MODE. TOLERATING SETTINGS WELL. ON TELE SR WITH BBB AND 1ST DEGREE AV BLOCK HR 61. F/C INTACT AND PATENT DRAINING URINE WITH SEDIMENTS. WOUND DRESSING I/C/D. PT REMAIN NPO. RESTRAINT ON BILATERAL SOFT WRIST , SKIN AROUND WNL. REPOSITION HIM Q2H, KEPT HIM DRY AND CLEAN. ALL NEEDS ATTENDED. VSS. CONTINUE TO MONITOR.
[2019-01-28] MEDS: HEPARIN SODIUM, PORCINE 5000 UNITS/1 ML VIAL SQ SCH (21:08)
--- NOTE | 2019-01-28 21:33 | NUR ---
RECEIVED PT ON SIMV MODE, NO DISTRESS. PT TOLERATING VENT SETTINGS. ETT SECURE VIA ANCHOR FAST. VENT ALARMS SET AND AUDIBLE. WILL CONTINUE [facility] VENT SUPPORT. Addendum: 01/28/19 at 2134 by SRIDEVI FLORES RT Amended: Links added.
[2019-01-29] VITALS (25 sets, daily range): BP systolic 110–148; BP diastolic 55–95
[2019-01-29] MEDS: IV NS 0.9% 250 ML IV PRN (04:28)
[2019-01-29 04:29] LABS: BASOPHILS # (AUTO) 0.1 /CMM (0.0-0.2); BASOPHILS % (AUTO) 0.6 % (0.0-2.0); EOSINOPHILS % (AUTO) 3.3 % (0.0-6.0); HEMATOCRIT 37 % (39-51); HEMOGLOBIN 11.9 g/dL (13.5-17.5); LYMPHOCYTES # (AUTO) 0.8 /CMM (0.8-4.8); LYMPHOCYTES % (AUTO) 7.5 % (20.0-44.0); MEAN CORPUSCULAR HGB CONC 33 g/dl (31.0-36.0); MEAN CORPUSCULAR VOLUME 91 fL (80-96); MONOCYTES # (AUTO) 0.9 /CMM (0.1-1.30); NEUTROPHILS # (AUTO) 8.7 /CMM (1.8-8.9); NEUTROPHILS % (AUTO) 80.6 % (43.0-81.0); PLATELET COUNT (AUTO) 222 /CMM (150-450); RED BLOOD CELL COUNT(AUTO) 4.03 MIL/uL (4.5-6.0); WHITE BLOOD COUNT (AUTO) 10.7 K/uL (4.3-11.0)
[2019-01-29 04:43] LABS: ALANINE AMINOTRANSFERASE < 6 U/L (12-78); ALBUMIN 1.9 g/dL (3.4-5.0); ALKALINE PHOSPHATASE 221 U/L (46-116); ASPARTATE AMINOTRANSFERASE 22 U/L (15-37); BILIRUBIN,TOTAL 1.8 mg/dL (0.2-1.0); CALCIUM, SERUM 8.6 mg/dL (8.5-10.1); CARBON DIOXIDE 23 mmol/L (21-32); CHLORIDE 107 mmol/L (98-107); CREATININE 3.6 mg/dL (0.6-1.3); GLUCOSE 77 mg/dL (74-106); MAGNESIUM 2.8 mg/dL (1.8-2.4); POTASSIUM 3.5 mmol/L (3.5-5.1); SODIUM SERUM 142 mmol/L (136-145)
[2019-01-29 04:45] LABS: UREA NITROGEN, BLOOD 93 mg/dL (7-18)
--- NOTE | 2019-01-29 05:07 | NUR ---
PT TAKEN OFF MECH VENT AND PT PLACED ON COOL AEROSOL 10L, 40% PER DR AMEZQUITA. PT IS AWAKE AND FOLLOWS COMMANDS. BS DIMINISHED BILAT. SX'D FOR SML AMT OF THICK WHITE SECRETIONS. WILL CONTINUE TO MONITOR.
[2019-01-29] MEDS: PIPERACILLIN /TAZOBACTAM 2.25 G in IV D5W 50 ML IV SCH ×3 (05:22→21:00)
--- NOTE | 2019-01-29 06:48 | NUR ---
MANAGER GYN NOTE PT ON COOL AEROSOL 10 L FIO2 40 % O2 SAT 96% TOLERATING WELL. NO DISTRESS OR DISCOMFORT NOTED. NO S/S OF PAIN NOTED. PT IS MORE ALERT NOW. REMAIN ON BILATERAL SOFT WRIST RESTRAINTS.ON TELE MONITOR SR WITH BBB AND 1ST DEGREE AV BLOCK HR 64. F/C INTACT AND PATENT DRAINING YELLOWISH COLOR URINE WITH SEDIMENTS. REPOSITION HIM Q2H, KEPT HIM DRY AND CLEAN. ALL NEEDS ATTENDED. WILL ENDORSE TO DAY SHIFT NURSE FOR CONTINUE TO CARE.
--- NOTE | 2019-01-29 07:23 | NUR ---
FIO2 TITRATE DOWN TO 28%. SPO2 98% ON POST CHANGED. Addendum: 01/29/19 at 0723 by OMAR MORA RT Amended: Links added.
--- NOTE | 2019-01-29 08:00 | NUR ---
ICU/RN INITIAL NOTES,AM RECEIVED BEDSIDE REPORT FROM NIGHT NURSE. PT ALERT, FOLLOWS SIMPLE COMMANDS. PT ON COOL AEROSOL 10 LITERS, 40%. POSSIBLE EXTUBATION TODAY. PT SINUS ON TELE WITH BBB AND 1DEGREE AV BLOCK. LLANES CATH IN PLACE, DRAINING CLOUDY URINE. PT CURRENTLY NPO. PIV'S PATENT AND INTACT, NO S/S OF INFECTION OR INFILTRATION NOTED. RIGHT FEMORAL HD CATH IN PLACE. BILATERAL WRIST RESTRAINTS IN PLACE, ASSESSED PER PROTOCOL. ALL NEEDS WILL BE ATTENDED TO, SAFETY MEASURES TAKEN, BED IN LOW POSITION, SIDE RAILS UP, CALL LIGHT WITHIN REACH.
[2019-01-29 08:24] LABS: ABG BASE EXCESS -3.9 mmol/L; ABG OXYGEN SATURATION 95.2 % (92.0-98.5); ABG PCO2 37.4 mmHg (35.0-45.0); ABG PH 7.366 (7.350-7.450); ABG PO2 75.3 mmHg (75.0-100.0); AaDO2 80.2 mmHg; COHb 1.1 % (0.5-1.5); MetHb 0.3 % (0.0-1.5); O2Hb 93.9 % (94.0-97.0); SITE, ABG Right Radial; VENT MODE, BG cool aerosol @ 28% fio2
[2019-01-29] MEDS: HEPARIN SODIUM, PORCINE 5000 UNITS/1 ML VIAL SQ SCH ×2 (08:24→21:00)
[2019-01-29] MEDS: HYDROGEL DRESSING 90 GM TUBE TP SCH (08:25)
--- NOTE | 2019-01-29 17:34 | NUR ---
increased fio2 from 28% to 40% due to 92% spo2 Addendum: 01/29/19 at 1735 by OMAR MORA RT Amended: Links added.
--- NOTE | 2019-01-29 19:20 | NUR ---
ICU/RN: ENDING NOTES,AM BEDSIDE REPORT ENDORSED TO NIGHT NURSE FOR CATRACHITA. PT ALERT, LETHARGIC, FOLLOWS SOME SIMPLE COMMANDS. CURRENTLY ON HD. PT INTUBATE, ON COOL AEROSOL. PT SCHEDULED FOR LP IN AM, CONSENT IN CHART. ENDORSED TO NIGHT NURSE TO HOLD HEPARIN PER MD. NG TUBE INSERTED, XRAY PLACEMENT CONFIRMED. WILL START TUBE FEEDING PER MD ORDER. BILATERAL WRIST RESTRAINTS IN PLACE, ASSESSED PER PROTOCOL. ALL NEEDS ATTENDED TO, SAFETY MEASURES TAKEN, BED IN LOW POSITION, SIDE RAILS UP, CALL LIGHT WITHIN REACH. WILL CONTINUE CARE
--- NOTE | 2019-01-29 19:29 | NUR ---
PT RCVD ORALLY INTUBATED ON CA 40% 10 L. SX DONE . NO RESPIRATORY DISTRESS NOTED AT THIS TIME. WILL CONTINUE TO MONITOR T/O SHIFT.
--- NOTE | 2019-01-29 19:30 | NUR ---
Received patient awake follows simple command.SR per monitor with 1st degree AVB/BBB. Hemodynamically stable. ETT to cool aerosol 40% well tolerated.Moderate secretions suctioned PRN.Left Nares NGT in place verified by aspiration and auscultation.To start tube feeding per order.HD in progress.FC to gravity.NO distress noted.Continue monitoring.
--- NOTE | 2019-01-29 20:30 | NUR ---
Patient resting in no distress.HD finished 1200 ml out.Vanco post HD not given.Vanco trough level 22 this morning.
[2019-01-29] MEDS: NEPRO 1,000 ML BOTTLE GT PRN (21:01)
[2019-01-29] MEDS: VANCOMYCIN 500 MG in IV D5W 100 ML IV PRN (21:17)
[2019-01-30] VITALS (34 sets, daily range): BP systolic 92–127; BP diastolic 34–79
--- NOTE | 2019-01-30 | NUR ---
Resting vs stable.GT feeding well tolerated.Turned and repositioned.
[2019-01-30 04:50] LABS: BASOPHILS # (AUTO) 0.1 /CMM (0.0-0.2); BASOPHILS % (AUTO) 0.6 % (0.0-2.0); EOSINOPHILS % (AUTO) 2.5 % (0.0-6.0); HEMATOCRIT 36 % (39-51); HEMOGLOBIN 11.7 g/dL (13.5-17.5); LYMPHOCYTES # (AUTO) 0.8 /CMM (0.8-4.8); LYMPHOCYTES % (AUTO) 6.1 % (20.0-44.0); MEAN CORPUSCULAR HGB CONC 33 g/dl (31.0-36.0); MEAN CORPUSCULAR VOLUME 91 fL (80-96); MONOCYTES % (AUTO) 7.3 % (2.0-12.0); NEUTROPHILS % (AUTO) 83.5 % (43.0-81.0); PLATELET COUNT (AUTO) 195 /CMM (150-450); RED BLOOD CELL COUNT(AUTO) 3.91 MIL/uL (4.5-6.0); WHITE BLOOD COUNT (AUTO) 13.2 K/uL (4.3-11.0)
[2019-01-30] MEDS: IV NS 0.9% 250 ML IV PRN (04:51)
[2019-01-30] MEDS: PIPERACILLIN /TAZOBACTAM 2.25 G in IV D5W 50 ML IV SCH ×3 (04:51→21:04)
--- NOTE | 2019-01-30 05:00 | NUR ---
Patient with BM small amount.Perineal care and bed bath rendered.Complete linens changed. Turned and repositioned.Wound care done with dressing changed.Oral care done, secretions suctioned.Kept comfortable.For LP today with consent signed.Will endorse to day shift for howard.
[2019-01-30 05:14] LABS: CALCIUM, SERUM 8.4 mg/dL (8.5-10.1); MAGNESIUM 2.7 mg/dL (1.8-2.4); PHOSPHORUS 3.8 mg/dL (2.5-4.9); POTASSIUM 3.6 mmol/L (3.5-5.1)
--- NOTE | 2019-01-30 07:48 | NUR ---
ICU/RN INITIAL NOTES,AM RECEIVED BEDSIDE REPORT FROM NIGHT NURSE. PT ALERT, FOLLOWS SIMPLE COMMANDS. PT ON COOL AEROSOL 10 LITERS, 40%. PT WILL BE EVALUATED FOR EXTUBATION TODAY. PT SCHEDULED FOR LP THIS AM, CONSENT IN CHART. PT SINUS ON TELE WITH BBB AND 1DEGREE AV BLOCK. LLANES CATH IN PLACE, DRAINING CLOUDY URINE. LEFT NARE NG TUBE IN PLACE, PLACEMENT VERIFIED VIA AUSCULTATION AND XRAY. PIV'S PATENT AND INTACT, NO S/S OF INFECTION OR INFILTRATION NOTED. RIGHT FEMORAL HD CATH IN PLACE. BILATERAL WRIST RESTRAINTS IN PLACE, ASSESSED PER PROTOCOL. ALL NEEDS WILL BE ATTENDED TO, SAFETY MEASURES TAKEN, BED IN LOW POSITION, SIDE RAILS UP, CALL LIGHT WITHIN REACH.
[2019-01-30] MEDS: HEPARIN SODIUM, PORCINE 5000 UNITS/1 ML VIAL SQ SCH ×2 (09:00→21:06)
[2019-01-30] MEDS: HYDROGEL DRESSING 90 GM TUBE TP SCH (09:01)
--- NOTE | 2019-01-30 09:50 | NUR ---
ICU/RN: PT TRANSPORTED TO RADIOLOGY FOR LP. CONSENT IN CHART. HEPARIN HELD IN AM AND LAST NIGHT. PT TRANSPORTED PER ACLS GUIDELINES. WILL CONTINUE TO MONITOR. RT AT BEDSIDE.
--- NOTE | 2019-01-30 11:00 | NUR ---
ICU/RN: LP COMPLETE. PT TRANSFERRED BACK TO ICU WITH ACLS GUIDELINES. VSS. BROTHER AT BEDSIDE. UPDATES GIVEN. PER MD WE ARE TO KEEP PT SUPINE FOR 6 HOURS. TUBE FEEDING WILL BE HELD FOR 6 HOURS TILL ABLE TO ELEVATE HOB. WILL CONTINUE TO MONITOR.
[2019-01-30] MEDS: MORPHINE SULFATE INJ 2 MG/ML DISP.SYRIN IV PRN (11:29)
[2019-01-30 11:34] LABS: CSF GLUCOSE 83 mg/dL (40-70); CSF PROTEIN 56.5 mg/dL (15-45)
--- NOTE | 2019-01-30 16:18 | NUR ---
ICU/RN: PER MD PT IS TO STAY SUPINE 6 HOURS POST LP. WILL TURN AND REPOSITION, PT AT 1700, WILL ALSO RESTART FEEDING AT 1700.
--- NOTE | 2019-01-30 18:53 | NUR ---
ICU/RN: ENDING NOTES,AM BEDSIDE REPORT WILL BE ENDORSED TO NIGHT NURSE FOR CATRACHITA. PT ALERT, LETHARGIC. PT INTUBATED, ON COOL AEROSOL. LP DONE IN AM. NG TUBE FEEDING RESTARTED, TOLERATING WELL. BILATERAL WRIST RESTRAINTS IN PLACE, ASSESSED PER PROTOCOL. ALL NEEDS ATTENDED TO, SAFETY MEASURES TAKEN, BED IN LOW POSITION, SIDE RAILS UP, CALL LIGHT WITHIN REACH. WILL CONTINUE CARE
--- NOTE | 2019-01-30 19:30 | NUR ---
Received patient lethargic intubated to cool aerosol FIO2 40% well tolerated.SPO2 97%.SR with 1st degree AVB with BBB. Hemodynamically stable.No acute distress noted.Gt feeding in progress no residual noted.HOB elevated.FC to gravity drainage.Safety measures maintained.Bed in low,locked pos.Secretions suctioned PRN.
--- NOTE | 2019-01-30 20:16 | NUR ---
Found on ETT 7.0 @ 24Cm LIP Addendum: 01/30/19 at 2018 by LEVY BALTAZAR RT Amended: Links added.
[2019-01-31] VITALS (46 sets, daily range): BP systolic 91–140; BP diastolic 54–115
--- NOTE | 2019-01-31 | NUR ---
Patient resting VS remains stable.Hemodynamically stable.Secretions suctioned.Turned and repositioned.No distress noted.
[2019-01-31] MEDS: PIPERACILLIN /TAZOBACTAM 2.25 G in IV D5W 50 ML IV SCH ×3 (04:30→21:01)
[2019-01-31 04:50] LABS: CALCIUM, SERUM 8.7 mg/dL (8.5-10.1); CREATININE 3.2 mg/dL (0.6-1.3); MAGNESIUM 2.7 mg/dL (1.8-2.4); PHOSPHORUS 3.6 mg/dL (2.5-4.9); POTASSIUM 3.6 mmol/L (3.5-5.1)
[2019-01-31 05:03] LABS: BASOPHILS # (AUTO) 0.1 /CMM (0.0-0.2); BASOPHILS % (AUTO) 0.6 % (0.0-2.0); EOSINOPHILS % (AUTO) 2.9 % (0.0-6.0); HEMATOCRIT 35 % (39-51); HEMOGLOBIN 11.3 g/dL (13.5-17.5); LYMPHOCYTES % (AUTO) 7.6 % (20.0-44.0); MEAN CORPUSCULAR HGB CONC 32 g/dl (31.0-36.0); MEAN CORPUSCULAR VOLUME 91 fL (80-96); MONOCYTES # (AUTO) 1.2 /CMM (0.1-1.30); MONOCYTES % (AUTO) 9.4 % (2.0-12.0); NEUTROPHILS # (AUTO) 10.4 /CMM (1.8-8.9); NEUTROPHILS % (AUTO) 79.5 % (43.0-81.0); PLATELET COUNT (AUTO) 203 /CMM (150-450); RED BLOOD CELL COUNT(AUTO) 3.88 MIL/uL (4.5-6.0); WHITE BLOOD COUNT (AUTO) 13.1 K/uL (4.3-11.0)
--- NOTE | 2019-01-31 06:30 | NUR ---
No significant change noted during the shift on patient status.AM care done.Wound care done. VS stable.Hemodynamically stable.Tolerating NGT feeding.Turned and repositioned q 2 hrs. Tolerating cool aerosol via ETT.Possible extubation today.Will endorse to day shift for howard.
--- NOTE | 2019-01-31 06:46 | NUR ---
RT PT REMAINED STABLE ON SHIFT. NO SOB OR DISTRESS NOTED ON SHIFT. CONTINUE CURRENT CARE PLAN AND MONITOR FOR ANY CHANGES. Addendum: 01/31/19 at 0647 by LEVY BALTAZAR RT Amended: Links added.
--- NOTE | 2019-01-31 07:10 | NUR ---
COYOTE HUNTER INITIAL NOTES Rec'd pt in bed, not in any distress, A/O x 1. On C/A via ETT w/ FiO2 40%. SR on telemonitor. Has NGT (Liz ovalle) on GTF Nepro x 30 cc/hr infusing well, no gastric residual noted upon checking. Has FC draining to BSB w/ yellowish UOP. Has IV line access - LFA G20, RFA G22, RH G20, all flushing well, no s/sx of infection/infiltration noted. Has R femoral HD cath in place. Has B soft wrist restraints in place for pt's safety. Safety precaution in place w/ bed in lowest & locked pos. Call light w/in reach. Will cont to monitor & attend pt needs. Addendum: 01/31/19 at 1242 by ANNE MARIE FELIX RN Correction: Yulia ovalle
[2019-01-31 08:36] LABS: ABG BASE EXCESS -1.6 mmol/L; ABG OXYGEN SATURATION 94.2 % (92.0-98.5); ABG PCO2 39.4 mmHg (35.0-45.0); ABG PH 7.387 (7.350-7.450); ABG PO2 71.9 mmHg (75.0-100.0); COHb 0.7 % (0.5-1.5); MetHb 0.4 % (0.0-1.5); O2Hb 93.2 % (94.0-97.0); SITE, ABG Right Radial; VENT MODE, BG CA
[2019-01-31] MEDS: HYDROGEL DRESSING 90 GM TUBE TP SCH (08:58)
[2019-01-31] MEDS: HEPARIN SODIUM, PORCINE 5000 UNITS/1 ML VIAL SQ SCH ×2 (08:58→21:02)
[2019-01-31] MEDS: Z GUARD REMEDY 2 OZ OINT TP PRN (08:59)
--- NOTE | 2019-01-31 12:20 | NUR ---
Pt seen & examined by Dr. Haas, updated about pt status.
--- NOTE | 2019-01-31 19:14 | NUR ---
SECURITY OPERATIONS CENTER OPERATOR CLOSING NOTES Pt resting comfortably on his bed, not in any distress. Tolerated C/A setting via ETT. Secretion suctioned. SR on telemonitor. L NGT kept patent 7& intact w/ GTF Nepro x 30 cc/hr infusing well, no gastric residual noted upon checking. FC draining to BSB w/ yellowish UOP, FC changed as ordered. IV line access - LFA G20, RFA G22, RH G20, all flushing well, kept patent & intact w/ no s/sx of infection/infiltration noted. R femoral HD cath kept in place w/ C/D/I dressing. B soft wrist restraints kept in place for pt's safety. Safety precaution kept in place w/ bed in lowest & locked pos. Call light w/in reach. Endorsed to PM RN for CATRACHITA.
--- NOTE | 2019-01-31 19:30 | NUR ---
RN NOTE: RECEIVED PT ON BED AWAKE WITH NO APPARENT DISTRESS NOTED. NO FACIAL GRIMACING OR ANY SIGNS OF PAIN NOTED. ON COOL AEROSOL, NO SOB NOTED. SATURATING WELL. ON TELE MONITOR SINUS RHYTHM HR 76 BPM. LEFT NGT INTACT AND IN PLACED WITH GTF NEPRO RUNNING AT 30ML/HR, NO RESIDUAL NOTED AT THIS TIME. LLANES CATH INTACT AND DRAINING WELL. IV ON RIGHT FOREARM #22, RIGHT HAND #20 AND LEFT FOREARM #20 INTACT AND FLUSHING WELL. ON BILATERAL SOFT WRIST RESTRAINTS FOR SAFETY. KEPT CLEAN, DRY AND COMFORTABLE. SAFETY AND FALL PRECAUTIONS OBSERVED AND MAINTAINED. WILL CONTINUE TO MONITOR PT.
--- NOTE | 2019-01-31 19:51 | NUR ---
RT Pt is orally intubated with a 7.0 ET tube secured at 24cm at the lip line. Pt is awake and responds to stimuli when suctioned. PT is on T-Piece tolerating well, no SOB or respiratory idstress noted. Addendum: 02/01/19 at 0316 by JOSE BERGER RT Amended: Links added.
[2019-01-31] MEDS: NEPRO 1,000 ML BOTTLE GT PRN (22:14)
[2019-02-01] VITALS (25 sets, daily range): BP systolic 117–150; BP diastolic 58–90
[2019-02-01 05:05] LABS: BASOPHILS # (AUTO) 0.1 /CMM (0.0-0.2); BASOPHILS % (AUTO) 0.9 % (0.0-2.0); EOSINOPHILS % (AUTO) 2.3 % (0.0-6.0); HEMATOCRIT 34 % (39-51); LYMPHOCYTES % (AUTO) 7.8 % (20.0-44.0); MEAN CORPUSCULAR HGB CONC 33 g/dl (31.0-36.0); MEAN CORPUSCULAR VOLUME 91 fL (80-96); MONOCYTES # (AUTO) 1.2 /CMM (0.1-1.30); MONOCYTES % (AUTO) 9.2 % (2.0-12.0); NEUTROPHILS # (AUTO) 10.5 /CMM (1.8-8.9); NEUTROPHILS % (AUTO) 79.8 % (43.0-81.0); PLATELET COUNT (AUTO) 149 /CMM (150-450); RED BLOOD CELL COUNT(AUTO) 3.68 MIL/uL (4.5-6.0); WHITE BLOOD COUNT (AUTO) 13.2 K/uL (4.3-11.0)
[2019-02-01] MEDS: PIPERACILLIN /TAZOBACTAM 2.25 G in IV D5W 50 ML IV SCH ×3 (05:11→21:09)
[2019-02-01 05:28] LABS: CALCIUM, SERUM 8.9 mg/dL (8.5-10.1); CREATININE 2.8 mg/dL (0.6-1.3); MAGNESIUM 2.7 mg/dL (1.8-2.4); PHOSPHORUS 2.9 mg/dL (2.5-4.9); POTASSIUM 3.4 mmol/L (3.5-5.1)
--- NOTE | 2019-02-01 05:36 | NUR ---
RN NOTE: PT NOTED TO HAVE SOME EPISODES OF NON SUSTAINED VTACH. DR. DOLL MADE AWARE WITH NO NEW ORDERS. WILL CONTINUE TO MONITOR PT.
--- NOTE | 2019-02-01 07:28 | NUR ---
RN NOTE: NO CHANGES NOTED THROUGHOUT THE SHIFT. NO APPARENT DISTRESS NOTED. NO FACIAL GRIMACING OR ANY SIGNS OF PAIN NOTED. ON COOL AEROSOL, NO SOB NOTED. LEFT NGT INTACT AND PATENT, ABLE TO TOLERATE FEEDING WELL. LLANES CATH INTACT, DRAINED 230ML OF URINE OUTPUT. KEPT CLEAN, DRY AND COMFORTABLE. SAFETY AND FALL PRECAUTIONS OBSERVED AND MAINTAINED. ENDORSED TO DAY SHIFT RN FOR CONTINUITY OF CARE.
[2019-02-01] MEDS: HYDROGEL DRESSING 90 GM TUBE TP SCH (08:25)
[2019-02-01] MEDS: HEPARIN SODIUM, PORCINE 5000 UNITS/1 ML VIAL SQ SCH ×2 (08:25→21:10)
[2019-02-01] MEDS: VANCOMYCIN 500 MG in IV D5W 100 ML IV PRN (08:28)
--- NOTE | 2019-02-01 11:10 | NUR ---
Notified Doug CHANG re: review pt's home meds per pharmacy.
[2019-02-01] MEDS: FLUCONAZOLE IN NS,PREMIX 200 MG in PREMIX 1 EA IV SCH ×2 (16:29)
--- NOTE | 2019-02-01 18:35 | NUR ---
MED PEDS CLOSING NOTES Pt resting comfortably on his bed, not in any distress. Tolerated C/A setting via ETT. Secretion suctioned. SR on telemonitor. L NGT kept patent & intact w/ GTF Nepro x 30 cc/hr infusing well, no gastric residual noted w/in shift. FC draining to BSB w/ grupo UOP. IV line access - LFA G20, RFA G22, RH G20, all flushing well, kept patent & intact w/ no s/sx of infection/infiltration noted. R femoral HD cath kept in place w/ C/D/I dressing. B soft wrist restraints kept on for pt's safety. Safety precaution kept in place w/ bed in lowest & locked pos at all times. Call light w/in reach. Will endorse to PM RN for CATRACHITA.
[2019-02-01] MEDS: MORPHINE SULFATE INJ 2 MG/ML DISP.SYRIN IV PRN (21:12)
[2019-02-02] VITALS (32 sets, daily range): BP systolic 97–133; BP diastolic 57–88
[2019-02-02 04:28] LABS: BASOPHILS # (AUTO) 0.2 /CMM (0.0-0.2); BASOPHILS % (AUTO) 1.1 % (0.0-2.0); EOSINOPHILS % (AUTO) 1.1 % (0.0-6.0); HEMATOCRIT 37 % (39-51); HEMOGLOBIN 11.8 g/dL (13.5-17.5); LYMPHOCYTES # (AUTO) 0.7 /CMM (0.8-4.8); MEAN CORPUSCULAR HGB CONC 33 g/dl (31.0-36.0); MEAN CORPUSCULAR VOLUME 92 fL (80-96); MONOCYTES # (AUTO) 1.1 /CMM (0.1-1.30); MONOCYTES % (AUTO) 6.6 % (2.0-12.0); NEUTROPHILS # (AUTO) 14.9 /CMM (1.8-8.9); NEUTROPHILS % (AUTO) 87.2 % (43.0-81.0); PLATELET COUNT (AUTO) 151 /CMM (150-450); RED BLOOD CELL COUNT(AUTO) 3.99 MIL/uL (4.5-6.0); WHITE BLOOD COUNT (AUTO) 17.1 K/uL (4.3-11.0)
[2019-02-02 05:05] LABS: CALCIUM, SERUM 8.9 mg/dL (8.5-10.1); CREATININE 3.1 mg/dL (0.6-1.3); MAGNESIUM 2.7 mg/dL (1.8-2.4); POTASSIUM 3.5 mmol/L (3.5-5.1)
[2019-02-02] MEDS: PIPERACILLIN /TAZOBACTAM 2.25 G in IV D5W 50 ML IV SCH ×2 (05:16→13:07)
--- NOTE | 2019-02-02 07:12 | NUR ---
BILLING ADMINISTRATOR INITIAL NOTES Rec'd pt in bed, not in any distress, A/O x 1. On C/A via ETT w/ FiO2 40%. SR on telemonitor. Has NGT (L nare) on GTF Nepro x 30 cc/hr infusing well, no gastric residual noted upon checking. Has FC draining to BSB w/ yellowish UOP. Has IV line access - LFA G20, RFA G22, RH G20, all flushing well, no s/sx of infection/infiltration noted. Has R femoral HD cath in place. Has B soft wrist restraints in place for pt's safety. Safety precaution in place w/ bed in lowest & locked pos. Call light w/in reach. Will cont to monitor & attend pt needs.
[2019-02-02] MEDS: HEPARIN SODIUM, PORCINE 5000 UNITS/1 ML VIAL SQ SCH ×2 (08:45→21:25)
[2019-02-02] MEDS: HYDROGEL DRESSING 90 GM TUBE TP SCH (08:46)
[2019-02-02] MEDS: Z GUARD REMEDY 2 OZ OINT TP PRN (08:46)
--- NOTE | 2019-02-02 09:00 | NUR ---
Dr. Sandhu made aware that pt having abdominal breathing. MD seen & examined pt w/ orders to do ABG & CXR.
[2019-02-02 09:11] LABS: ABG OXYGEN SATURATION 95.4 % (92.0-98.5); ABG PCO2 45.5 mmHg (35.0-45.0); ABG PH 7.382 (7.350-7.450); ABG PO2 81.1 mmHg (75.0-100.0); AaDO2 151.8 mmHg; COHb 0.6 % (0.5-1.5); MetHb 0.5 % (0.0-1.5); O2Hb 94.4 % (94.0-97.0); SITE, ABG Left Radial
[2019-02-02] MEDS: VANCOMYCIN 500 MG in IV D5W 100 ML IV PRN (14:11)
[2019-02-02] MEDS: FLUCONAZOLE IN NS,PREMIX 200 MG in PREMIX 1 EA IV SCH ×2 (15:19)
[2019-02-02] MEDS ORDERED: FEE PK DOSING 1 MIN EA MC ONE (16:47)
[2019-02-02] MEDS ORDERED: NS 0.9% IV ONE (18:00)
[2019-02-02] MEDS ORDERED: METRONIDAZOLE 500MG/ NS 100ML 250 MG in PREMIX 1 EA IV SCH (18:00)
[2019-02-02] MEDS ORDERED: GENTAMICIN IV ONE (18:00)
[2019-02-02] MEDS: METRONIDAZOLE 500MG/ NS 100ML 500 MG in PREMIX 1 EA IV SCH (18:02)
--- NOTE | 2019-02-02 18:46 | NUR ---
MICROBIOLOGY LAB TECHNICIAN CLOSING NOTES Pt resting comfortably on his bed, not in any distress, A/O x1 but drowsy. Tolerated C/A setting via ETT. Secretion suctioned. SR on telemonitor. L NGT kept patent & intact w/ GTF Nepro x 30 cc/hr infusing well, no gastric residual noted w/in shift. FC draining to BSB w/ grupo UOP. IV line access - LFA G20, LH G20, RH G20, all flushing well, kept patent & intact w/ no s/sx of infection/infiltration noted. R femoral HD cath kept in place w/ C/D/I dressing - s/p HD today w/ no UF. B soft wrist restraints kept on for pt's safety. Safety precaution kept in place w/ bed in lowest & locked pos at all times. Call light w/in reach. Will endorse to PM RN for CATRACHITA.
[2019-02-03] VITALS (25 sets, daily range): BP systolic 94–131; BP diastolic 57–90
[2019-02-03] MEDS: METRONIDAZOLE 500MG/ NS 100ML 500 MG in PREMIX 1 EA IV SCH ×4 (00:07→17:32)
[2019-02-03 05:10] LABS: BASOPHILS # (AUTO) 0.2 /CMM (0.0-0.2); BASOPHILS % (AUTO) 0.9 % (0.0-2.0); EOSINOPHILS % (AUTO) 0.9 % (0.0-6.0); HEMATOCRIT 37 % (39-51); HEMOGLOBIN 11.6 g/dL (13.5-17.5); LYMPHOCYTES # (AUTO) 0.8 /CMM (0.8-4.8); MEAN CORPUSCULAR HGB CONC 32 g/dl (31.0-36.0); MEAN CORPUSCULAR VOLUME 92 fL (80-96); MONOCYTES % (AUTO) 4.9 % (2.0-12.0); NEUTROPHILS # (AUTO) 18.5 /CMM (1.8-8.9); NEUTROPHILS % (AUTO) 89.3 % (43.0-81.0); PLATELET COUNT (AUTO) 115 /CMM (150-450); WHITE BLOOD COUNT (AUTO) 20.7 K/uL (4.3-11.0)
[2019-02-03 05:23] LABS: CALCIUM, SERUM 8.5 mg/dL (8.5-10.1); CREATININE 2.8 mg/dL (0.6-1.3); MAGNESIUM 2.3 mg/dL (1.8-2.4); PHOSPHORUS 2.4 mg/dL (2.5-4.9); POTASSIUM 3.6 mmol/L (3.5-5.1)
[2019-02-03] MEDS: MORPHINE SULFATE INJ 2 MG/ML DISP.SYRIN IV PRN (06:10)
--- NOTE | 2019-02-03 07:45 | NUR ---
RN NOTE: RECEIVED PATIENT IN BED, CAN SPONTANEOUSLY OPEN HIS EYES WITH VERBAL CUES, NONVERBAL WITH ETT 7.0 AT LIP LINE 23 CM WITH COOL AEROSOL 10L/MIN SATURATING 100%. NO FACIAL GRIMACING NOTED. HOB ELEVATED. ON KCI MATTRESS FOR SKIN/WOUND MANAGEMENT. (L) NARE NGT IN PLACED AND WAS INFUSING NEPHRO @ 30ML/HR WITH NO GASTRIC RESIDUAL NOTED. LLANES CATHETER IN PLACED WITH ,MINIMAL AMOUNT OF URINE DRAINING TO GRAVITY. (B) SOFT WRIST RESTRAINTS WERE RENEWED TO PREVENT THE PATIENT FROM PULLING LINES. BED ALARMED AND LOCKED AT ALL TIMES. CALL LIGHT WITHIN REACH. NEEDS ANTICIPATED.
--- NOTE | 2019-02-03 08:50 | NUR ---
RN NOTE: DR. AMEZQUITA SPOKE OVER THE PHONE TO THE THE PATIENT'S BROTHER SHAYAN PRESCOTT TO DISCUSS REGARDING THE PLAN OF CARE OF THE PATIENT. DR. AMEZQUITA DISCUSSED ABOUT TRACHEOSTOMY PLACEMENT AND AFTER EXPLANATION FROM MD, THE BROTHER SHAYAN CONSENTED OVER THE PHONE AND WAS VERIFIED WITH ANOTHER NURSE Bea ADKINS RN. INFORMED CONSENT WAS FILED TO PATIENT'S CHART.
[2019-02-03] MEDS: HEPARIN SODIUM, PORCINE 5000 UNITS/1 ML VIAL SQ SCH ×2 (09:44→21:28)
[2019-02-03] MEDS: HYDROGEL DRESSING 90 GM TUBE TP SCH (09:45)
[2019-02-03 10:08] LABS: *WEST NILE VIRUS IgG, CSF Negative (Negative)
[2019-02-03 12:06] LABS: *CRYPTOCOCCUS AG, CSF Negative (Negative); *WEST NILE VIRUS IgM, CSF Negative (Negative)
[2019-02-03 13:07] LABS: VDRL, CSF Non Reactive (Non Rea:<1:1)
[2019-02-03] MEDS: FLUCONAZOLE IN NS,PREMIX 200 MG in PREMIX 1 EA IV SCH ×2 (16:07)
[2019-02-03] MEDS: GENTAMICIN 80 MG in IV D5W 50 ML IV PRN (19:33)
--- NOTE | 2019-02-03 19:40 | NUR ---
RN NOTE: BEDSIDE REPORT WAS GIVEN TO PM SHIFT NURSE FOR CONTINUITY OF CARE. PATIENT REMAINED ON T-PIECE 10L/MIN VIA ETT 7.0 AT LIP LINE 23.0 CM SATURATING 100%. (L) NARE NGT RECEIVING THE NEPHRO @30ML/HR WITH NO GASTRIC RESIDUAL NOTED. (B) SOFT WRIST RESTRAINTS REMAINED IN PLACED DESPITE PATIENT BEING DROWSY DUE TO EPISODES OF TRYING TO PULL LINES. SHAYAN PRESCOTT, BROTHER WAS INFORMED THAT THE PATIENT'S TRACHEOSTOMY PLACEMENT WAS SCHEDULED ON 02/05/19 AT 1100.
--- NOTE | 2019-02-03 20:25 | NUR ---
FUGITIVE DETECTIVE OPENING NOTES RECEIVED REPORT FROM SHILO JARAMILLO. PATIENT A/A/O X1 TO NAME, BUT NON-VERBAL & UNABLE TO MAKE NEEDS KNOWN & STATE PAIN. BREATHING EVEN & UNLABORED W/ ET TUBE IN PLACE @ 7.0/23.5 CM & TOLERATING COOL AEROSOL W/ O2 @ 10LPM & FIO2 40%. NO S/S OF RESPIRATORY DISTRESS NOTED. ON TELE W/ SINUS RHYTHM & 1ST DEGREE AVB & BBB, HR 80S. IV SITE INTACT & PATENT W/ DRESSING CDI, ALL SALINE LOCKED. RIGHT FEMORAL HD CATH IN PLACE W/ NO SIGNS OF INFECTION. LEFT NARE NGT IN PLACE & PATENT W/ GTF NEPRO RUNNING @ 30 ML/HR. LLANES CATH DRAINING YELLOW URINE. NO S/S OF PAIN OR DISCOMFORT @ THIS TIME. TURNED & REPOSITIONED FOR COMFORT & HOB ELEVATED FOR ASPIRATION PRECAUTIONS. WILL CONTINUE TO MONITOR CLOSELY.
[2019-02-04] VITALS (24 sets, daily range): BP systolic 112–141; BP diastolic 55–90
--- NOTE | 2019-02-04 00:30 | NUR ---
TYING IN MACHINE OPERATOR NOTES BED BATH GIVEN & REPOSITIONED.
[2019-02-04] MEDS: METRONIDAZOLE 500MG/ NS 100ML 500 MG in PREMIX 1 EA IV SCH ×5 (00:38→23:22)
[2019-02-04 04:23] LABS: BASOPHILS # (AUTO) 0.2 /CMM (0.0-0.2); BASOPHILS % (AUTO) 1.4 % (0.0-2.0); EOSINOPHILS % (AUTO) 1.5 % (0.0-6.0); HEMATOCRIT 34 % (39-51); HEMOGLOBIN 10.9 g/dL (13.5-17.5); LYMPHOCYTES % (AUTO) 5.7 % (20.0-44.0); MEAN CORPUSCULAR HGB CONC 32 g/dl (31.0-36.0); MEAN CORPUSCULAR VOLUME 93 fL (80-96); MONOCYTES # (AUTO) 1.1 /CMM (0.1-1.30); NEUTROPHILS # (AUTO) 15.5 /CMM (1.8-8.9); NEUTROPHILS % (AUTO) 85.4 % (43.0-81.0); PLATELET COUNT (AUTO) 117 /CMM (150-450); RED BLOOD CELL COUNT(AUTO) 3.65 MIL/uL (4.5-6.0); WHITE BLOOD COUNT (AUTO) 18.2 K/uL (4.3-11.0)
[2019-02-04 04:38] LABS: CALCIUM, SERUM 8.7 mg/dL (8.5-10.1); CREATININE 3.5 mg/dL (0.6-1.3); POTASSIUM 3.6 mmol/L (3.5-5.1)
[2019-02-04 04:39] LABS: MAGNESIUM 2.8 mg/dL (1.8-2.4); PHOSPHORUS 2.7 mg/dL (2.5-4.9)
[2019-02-04] MEDS: IV NS 0.9% 250 ML IV PRN (05:21)
--- NOTE | 2019-02-04 07:13 | NUR ---
FLYING SHEAR OPERATOR CLOSING NOTES PATIENT RESTING COMFORTABLY IN BED. NO SIGNIFICANT EVENTS OVERNIGHT. WILL ENDORSE CATRACHITA TO AM NURSE.
--- NOTE | 2019-02-04 07:15 | NUR ---
SLUDGE CONTROL ATTENDANT NOTES RECEIVED BEDSIDE REPORT. PT A/O X1 NAME ONLY AND MOVES TO LOCALIZED PAIN. NO SIGNS OR SYMPTOMS OF RESPIRATORY DISTRESS ETT 10/08 @ LIP COOL AEROSOL @ 10LPM Addendum: 02/04/19 at 0757 by YARED BERGER RN CONT NOTES COMPUTER TIMED OUT NO C/O PAIN NOTED. BILATERAL WRIST RESTRAINTS FOR PULLINMG AT LINES AND TUBES. LLANES CATH DRAINING CLEAR YELLOW URINE. NGF RUNNING NEPRO @ 30 ML/HR VIA LEFT NARES. IV SALINE LOCK LFA #20 RFA #22 R HAND #20 AND R FEMORAL HD CATH . REPOSITIONED FOR COMFORT. SAFETY AND ASPIRATION PRECAUTIONS IN PLACE BED IN LOW LOCKED POSITION WILL CONT TO MONITOR ACCORDINGLY
--- NOTE | 2019-02-04 07:29 | NUR ---
RT PT RECEIVED ORALLY INTUBATED ON 40% CA. NO APPARENT DISTRESS. TITRATED DOWN TO 28%, PT O2 SAT 100%, TOLERATING WELL. ETT @ 23 AT LIP, AIRWAY PATENT. SX, SMALL, YELLOW SECRETIONS. BREATH SOUNDS CLEAR. AMBU BAG AT HEAD OF BED, HOB 30 DEGREES. CONTINUE CURRENT PLAN OF RESPIRATORY CARE. Addendum: 02/04/19 at 1026 by NATHAN FERRER RT Amended: Links added.
--- NOTE | 2019-02-04 07:50 | NUR ---
CRITICAL LAB GENTAMICIN TROUGH 3.5 WILL MAKE RX AND MD AWARE
[2019-02-04] MEDS: HEPARIN SODIUM, PORCINE 5000 UNITS/1 ML VIAL SQ SCH ×2 (08:56→20:11)
[2019-02-04] MEDS: HYDROGEL DRESSING 90 GM TUBE TP SCH (08:56)
--- NOTE | 2019-02-04 08:57 | NUR ---
HEPARIN HELD PATIENT TO HAVE TRACH PLACEMENT 02/05
--- NOTE | 2019-02-04 11:49 | NUR ---
LEFT MESSAGE WITH BROTHER SHAYAN FOR BLOOD TRANSFUSION CONSENT
[2019-02-04] MEDS: IPRATROPIUM NEB FS 0.5 MG/2.5 ML AMPUL.NEB NEB SCH ×4 (12:56→23:02)
[2019-02-04] MEDS: ALBUTEROL FS 2.5 MG/0.5 ML VIAL.NEB NEB SCH ×4 (12:56→23:02)
[2019-02-04] MEDS ORDERED: LIDOCAINE 1%-EPI 1:100,000 20 ML VIAL TP ONE (13:00)
[2019-02-04] MEDS: GENTAMICIN 80 MG in IV D5W 50 ML IV PRN (14:14)
--- NOTE | 2019-02-04 15:29 | NUR ---
SACRAL DEBRIDEMENT DONE SEE NOTES
[2019-02-04] MEDS: FLUCONAZOLE IN NS,PREMIX 200 MG in PREMIX 1 EA IV SCH ×2 (16:10)
[2019-02-04] MEDS: NEPRO 1,000 ML BOTTLE GT PRN (17:12)
[2019-02-04] MEDS: VANCOMYCIN 500 MG in IV D5W 100 ML IV PRN (18:10)
--- NOTE | 2019-02-04 19:05 | NUR ---
REPORT ENDORSED TO NOC
--- NOTE | 2019-02-04 20:00 | NUR ---
EMISSIONS ENGINEER - NOTES - RECEIVED PATIENT A/A/O X1 TO NAME, BUT UNABLE TO SPEAK INTUBATED. BREATHING EVEN & UNLABORED W/ ET TUBE IN PLACE @ 7.0/23.5 CM & TOLERATING COOL AEROSOL W/ O2 @ 10LPM. NO S/S OF RESPIRATORY DISTRESS NOTED. ON TELE W/ SINUS RHYTHM & 1ST DEGREE AVB & BBB, HR 80S. IV SITE INTACT & PATENT W/ DRESSING CDI, ALL SALINE LOCKED. RIGHT FEMORAL HD CATH IN PLACE W/ NO SIGNS OF INFECTION. LEFT NARE NGT IN PLACE & PATENT W/ GTF NEPRO RUNNING @ 30 ML/HR. LLANES CATH DRAINING YELLOW URINE. NO S/S OF PAIN OR DISCOMFORT @ THIS TIME. TURNED & REPOSITIONED FOR COMFORT & HOB ELEVATED FOR ASPIRATION PRECAUTIONS. WILL CONTINUE TO MONITOR CLOSELY.
[2019-02-05] VITALS (39 sets, daily range): BP systolic 113–134; BP diastolic 68–88
--- NOTE | 2019-02-05 | NUR ---
PT PLACED NPO
[2019-02-05] MEDS: ALBUTEROL FS 2.5 MG/0.5 ML VIAL.NEB NEB SCH ×6 (03:09→23:52)
[2019-02-05] MEDS: IPRATROPIUM NEB FS 0.5 MG/2.5 ML AMPUL.NEB NEB SCH ×6 (03:10→23:52)
[2019-02-05 04:17] LABS: BASOPHILS # (AUTO) 0.2 /CMM (0.0-0.2); BASOPHILS % (AUTO) 1.2 % (0.0-2.0); HEMATOCRIT 33 % (39-51); HEMOGLOBIN 10.8 g/dL (13.5-17.5); LYMPHOCYTES % (AUTO) 6.3 % (20.0-44.0); MEAN CORPUSCULAR HGB CONC 33 g/dl (31.0-36.0); MEAN CORPUSCULAR VOLUME 92 fL (80-96); MONOCYTES # (AUTO) 0.8 /CMM (0.1-1.30); MONOCYTES % (AUTO) 5.2 % (2.0-12.0); NEUTROPHILS # (AUTO) 12.8 /CMM (1.8-8.9); NEUTROPHILS % (AUTO) 84.3 % (43.0-81.0); PLATELET COUNT (AUTO) 101 /CMM (150-450); WHITE BLOOD COUNT (AUTO) 15.2 K/uL (4.3-11.0)
[2019-02-05 04:32] LABS: CALCIUM, SERUM 8.6 mg/dL (8.5-10.1); CREATININE 3.3 mg/dL (0.6-1.3); MAGNESIUM 2.3 mg/dL (1.8-2.4); PHOSPHORUS 2.8 mg/dL (2.5-4.9); POTASSIUM 3.5 mmol/L (3.5-5.1)
[2019-02-05] MEDS: METRONIDAZOLE 500MG/ NS 100ML 500 MG in PREMIX 1 EA IV SCH ×4 (05:00→23:49)
--- NOTE | 2019-02-05 07:15 | NUR ---
ICU/RN: Pt received intubated, on t-piece 10L/min FiO2 28%. Airway cleared of secretions. Pt able to follow some commands, however remains drowsy. Generalized edema noted throughout. Dressings C/D/I. Will cont to monitor pt.
[2019-02-05] MEDS: HYDROGEL DRESSING 90 GM TUBE TP SCH (08:16)
--- NOTE | 2019-02-05 10:30 | NUR ---
ICU/RN: Sanjay, brother and DPOA at bedside discussing plan of care with Mike Stoner, LAURIE and Dr Gregorio. Plan for trach/peg and permacath insertion on sunday. Sanjay verbalized understanding of plan of care, consents obtained.
--- NOTE | 2019-02-05 14:00 | NUR ---
ICU/RN: Pt restless, confused, attempting to pull lines during restraint care. Safety precautions observed.
--- NOTE | 2019-02-05 15:30 | NUR ---
ICU/RN: Bed bath, wound care rendered. Pt tolerated well. Pt with periods of confusion and unable to assist with turning.
[2019-02-05] MEDS: FLUCONAZOLE IN NS,PREMIX 200 MG in PREMIX 1 EA IV SCH ×2 (16:46)
[2019-02-05] MEDS: PROSOURCE / PROSTAT (PYXIS) 30 ML UDC GT SCH (17:13)
[2019-02-05] MEDS: NEPRO 1,000 ML BOTTLE GT PRN (17:14)
--- NOTE | 2019-02-05 19:00 | NUR ---
ICU/RN: Simba PICC RN at the bedside for midline insertion. Pt remains comfortable on current settings.
--- NOTE | 2019-02-05 19:45 | NUR ---
ICU/ORTHOTIC/PROSTHETIC PRACTITIONER RECEIVED REPORT FROM DAY SHIFT NURSE. SEE FLOWSHEET FOR ASSESSMENT. THERE ARE A COUPLE SKIN ISSUES THAT PT HAS, WHICH IS ADDRESSED ON FLOWSHEET ALONG WITH THE INTERVENTION TO EACH.PT IS ALERT X SELF.PT IS CURRENTLY ON T-PIECE TOLERATING THESE SETTINGS WITH SATURATION AT 97-100%. PT WAS TURNED AND REPOSITIONED FOR COMFORT AND CARE. WILL CONTINUE TO MONITOR THIS PT.
--- NOTE | 2019-02-05 22:20 | NUR ---
ICU/PATTERN CHART WRITER PT WAS TURNED AND REPOSITIONED FOR COMFORT AND CARE. PT REMAINS WITH T-TUBE 28%, WITH SATURATION AT 100%. WILL CONTINUE TO MONITOR THIS PT.
[2019-02-06] VITALS (46 sets, daily range): BP systolic 104–141; BP diastolic 51–99
--- NOTE | 2019-02-06 00:10 | NUR ---
ICU/JUNIOR SYSTEMS ANALYST PT WAS TURNED AND REPOSITIONED FOR COMFORT AND CARE. PT REMAINS WITH T-TUBE 28%, WITH SATURATION AT 100%. WILL CONTINUE TO MONITOR THIS PT. NO ACUTE PAIN SEEN ALONG WITH NO ACUTE DISTRESS SEEN.
--- NOTE | 2019-02-06 02:45 | NUR ---
ICU/RETAIL LOSS PREVENTION INVESTIGATOR PT WAS GIVEN AM CARE. PT TOLERATED THIS WELL, REMAINS ON CURRENT VENT SETTINGS WITH SATURATION AT 100%. PT WAS TURNED AND REPOSITIONED FOR COMFORT AND CARE. WILL CONTINUE TO MONITOR THIS PT. NO ACUTE DISTRESS SEEN AT THIS TIME.
[2019-02-06] MEDS: ALBUTEROL FS 2.5 MG/0.5 ML VIAL.NEB NEB SCH ×6 (03:22→23:14)
[2019-02-06] MEDS: IPRATROPIUM NEB FS 0.5 MG/2.5 ML AMPUL.NEB NEB SCH ×6 (03:22→23:14)
--- NOTE | 2019-02-06 04:00 | NUR ---
ICU/CLINIC SUPERVISOR AM LABS WERE DRAWN, AWAITING FOR ANY ABNORMAL LABS.
[2019-02-06 05:09] LABS: BASOPHILS # (AUTO) 0.2 /CMM (0.0-0.2); BASOPHILS % (AUTO) 1.1 % (0.0-2.0); EOSINOPHILS % (AUTO) 2.7 % (0.0-6.0); HEMATOCRIT 33 % (39-51); HEMOGLOBIN 10.6 g/dL (13.5-17.5); LYMPHOCYTES % (AUTO) 6.6 % (20.0-44.0); MEAN CORPUSCULAR HGB CONC 32 g/dl (31.0-36.0); MEAN CORPUSCULAR VOLUME 92 fL (80-96); MONOCYTES # (AUTO) 0.8 /CMM (0.1-1.30); NEUTROPHILS % (AUTO) 84.6 % (43.0-81.0); PLATELET COUNT (AUTO) 124 /CMM (150-450); RED BLOOD CELL COUNT(AUTO) 3.57 MIL/uL (4.5-6.0); WHITE BLOOD COUNT (AUTO) 15.4 K/uL (4.3-11.0)
[2019-02-06] MEDS: METRONIDAZOLE 500MG/ NS 100ML 500 MG in PREMIX 1 EA IV SCH ×3 (05:40→18:38)
[2019-02-06 06:12] LABS: CALCIUM, SERUM 8.4 mg/dL (8.5-10.1); CREATININE 3.7 mg/dL (0.6-1.3); POTASSIUM 3.5 mmol/L (3.5-5.1)
[2019-02-06 06:32] LABS: GENTAMICIN,TROUGH 2.8 ug/ml (0.2-2.0)
[2019-02-06] MEDS: VIT B CMPLX 3/FA/VIT C/BIOTIN 1 TAB TABLET PO SCH (08:03)
[2019-02-06] MEDS: HYDROGEL DRESSING 90 GM TUBE TP SCH (08:04)
[2019-02-06] MEDS: PROSOURCE / PROSTAT (PYXIS) 30 ML UDC GT SCH ×3 (08:04→16:50)
--- NOTE | 2019-02-06 09:45 | NUR ---
ICU/RN: RN followed up with Dr Mei regarding possible PEG placement tomorrow; per MD, "I wasn't notified yet. Please let Mike Stoner know I can schedule him for tomorrow, I just need a go-ahead from him." Mike Stoner, PRESCHOOL DIRECTOR notified and will speak with Dr Mei.
--- NOTE | 2019-02-06 10:45 | NUR ---
ICU/RN: Dr Gregorio updated on pt status. Pt currently on HD. Informed for plan for tracheostomy tomorrow, however no note regarding permacath placement. Per Dr Gregorio, "Dr Caraballo is now on the case, please remind him of the permacath placement." RN called Dr Caraballo's office and spoke with scheduling and will add permacath tomorrow. Office to call back to confirm scheduling. Awaiting call back.
--- NOTE | 2019-02-06 12:15 | NUR ---
ICU/RN: Oral care and suctioning rendered. Pt noted with thick green secretions.
[2019-02-06] MEDS: VANCOMYCIN 500 MG in IV D5W 100 ML IV PRN (13:38)
--- NOTE | 2019-02-06 15:30 | NUR ---
ICU/RN: Bed bath, wound care rendered. Pt tolerated well. Flexiseal inserted; pt noted with brown liquid stool. Pt with R femoral HD cath and sacral wounds. Skin care rendered.
[2019-02-06] MEDS: FLUCONAZOLE IN NS,PREMIX 200 MG in PREMIX 1 EA IV SCH ×2 (16:42)
--- NOTE | 2019-02-06 18:46 | NUR ---
ICU/RN: Updated Sanjay, brother and DPOA. Requesting to visit brother in the hospital prior to getting picked up by OR staff in the am. supervisor cured meats notified.
--- NOTE | 2019-02-06 20:34 | NUR ---
RT NOTE PT RECEIVED INTUBATED WITH ET TUBE SIZE 7.0 @ 23 MID LIP LINE ON AEROSOL T-PIECE @ 40%. CUFF DEFLATED. PT AWAKE/ALERT. TX GIVEN, NO ADVERSE REACTIONS NOTED. SX DONE, ET TUBE SECURED AND PATENT. WATER LEVEL GOOD. NO SOB NOTED AT THIS TIME. Addendum: 02/06/19 at 2036 by CANDIDA BARBER RT Amended: Links added.
[2019-02-07] VITALS (26 sets, daily range): BP systolic 107–135; BP diastolic 72–98
[2019-02-07] MEDS: METRONIDAZOLE 500MG/ NS 100ML 500 MG in PREMIX 1 EA IV SCH ×4 (01:04→17:16)
[2019-02-07] MEDS: IPRATROPIUM NEB FS 0.5 MG/2.5 ML AMPUL.NEB NEB SCH ×6 (03:50→23:18)
[2019-02-07] MEDS: ALBUTEROL FS 2.5 MG/0.5 ML VIAL.NEB NEB SCH ×6 (03:50→23:18)
[2019-02-07 04:58] LABS: BASOPHILS # (AUTO) 0.2 /CMM (0.0-0.2); BASOPHILS % (AUTO) 1.5 % (0.0-2.0); EOSINOPHILS % (AUTO) 4.6 % (0.0-6.0); HEMATOCRIT 33 % (39-51); HEMOGLOBIN 10.6 g/dL (13.5-17.5); LYMPHOCYTES # (AUTO) 0.9 /CMM (0.8-4.8); LYMPHOCYTES % (AUTO) 6.5 % (20.0-44.0); MEAN CORPUSCULAR HGB CONC 32 g/dl (31.0-36.0); MEAN CORPUSCULAR VOLUME 92 fL (80-96); MONOCYTES # (AUTO) 0.7 /CMM (0.1-1.30); MONOCYTES % (AUTO) 4.9 % (2.0-12.0); NEUTROPHILS # (AUTO) 11.5 /CMM (1.8-8.9); NEUTROPHILS % (AUTO) 82.5 % (43.0-81.0); PLATELET COUNT (AUTO) 117 /CMM (150-450); RED BLOOD CELL COUNT(AUTO) 3.64 MIL/uL (4.5-6.0)
[2019-02-07 05:12] LABS: CALCIUM, SERUM 8.7 mg/dL (8.5-10.1); CREATININE 3.2 mg/dL (0.6-1.3); MAGNESIUM 2.2 mg/dL (1.8-2.4); PHOSPHORUS 2.9 mg/dL (2.5-4.9); POTASSIUM 3.1 mmol/L (3.5-5.1)
--- NOTE | 2019-02-07 06:14 | NUR ---
RN NOTES PATIENT COMFORTABLY RESTING IN BED WITH NO APPARENT DISTRESS. TPIECE WELL TOLERATED. WRIST RESTRAINT TO LEFT HAND IN PLACE, REMOVE EVERY TWO HOURS FOR HYGIENE AND REPOSITIONING AND CIRCULATION. NO PHYSICAL MANIFESTATION OF PAIN OR DISCOMFORT. VITAL SIGNS WNL. SCHEDULED FOR SURGERY FOR TRACH, PED AND PERMA CATH. NPO AT MIDNIGHT. KEPTCLEAN AND DRY. WILL ENDORSE TO AM SHIFT FOR CONTINUITY OF CARE
[2019-02-07] MEDS ORDERED: LIDOCAINE HCL/PF 1% 30 ML SDV ONE (06:56)
[2019-02-07] MEDS ORDERED: HEPARIN SODIUM, PORCINE 1,000 UNIT/ML VIAL ONE (06:56)
[2019-02-07] MEDS ORDERED: ANESTHESIA TRAY IN PYXIS 1 EA TRAY MC ONE (06:57)
--- NOTE | 2019-02-07 07:10 | NUR ---
RN INITIAL NOTES RECEIVED PT AWAKE, A/OX1. PT INTUBATED, ON T-PIECE. NO RESPIRATORY DISTRESS NOTED. NO SOB NOTED. NO SIGNS OF PAIN NOTED. NGT IN PLACE, CLAMPED. BRADEN MIDLINE AND RIGHT FEMORAL HD CATH IN PLACE. FC IN PLACE. NO HEMATURIA NOTED. FLEXISEAL IN PLACE. PT FOR TRACH, PEG AND PERMACATH PLACEMENT. ALL CONSENT SIGNED. PT REPOSITIONED. BLE ELEVATED. WILL MONITOR
[2019-02-07] MEDS ORDERED: AMIODARONE 150 MG/3 ML VIAL IV ONE (07:30)
--- NOTE | 2019-02-07 08:05 | NUR ---
RN NOTES PT LEFT TO OR FOR TRACH, PEG AND PERMACATH PLACEMENT. PT LEFT IN STABLE CONDITION
[2019-02-07] MEDS: PROSOURCE / PROSTAT (PYXIS) 30 ML UDC GT SCH ×3 (08:30→16:16)
[2019-02-07] MEDS: VIT B CMPLX 3/FA/VIT C/BIOTIN 1 TAB TABLET PO SCH (08:31)
[2019-02-07] MEDS: HYDROGEL DRESSING 90 GM TUBE TP SCH (08:31)
[2019-02-07] MEDS ORDERED: NOREPINEPHRINE 4 MG/4 ML AMPUL IV ONE (08:56)
[2019-02-07] MEDS ORDERED: NOREPINEPHRINE 16 MG in IV D5W 500 ML IV PRN (09:00)
--- NOTE | 2019-02-07 09:15 | NUR ---
RN NOTES PT BACK FROM OR. SP PERMACATH PLACEMENT, LEFT CHESTWALL. NO SIGNS OF ACTIVE BLEEDING NOTED. DRESSING CLEAN AND DRY. PT INTUBATED, ON T-COOL AEROSOL. RR 25-28, ABDOMINAL BREATHING NOTED. CALLED DR AMEZQUITA AND ORDERED PLACE BACK ON VENT. VS WNL. WILL CLOSELY MONITOR. Addendum: 02/07/19 at 0929 by NOÉ PLATA RN PER ANESTHESIOLOGIST, PT'S HR AND BP DROPPED. DIDN'T PUSH THROUGH WITH TRACH AND PEG PLACEMENT. PT UNSTABLE
[2019-02-07] MEDS: NEPRO 1,000 ML BOTTLE GT PRN (11:23)
[2019-02-07] MEDS ORDERED: NEPRO 1,000 ML BOTTLE GT PRN (11:30)
[2019-02-07] MEDS: GENTAMICIN 80 MG in IV D5W 50 ML IV PRN (12:19)
[2019-02-07] MEDS: FLUCONAZOLE IN NS,PREMIX 200 MG in PREMIX 1 EA IV SCH ×2 (15:05)
[2019-02-07] MEDS ORDERED: POTASSIUM CHLORIDE 20 MEQ POWDER PACKET GT ONE (15:30)
--- NOTE | 2019-02-07 18:18 | NUR ---
RN CLOSING NOTES PT REMAINS INTUBATED, ON VENT. NO RESPIRATORY DISTRESS NOTED. NO SIGNS OF PAIN NOTED. HOB ELEVATED. TOLERATING GTF WELL. TX PROVIDED ORDERED. KEPT CLEAN AND DRY. REPOSITIONED Q2. BLE ELEVATED. CPAP IN AM. WILL ENDORSE FOR CONTINUITY OF CARE.
--- NOTE | 2019-02-07 19:30 | NUR ---
Received patient resting in no acute distress.Patient on full vent support on AC mode as prescribed. Bilateral soft wrist restraints in place for safety.SR with 1st degree AVB.Normotensive.Right nares NGT in place verified by aspiration and auscultation.Feeding infusing and tolerating well.No residual noted. HOB elevated.FC to gravity.IVF at TKO via BRADEN ML.Site intact.Left upper chest wall perma cath intact with dressing C/D/I.Turned and repositioned.
[2019-02-08] VITALS (43 sets, daily range): BP systolic 77–126; BP diastolic 36–81
[2019-02-08] MEDS: ALBUTEROL FS 2.5 MG/0.5 ML VIAL.NEB NEB SCH ×6 (03:27→23:37)
[2019-02-08] MEDS: IPRATROPIUM NEB FS 0.5 MG/2.5 ML AMPUL.NEB NEB SCH ×6 (03:27→23:37)
[2019-02-08] MEDS: MORPHINE SULFATE INJ 2 MG/ML DISP.SYRIN IV PRN ×2 (03:44→20:24)
[2019-02-08] MEDS: METRONIDAZOLE 500MG/ NS 100ML 500 MG in PREMIX 1 EA IV SCH ×5 (05:41→19:04)
[2019-02-08 07:28] LABS: CALCIUM, SERUM 8.1 mg/dL (8.5-10.1); CREATININE 3.4 mg/dL (0.6-1.3); POTASSIUM 3.6 mmol/L (3.5-5.1)
[2019-02-08 07:52] LABS: GENTAMICIN,TROUGH 2.8 ug/ml (0.2-2.0)
--- NOTE | 2019-02-08 09:10 | NUR ---
Vent settings' changes done per Dr. Haas: from AC mode to CPAP +5, PSV of 15. To titrate Spo2 > or equal 94%. Will monitor patient's tolerance with the new settings.
[2019-02-08] MEDS ORDERED: ALBUMIN 25% 25 GM in PREMIX 1 EA IV PRN (10:30)
[2019-02-08] MEDS: PROSOURCE / PROSTAT (PYXIS) 30 ML UDC GT SCH ×3 (11:07→18:52)
[2019-02-08] MEDS: VIT B CMPLX 3/FA/VIT C/BIOTIN 1 TAB TABLET PO SCH (11:07)
[2019-02-08] MEDS: HYDROGEL DRESSING 90 GM TUBE TP SCH (11:08)
--- NOTE | 2019-02-08 14:06 | NUR ---
Per pharmacy do not administer gentamycin and vancomaycin IVs today because hemodialysis was not able to finish because permacath got clotted in the middle of the procedure. Troughs of both meds will be done tomorrow.
--- NOTE | 2019-02-08 19:31 | NUR ---
CHAINSTITCH SEAT JOINER NOTE PATIENT COMPLETED HD. NO UF REMOVED. PATIENT BLOOD CLEANED. PATIENT BP 125/80. RN WILL CONTINUE TO MONITOR FOR CHANGES.
[2019-02-09] VITALS (24 sets, daily range): BP systolic 111–134; BP diastolic 51–91
[2019-02-09] MEDS: METRONIDAZOLE 500MG/ NS 100ML 500 MG in PREMIX 1 EA IV SCH ×2 (00:24→05:59)
--- NOTE | 2019-02-09 01:19 | NUR ---
RT NOTE PT SELF EXTUBATED HIS SELF. PLACED ON NON-REBREATHER. SPO2 100% HR 84. STAT ABG ORDER PLACED.
--- NOTE | 2019-02-09 02:01 | NUR ---
TENNIS DIRECTOR NOTE MD SIERRA NOTIFIED. PATIENT ABG STABLE. PER OK TO KEEP OFF INTUBATION, MONITOR AND ORDER ABG FOR THE MORNING, AND PRN FOR CONDITION CHANGES. PATIENT TOLERATING NON REBREATHER MASK AT 15 L. BAD FULLY INFLATED. BREATH EVEN AND UNLABORED RN WILL CONTINUE TO MONITOR.
[2019-02-09] MEDS: IPRATROPIUM NEB FS 0.5 MG/2.5 ML AMPUL.NEB NEB SCH ×6 (03:52→23:11)
[2019-02-09] MEDS: ALBUTEROL FS 2.5 MG/0.5 ML VIAL.NEB NEB SCH ×6 (03:52→23:11)
[2019-02-09 04:34] LABS: ABG BASE EXCESS 0.2 mmol/L; ABG OXYGEN SATURATION 97.6 % (92.0-98.5); ABG PCO2 33.7 mmHg (35.0-45.0); ABG PH 7.464 (7.350-7.450); ABG PO2 109.7 mmHg (75.0-100.0); AaDO2 569.6 mmHg; COHb 0.2 % (0.5-1.5); MetHb 0.6 % (0.0-1.5); O2Hb 96.8 % (94.0-97.0); VENT MODE, BG NRB 100%
--- NOTE | 2019-02-09 05:00 | NUR ---
MD PHYSICIAN DERMATOLOGIST NOTE NOTIFIED ARDHA DOWNEY THE BROTHER OF PATIENT EXTUBATION. BROTHER WILL COME AN VISIT PATIENT LATER TODAY.
--- NOTE | 2019-02-09 07:15 | NUR ---
CONSULTING TECHNICAL MANAGER NOTES RECEIVED BEDSIDE REPORT PATIENT IN BED AWAKE A/O 1-2 MILD CONFUSION FOLLOWS COMMANDS. NO SIGNS OR SYMPTOMS OF RESPIRATORY DISTRESS S/P SELF EXTUBATION ON 10LTRS NONREBREATHER SATURATING 98%. NO C/O PAIN NOTED. SINUS ON MONITOR BILATERAL WRIST RESTRAINTS FOR PULLING AT TUBES CHECKED FOR CIRCULATION . LLANES CATH DRAINING MINIMAL URINE LAST HD 02/08. BRADEN MIDLINE TKO RIGHT HAND # 20 GAUGE SL RIGHT FEMORAL HD CATH . SAFETY AND ASPIRATION PRECAUTIONS IN PLACE NBED IN LOW LOCKED POSITION WILL CONT TO MONITOR ACCORDINGLY
--- NOTE | 2019-02-09 07:29 | NUR ---
TRADE FACILITATOR NOTE PATIENT CONTINUED TO TOLERATED 10L SIMPLE MASK. NGT HELD AT THIS TIME. PENDING SWALLOW EVAL. PATIENT ABLE TO VERBALIZE NEEDS. A/0 X 1-2. PATIENT IV'S REMAIN PATENT AND INTACT NO S/S OF INFECTION OR INFILTRATION. WOUND CARE GIVEN ORDERED PATIENT TURNED AND REPOSITIONED Q 2 H. ENDORSED TO AM NURSE YARED FOR CATRACHITA.
--- NOTE | 2019-02-09 07:30 | NUR ---
PT PLACED ON 3 LTRS NASAL CANNULA SATURATING 100%
[2019-02-09] MEDS: PROSOURCE / PROSTAT (PYXIS) 30 ML UDC GT SCH ×3 (08:22→16:27)
[2019-02-09] MEDS: VIT B CMPLX 3/FA/VIT C/BIOTIN 1 TAB TABLET PO SCH (08:22)
[2019-02-09] MEDS: HYDROGEL DRESSING 90 GM TUBE TP SCH (08:23)
--- NOTE | 2019-02-09 08:23 | NUR ---
0900 MEDS NOTE GIVEN PATIENT REMOVED NGT AWAITING SWALLOW EVAL
--- NOTE | 2019-02-09 09:28 | NUR ---
DR JO SPOKE WITH PATIENTS BROTHER IN DEPTH IN REGARDS TO PT HEALTH AND TOLERANCE FOR AND PROCEDURES IN THE FUTURE WITH ANESTHESIA
--- NOTE | 2019-02-09 10:20 | NUR ---
SPOKE WITH SHILO SEXTON CIGARETTE FILTER INSPECTOR REGARDING LEVAQUIN PO ORDER. PT HAS NO NGT ORDER CHANGED TO IV
[2019-02-09] MEDS: LEVOFLOXACIN (250MG) 250 MG TABLET PO SCH (10:30)
--- NOTE | 2019-02-09 12:15 | NUR ---
ORDERS OBTAINED FROM MAURO KELLER D5 1/2MS @ 60ML/HR
--- NOTE | 2019-02-09 12:47 | NUR ---
DR STEWART TORRES CHANGED FLUID ORDER TO D5 1/2NS @ 30ML/HR
[2019-02-09] MEDS: IV D5/0.45 NACL 1,000 ML IV PRN (12:56)
[2019-02-09] MEDS ORDERED: IV D5/0.45 NACL 1,000 ML IV PRN (13:00)
--- NOTE | 2019-02-09 16:22 | NUR ---
BED BATH GIVEN ORAL AND WOUND CARE RENDERED
[2019-02-09] MEDS: MORPHINE SULFATE INJ 2 MG/ML DISP.SYRIN IV PRN (16:26)
--- NOTE | 2019-02-09 19:18 | NUR ---
REPORT ENDORSED TO NOC NO SIGNIFICANT CHANGES THROUGHOUT SHIFT
--- NOTE | 2019-02-09 19:20 | NUR ---
TRIMMER MACHINE NOTES RECEIVED BEDSIDE REPORT PATIENT IN BED AWAKE A/O 1-2 SMILING, ON 3LPM VIA NC, BREATHING EVEN AND UNLABORED, NO S/S OF ANY SOB/ACUTE DISTRESS NOTED AT THIS TIME, WITHO2 SAT LEVEL 96-99% AT THIS TIME, S/P SELF EXTUBATION, NSR SON MONITOR WITH HR IN THE 70S AT THIS TIME, ON BILATERAL WRIST RESTRAINTS CIRCULATION CHECKS DONE, NO CIRCULATION COMPROMISED, LLANES CATH IN PLACED, NOTED WITH MINIMAL YELLOW URINE, BRADEN MIDLINE D5 1/2 NS AT 30ML/HR, INFUSING WELL AND PATIENT TOLERATED WELL, RIGHT FEMORAL HD CATH IN PLACED, SAFETY AND ASPIRATION PRECAUTIONS IN PLACED, BED LOCKED AND IN LOW POSITION, WILL CONTINUE TO MONITOR TO MONITOR CLOSELY.
[2019-02-10] VITALS (31 sets, daily range): BP systolic 110–158; BP diastolic 73–90
[2019-02-10] MEDS: IPRATROPIUM NEB FS 0.5 MG/2.5 ML AMPUL.NEB NEB SCH ×6 (03:37→23:15)
[2019-02-10] MEDS: ALBUTEROL FS 2.5 MG/0.5 ML VIAL.NEB NEB SCH ×6 (03:37→23:15)
[2019-02-10 04:33] LABS: BASOPHILS # (AUTO) 0.2 /CMM (0.0-0.2); BASOPHILS % (AUTO) 1.3 % (0.0-2.0); EOSINOPHILS % (AUTO) 3.4 % (0.0-6.0); HEMATOCRIT 31 % (39-51); HEMOGLOBIN 9.9 g/dL (13.5-17.5); LYMPHOCYTES % (AUTO) 8.1 % (20.0-44.0); MEAN CORPUSCULAR HGB CONC 32 g/dl (31.0-36.0); MEAN CORPUSCULAR VOLUME 92 fL (80-96); MONOCYTES # (AUTO) 0.7 /CMM (0.1-1.30); MONOCYTES % (AUTO) 5.7 % (2.0-12.0); NEUTROPHILS # (AUTO) 10.1 /CMM (1.8-8.9); NEUTROPHILS % (AUTO) 81.5 % (43.0-81.0); PLATELET COUNT (AUTO) 182 /CMM (150-450); RED BLOOD CELL COUNT(AUTO) 3.34 MIL/uL (4.5-6.0); WHITE BLOOD COUNT (AUTO) 12.5 K/uL (4.3-11.0)
[2019-02-10 04:58] LABS: CALCIUM, SERUM 8.6 mg/dL (8.5-10.1); CREATININE 3.4 mg/dL (0.6-1.3); MAGNESIUM 2.1 mg/dL (1.8-2.4); PHOSPHORUS 3.3 mg/dL (2.5-4.9); POTASSIUM 3.4 mmol/L (3.5-5.1)
--- NOTE | 2019-02-10 06:45 | NUR ---
BRIM STIFFENER NOTES, NO CHANGE IN CONDITION DURING THE NIGHT, CONTINUE ON 3MLP VIA NC WITH O2 SAT LEVEL 100% AT HIS TIME, WILL ENDORSE CONTINUITY OF CARE TO ONCOMING NURSE.
--- NOTE | 2019-02-10 07:11 | NUR ---
MANPOWER DEVELOPMENT SPECIALIST MANAGER NOTES RECEIVED BEDSIDE REPORT PATIENT IN BED AWAKE A/O 1-2 MILD CONFUSION FOLLOWS COMMANDS. NO SIGNS OR SYMPTOMS OF RESPIRATORY DISTRESS S/P SELF EXTUBATION CURRENTLY ON 3LTRS NC SATURATING 98%. NO C/O PAIN NOTED. SINUS ON MONITOR BILATERAL WRIST RESTRAINTS FOR PULLING AT TUBES CHECKED FOR CIRCULATION . LLANES CATH DRAINING MINIMAL URINE LAST HD 02/08. BRADEN MIDLINE TKO RIGHT LCW PORT A CATH RIGHT FEMORAL HD CATH . SAFETY AND ASPIRATION PRECAUTIONS IN PLACE BED IN LOW LOCKED POSITION WILL CONT TO MONITOR ACCORDINGLY
[2019-02-10] MEDS: VIT B CMPLX 3/FA/VIT C/BIOTIN 1 TAB TABLET PO SCH (08:23)
[2019-02-10] MEDS: HYDROGEL DRESSING 90 GM TUBE TP SCH (08:23)
[2019-02-10] MEDS: PROSOURCE / PROSTAT (PYXIS) 30 ML UDC GT SCH ×3 (08:23→17:10)
--- NOTE | 2019-02-10 09:22 | NUR ---
ST AT BEDSIDE FOR SWALLOW EVALUATION
--- NOTE | 2019-02-10 09:30 | NUR ---
PT PASSED SWALLOW EVALUATION PUREE DIET WITH THICKEN LIQUIDS ORDERED WELL ENSURE TID
[2019-02-10] MEDS: LEVOFLOXACIN (250MG) 250 MG TABLET PO SCH (10:19)
--- NOTE | 2019-02-10 10:52 | NUR ---
FAMILY REQUESTING GYROSCOPE REPAIRER CONSULTATION
[2019-02-10] MEDS: ENSURE ENLIVE CHOC 237 ML CAN PO SCH ×2 (12:23→17:10)
[2019-02-10] MEDS ORDERED: POTASSIUM CHLORIDE 10 MEQ/50 ML PREMIXED IVPB FOR PERIPHERAL LINE IV ONE ×2 (12:30→13:30)
[2019-02-10] MEDS: POTASSIUM CL. PREMIX PERIPHER. 50 ML IV SCH ×2 (12:31→13:30)
--- NOTE | 2019-02-10 14:15 | NUR ---
PT AT BEDSIDE TO EVALUATE PT. PT TOTAL ASSIST UNABLE TO SIT UP AT BEDSIDE
[2019-02-10] MEDS: MORPHINE SULFATE INJ 2 MG/ML DISP.SYRIN IV PRN (14:23)
--- NOTE | 2019-02-10 14:35 | NUR ---
HECTOR FROM [facility] CALLED FOR PT [facility] . WILL BE IN FIRST THING IN THE MORNING 02/11 TO FIT PATIENT. CONTACT NUMBER [phone]
--- NOTE | 2019-02-10 14:50 | NUR ---
PATIENT BED BATH GIVEN ORAL CARE AND WOUND TREATMENT RENDERED TOLERATED WELL REPOSITIONED FOR COMFORT
--- NOTE | 2019-02-10 15:00 | NUR ---
WOUND DEBRIDEMENT DONE BY LUCIUS LEYVA TOLERATED
[2019-02-10] MEDS: DAKINS QUARTER STRENGTH (0.125%) 480 ML BOTTLE TOP SCH (16:00)
[2019-02-10] MEDS: IV D5/0.45 NACL 1,000 ML IV PRN (16:52)
--- NOTE | 2019-02-10 19:11 | NUR ---
REPORT ENDORSED TO YANIQUE ROQUE
--- NOTE | 2019-02-10 19:15 | NUR ---
ICU NOTES RECEIVED PT AWAKE,ALERT,OX1-2.DENIES PAIN OR DISCOMFORT.OFFERS NO COMPLAINTS.MONITOR SHOWS NSR.O2 VIA N/C AT 2LPM,SATURATING 100%LLANES PATENT W/ SCANT TEA-COLORED URINE,PT IS FOR HD TOMORROW FLEXI SEAL INTACT W/OUT DRAINAGE.REPOSITIONED AND TURNED.
[2019-02-11] VITALS (32 sets, daily range): BP systolic 94–140; BP diastolic 61–88
--- NOTE | 2019-02-11 02:01 | NUR ---
ICU NOTES COMPLETE BED BATH DONE.MEPILEX TO SACRUM INTACT.
[2019-02-11] MEDS: IPRATROPIUM NEB FS 0.5 MG/2.5 ML AMPUL.NEB NEB SCH ×6 (03:37→23:47)
[2019-02-11] MEDS: ALBUTEROL FS 2.5 MG/0.5 ML VIAL.NEB NEB SCH ×6 (03:37→23:47)
[2019-02-11 04:25] LABS: BASOPHILS # (AUTO) 0.2 /CMM (0.0-0.2); BASOPHILS % (AUTO) 1.5 % (0.0-2.0); EOSINOPHILS % (AUTO) 4.7 % (0.0-6.0); HEMATOCRIT 31 % (39-51); HEMOGLOBIN 10.3 g/dL (13.5-17.5); LYMPHOCYTES # (AUTO) 0.9 /CMM (0.8-4.8); LYMPHOCYTES % (AUTO) 8.6 % (20.0-44.0); MEAN CORPUSCULAR HGB CONC 33 g/dl (31.0-36.0); MEAN CORPUSCULAR VOLUME 92 fL (80-96); MONOCYTES # (AUTO) 0.8 /CMM (0.1-1.30); MONOCYTES % (AUTO) 7.6 % (2.0-12.0); NEUTROPHILS # (AUTO) 8.5 /CMM (1.8-8.9); NEUTROPHILS % (AUTO) 77.6 % (43.0-81.0); PLATELET COUNT (AUTO) 245 /CMM (150-450); WHITE BLOOD COUNT (AUTO) 10.9 K/uL (4.3-11.0)
[2019-02-11 04:39] LABS: CALCIUM, SERUM 8.5 mg/dL (8.5-10.1); CREATININE 3.5 mg/dL (0.6-1.3); PHOSPHORUS 3.7 mg/dL (2.5-4.9); POTASSIUM 3.8 mmol/L (3.5-5.1)
--- NOTE | 2019-02-11 07:01 | NUR ---
ICU ALEXANDRA REPORT AND CARE OF PT GIVEN TO YARED JARAMILLO.
[2019-02-11] MEDS: ENSURE ENLIVE CHOC 237 ML CAN PO SCH (08:53)
[2019-02-11] MEDS: VIT B CMPLX 3/FA/VIT C/BIOTIN 1 TAB TABLET PO SCH (08:56)
[2019-02-11] MEDS: DAKINS QUARTER STRENGTH (0.125%) 480 ML BOTTLE TOP SCH (08:57)
[2019-02-11] MEDS: PROSOURCE / PROSTAT (PYXIS) 30 ML UDC GT SCH ×3 (08:58→17:00)
[2019-02-11] MEDS: HYDROGEL DRESSING 90 GM TUBE TP SCH (08:58)
[2019-02-11] MEDS: LEVOFLOXACIN (250MG) 250 MG TABLET PO SCH (09:54)
--- NOTE | 2019-02-11 10:22 | NUR ---
HECTOR FROM [facility] TO SEE PATIENT FOR HALTER
[2019-02-11] MEDS: GLUCERNA SHAKE 237 ML CAN PO SCH ×2 (12:00→17:00)
--- NOTE | 2019-02-11 13:24 | NUR ---
PT RECEIVING HD
--- NOTE | 2019-02-11 13:42 | NUR ---
DR BANKS TO SEE PT . HD RN WILL D/C FEMORAL CATH AFTER HD
[2019-02-11] MEDS ORDERED: ALBUMIN 25% 25 GM in PREMIX 1 EA IV PRN (15:00)
--- NOTE | 2019-02-11 16:38 | NUR ---
HD CATH REMOVED BY HD RN. PRESSURE APPLIED WILL CONT TO MONITOR
--- NOTE | 2019-02-11 16:50 | NUR ---
MESSAGES SHARMILA TO INFORM HER THAT PT DID NOT TOLERATE HD. ORDERS TO KEEP PT IN ICU
--- NOTE | 2019-02-11 17:30 | NUR ---
BEDBATH GIVEN ORAL AND WOUND CARE RENDERED PT REFUSED DINNER
--- NOTE | 2019-02-11 19:00 | NUR ---
REPORT ENDORSED TO NOC
--- NOTE | 2019-02-11 19:15 | NUR ---
ICU NOTES RECEIVED PT AWAKE,OX2.FOLLOWS SIMPLE VERBAL COMMANDS.BILATERAL SOFT WRIST RESTRAINTS IN PLACE.LLANES AND FLEXI SEAL INTACT.REPOSITION AND TURNED.
[2019-02-12] VITALS (20 sets, daily range): BP systolic 110–142; BP diastolic 33–99
--- NOTE | 2019-02-12 | NUR ---
ICU NOTES PT WIDE AWAKE ASKING FOR ENSURE-GIVEN 120 ML W/OUT CHOKING OR COUGHINGVITAL SIGNS STABLE..
--- NOTE | 2019-02-12 02:00 | NUR ---
ICU NOTES PT LYING ALMOST ACROSS THE BED W/HEAD ON TOP OF SIDE RAILS AND BOTH LEGS ON RT SIDE OF BED,REPOSITIONED W/ DIFFICULTY.DRINKING FLUIDS W/ THICKENER.ALERT AND TALKATIVE.ENCOURAGE PT TO GO BACK TO SLEEP ONLY AFTER DRINKING ENSURE 120 ML.DENIES PAIN OR DESCOMFORT.
[2019-02-12] MEDS: IV D5/0.45 NACL 1,000 ML IV PRN (02:15)
[2019-02-12] MEDS: IPRATROPIUM NEB FS 0.5 MG/2.5 ML AMPUL.NEB NEB SCH ×6 (03:39→23:51)
[2019-02-12] MEDS: ALBUTEROL FS 2.5 MG/0.5 ML VIAL.NEB NEB SCH ×6 (03:39→23:51)
[2019-02-12 04:40] LABS: BASOPHILS # (AUTO) 0.1 /CMM (0.0-0.2); BASOPHILS % (AUTO) 1.2 % (0.0-2.0); EOSINOPHILS % (AUTO) 5.1 % (0.0-6.0); HEMATOCRIT 30 % (39-51); HEMOGLOBIN 9.8 g/dL (13.5-17.5); LYMPHOCYTES # (AUTO) 0.9 /CMM (0.8-4.8); LYMPHOCYTES % (AUTO) 9.9 % (20.0-44.0); MEAN CORPUSCULAR HGB CONC 33 g/dl (31.0-36.0); MEAN CORPUSCULAR VOLUME 92 fL (80-96); MONOCYTES # (AUTO) 0.7 /CMM (0.1-1.30); MONOCYTES % (AUTO) 7.5 % (2.0-12.0); NEUTROPHILS # (AUTO) 7.3 /CMM (1.8-8.9); NEUTROPHILS % (AUTO) 76.3 % (43.0-81.0); PLATELET COUNT (AUTO) 244 /CMM (150-450); RED BLOOD CELL COUNT(AUTO) 3.26 MIL/uL (4.5-6.0); WHITE BLOOD COUNT (AUTO) 9.5 K/uL (4.3-11.0)
[2019-02-12 05:54] LABS: CALCIUM, SERUM 8.3 mg/dL (8.5-10.1); CREATININE 3.3 mg/dL (0.6-1.3); MAGNESIUM 1.9 mg/dL (1.8-2.4); PHOSPHORUS 3.4 mg/dL (2.5-4.9)
--- NOTE | 2019-02-12 05:59 | NUR ---
ICU NOTES CONTINUES TO TOLERATE N/C AT 3LPM W/ SAT OF 99-100%.VS STABLE.FLEXI SEAL CHANGED,DRAINE 200 ML LIQUID STOOL.BAG CHANGED.
--- NOTE | 2019-02-12 07:14 | NUR ---
ICU NOTES REPORT AND CARE OF PT. GIVEN TO ALEX JARAMILLO.
[2019-02-12] MEDS: VIT B CMPLX 3/FA/VIT C/BIOTIN 1 TAB TABLET PO SCH (10:30)
[2019-02-12] MEDS: PROSOURCE / PROSTAT (PYXIS) 30 ML UDC GT SCH ×3 (10:31→17:00)
[2019-02-12] MEDS: GLUCERNA SHAKE 237 ML CAN PO SCH ×3 (10:32→17:00)
[2019-02-12] MEDS: DAKINS QUARTER STRENGTH (0.125%) 480 ML BOTTLE TOP SCH (12:09)
[2019-02-12] MEDS: HYDROGEL DRESSING 90 GM TUBE TP SCH (12:10)
--- NOTE | 2019-02-12 15:13 | NUR ---
RN NOTES 0730-RECEIVED PATIENT FROM RN. PATIENT OPENS EYES TO VOICE, FOLLOW SIMPLE COMMANDS. ON 3LPM/NC, SATURATION UP TO 100%. 0900-PATIENT ON DIALYSIS. PATIENT APPEARS COMFORTABLE. BP MONITORED. 1030-PATIENT FED SAFELY, ASPIRATION PRECAUTIONS OBSERVED. NO CHOCKING NOTED WHILE FEEDING HIM. 1230-AFEBRILE, FED SAFELY, ASPIRATION PRECAUTIONS OBSERVED. 2525-[id number] BY SPEECH THERAPIST, PATIENT AWAKE, ALERT. BED BATH , SKIN CARE, WOUND CARE DONE.PATIENT SAFETY MAINTAINED
--- NOTE | 2019-02-12 19:00 | NUR ---
BIOFUELS ENGINEERING MANAGER NOTES RECEIVED PATIENT FROM ICU NURSE ALEX. PATIENT IS A/OX1 ON 2 L NASAL CANNULA . SINUS RHYTHM. BRADEN IV ON 30ML/H NORMAL SALINE. BED AT THE LOWEST POSITION LOCKED. CALL LIGHT WITHIN REACH. NO SOB AND DISCOMFORT NOTED AT THIS TIME . ENDORSED TO SRIDEVI RELATIONS MANAGER NURSE FOR CATRACHITA.
--- NOTE | 2019-02-12 20:00 | NUR ---
TD RN NOTES RECEIVED PT FROM BED. A/O X 2. ON NASAL CANNULA 3LPM NO RESPIRATORY DISTRESS NOTED. ON TELE MONITOR SR WITH 1ST DEGREE BLOCK. ON LLANES CATH DRAINING YELLOW URINE, ON FLEXISEAL DRAINING LIQUID STOOL. ON BILATERAL WRIST SOFT RESTRAINTS. HEAD OF BED ELEVATED. SIDE RAILS UP. CALL LIGHT WITHIN REACH. BED ALARM ON. BED IN LOW AND LOCKED POSITION.
[2019-02-13] VITALS: BP 126/87
[2019-02-13] MEDS: IPRATROPIUM NEB FS 0.5 MG/2.5 ML AMPUL.NEB NEB SCH ×6 (03:32→23:50)
[2019-02-13] MEDS: ALBUTEROL FS 2.5 MG/0.5 ML VIAL.NEB NEB SCH ×6 (03:32→23:50)
[2019-02-13 04:00] VITALS: BP 125/90
[2019-02-13 07:15] LABS: BASOPHILS # (AUTO) 0.1 /CMM (0.0-0.2); BASOPHILS % (AUTO) 0.9 % (0.0-2.0); EOSINOPHILS % (AUTO) 5.4 % (0.0-6.0); HEMATOCRIT 31 % (39-51); LYMPHOCYTES # (AUTO) 1.1 /CMM (0.8-4.8); LYMPHOCYTES % (AUTO) 12.1 % (20.0-44.0); MEAN CORPUSCULAR HGB CONC 33 g/dl (31.0-36.0); MEAN CORPUSCULAR VOLUME 92 fL (80-96); MONOCYTES # (AUTO) 0.9 /CMM (0.1-1.30); MONOCYTES % (AUTO) 9.6 % (2.0-12.0); NEUTROPHILS # (AUTO) 6.6 /CMM (1.8-8.9); PLATELET COUNT (AUTO) 223 /CMM (150-450); RED BLOOD CELL COUNT(AUTO) 3.32 MIL/uL (4.5-6.0); WHITE BLOOD COUNT (AUTO) 9.1 K/uL (4.3-11.0)
[2019-02-13 07:38] LABS: CALCIUM, SERUM 8.5 mg/dL (8.5-10.1); CREATININE 3.1 mg/dL (0.6-1.3); PHOSPHORUS 3.5 mg/dL (2.5-4.9)
[2019-02-13 08:00] VITALS: BP_SYST 113; BP_SYST 116; BP_DIAS 76; BP_DIAS 85
[2019-02-13] MEDS: GLUCERNA SHAKE 237 ML CAN PO SCH ×3 (08:00→16:44)
--- NOTE | 2019-02-13 08:00 | NUR ---
PAGE/RN AM SHIFT INITIAL NOTES RECEIVED PT AWAKE IN BED, PT A/O X 2-3, NO ACUTE RESPIRATORY DISTRESS OR CHANGE OF CONDITION NOTED. PT DENIES ANY SYMPTOMS. ON 2L O2 VIA N/C SATURATING @ 91%, RESPIRATIONS EVEN & UNLABORED, LUNG SOUNDS DIMINISHED. ON TELE WITH SINUS RHYTHM WITH BBB AND FIRST DEGREE AV BLOCK. WITH ON GOING IV INFUSION OF D51/2NS @ 30CC/HR, MIDLINE PATENT WITH NO S/S OF INFECTION. LLANES CATHETER INTACT WITH YELLOW URINE OUTPUT. RECTAL TUBE INTACT WITH NOTED MINIMUM OUTPUT OF BROWN LIQUID FECAL OUTPUT. PT IS COMFORTABLE, SCHEDULED AM MEDS TO BE GIVEN. CL WITHIN REACHED AND SAFETY MAINTAINED. ON GOING MONITORING. Addendum: 02/13/19 at 1008 by MARCELLA CISNEROS RN ADDENDUM: PT RECEIVED WITH BILATERAL SOFT WRIST RESTRAINTS, RELEASED TO CHECK FOR CIRCULATION AND COMFORT THEN PLACED BACK.
[2019-02-13] MEDS: PROSOURCE / PROSTAT (PYXIS) 30 ML UDC GT SCH ×3 (08:51→16:44)
[2019-02-13] MEDS: VIT B CMPLX 3/FA/VIT C/BIOTIN 1 TAB TABLET PO SCH (08:54)
[2019-02-13] MEDS: HYDROGEL DRESSING 90 GM TUBE TP SCH (08:54)
[2019-02-13] MEDS: DAKINS QUARTER STRENGTH (0.125%) 480 ML BOTTLE TOP SCH (08:55)
[2019-02-13 12:00] VITALS: BP 124/83
[2019-02-13] MEDS: IV D5/0.45 NACL 1,000 ML IV PRN (12:54)
[2019-02-13 16:00] VITALS: BP 125/82
--- NOTE | 2019-02-13 17:00 | NUR ---
TELE1/RN AFTERNOON ROUNDS PM CARE PROVIDED. NO CHANGE OF CONDITION. MONITORING CONTINUED.
--- NOTE | 2019-02-13 19:15 | NUR ---
TELE1/RN AM SHIFT END NOTES ALL NEEDS MET. NO ACUTE CHANGE OF CONDITION NOTED DURING THE SHIFT. PT ENDORSED TO PM NURSE TO CONTINUE CARE. CL WITHIN REACHED AND SAFETY MAINTAINED.
[2019-02-13 20:00] VITALS: BP 125/82
[2019-02-14] VITALS: BP 144/83
[2019-02-14] MEDS: IPRATROPIUM NEB FS 0.5 MG/2.5 ML AMPUL.NEB NEB SCH ×2 (03:39→06:46)
[2019-02-14] MEDS: ALBUTEROL FS 2.5 MG/0.5 ML VIAL.NEB NEB SCH ×2 (03:39→06:46)
[2019-02-14 04:00] VITALS: BP 128/70
[2019-02-14] MEDS: ONDANSETRON HCL/PF 4 MG/2 ML VIAL IVP PRN ×2 (04:10→11:28)
--- NOTE | 2019-02-14 07:00 | NUR ---
RN OPENING NOTES RECEIVED REPORT FROM GAMBLING BOX PERSON RN. PT NOT ACTIVELY COUGHING REPORTED BY GAMBLING BOX PERSON RN . PT STATES HE IS OKAY BUT WITH DELAY. PT APPEARS TO BE CONFUSED. FLUIDS RUNNING AND FLEXISEAL CURRENTLY DRAINING TO GRAVITY. WILL CONTINUE TO MONITOR.
[2019-02-14 07:01] LABS: BASOPHILS # (AUTO) 0.1 /CMM (0.0-0.2); BASOPHILS % (AUTO) 0.8 % (0.0-2.0); HEMATOCRIT 31 % (39-51); LYMPHOCYTES % (AUTO) 12.2 % (20.0-44.0); MEAN CORPUSCULAR HGB CONC 33 g/dl (31.0-36.0); MEAN CORPUSCULAR VOLUME 91 fL (80-96); MONOCYTES # (AUTO) 0.5 /CMM (0.1-1.30); MONOCYTES % (AUTO) 5.5 % (2.0-12.0); NEUTROPHILS # (AUTO) 6.3 /CMM (1.8-8.9); NEUTROPHILS % (AUTO) 76.5 % (43.0-81.0); PLATELET COUNT (AUTO) 262 /CMM (150-450); RED BLOOD CELL COUNT(AUTO) 3.36 MIL/uL (4.5-6.0); WHITE BLOOD COUNT (AUTO) 8.3 K/uL (4.3-11.0)
--- NOTE | 2019-02-14 07:01 | NUR ---
RN NOTES RECEIVED PATIENT AWAKE IN BED WITH NO RESPIRATORY DISTRESS NOTED. BREATHING EVEN AND UNLABORED. NOTED WITH FACIAL GRIMMACE, ASKED IF IN PAIN. PATIENT SAID NO. NOTED PATIENT TO BE ALERT BUT WITH CONFUSION, TAKES TIME TO PROCESS THINKING WITH DELAYED SPEECH. KEPT CLEAN AND DRY. AT ABOUT 0400, PATIENT STARTED TO COUGH NOTED TO BE PRODUCTIVE BUT UNABLE TO SPIT OUT. REPOSITION FOR COMFORT. HEAD OF BED ELEVATED. VITAL SIGNS CHECKED, WNL. CALLED RT AND BREATHING TREATMENT WAS ADMINISTERED. CLOSE MONITORING DONE. PAIN MEDICATION GIVEN, NORCO 5/324 WITH RELIEF. SOON PATIENT WENT TO SLEEP, NO FACIAL GRIMMACE NOTED. AT ABOUT 0630, PATIENT STARTED TO COUGH AGAIN. REPOSITION FOR COMFORT, HEAD OF BED ELEVATED. BREATHING TREATMENT ADMINISTERED BY RT AND VITAL SIGNS WITHIN NORMAL LEVEL. STILL CLOSELY BEING MONITORED. WILL ENDORSE TO NEXT SHIFT FOR CONTINUITY OF CARE.
[2019-02-14 07:32] LABS: CALCIUM, SERUM 8.6 mg/dL (8.5-10.1); CREATININE 3.2 mg/dL (0.6-1.3); PHOSPHORUS 3.9 mg/dL (2.5-4.9); POTASSIUM 4.2 mmol/L (3.5-5.1)
[2019-02-14 08:00] VITALS: BP 141/84
[2019-02-14] MEDS: GLUCERNA SHAKE 237 ML CAN PO SCH (08:22)
[2019-02-14] MEDS: HYDROGEL DRESSING 90 GM TUBE TP SCH (08:23)
[2019-02-14] MEDS: PROSOURCE / PROSTAT (PYXIS) 30 ML UDC GT SCH (08:23)
[2019-02-14] MEDS: DAKINS QUARTER STRENGTH (0.125%) 480 ML BOTTLE TOP SCH (08:24)
[2019-02-14] MEDS: VIT B CMPLX 3/FA/VIT C/BIOTIN 1 TAB TABLET PO SCH (08:28)
--- NOTE | 2019-02-14 10:38 | NUR ---
PT FOUND VOMITING PROFUSELY DURING DIALYSIS. PT WAS SUCTIONED. ANOTHER RN GAVE ZOFRAN WHEN PT BECAME UNRESPONSIVE. CAROTID WAS PALPABLE. CODE BLUE ACTIVATED. DIALYSIS STOPPED. SEE RECORDER NOTES FOR CODE BLUE.
--- NOTE | 2019-02-14 11:06 | NUR ---
TIME OF PRONOUNCED AT 1106.
--- NOTE | 2019-02-14 11:33 | NUR ---
ZOFRAN GIVEN AT 1030. SCANNED LATE DUE TO PT ACTIVELY VOMITING.
--- NOTE | 2019-02-14 11:50 | NUR ---
MARIA ALEJANDRA MERCADO RECORDER NOTES PATIENT WAS FOUND UNRESPONSIVE, VOMITING A LARGE AMOUNT OF EMESIS. PRIMARY NURSE STARTED SUCTIONING PATIENT. LAND PLANNER WAS CALLED. AFTER A FEW MINUTES, PATIENT STARTED TO TURN PURPLE. NO PULSE NOTED. MARIA ALEJANDRA MERCADO ACTIVATED. RECHECKED PULSE AGAIN, PATIENT STARTED TO HAVE PALPABLE PULSE. MARIA ALEJANDRA MERCADO TEAM AT BEDSIDE. RECHECKED PULSE AGAIN AND CONNECTED PATIENT TO THE MONITOR. NO PULSE NOTED. MD AT BEDSIDE. STARTED CPR AT 1038. HR 45 AND SPO2 60%. MD INTUBATED PATIENT (SIZE 7.5) AT 1040. RT STARTED TO AMBU BAG. FIRST EPI GIVEN AT 1040. PER MD, WILL GIVE EPI Q4H AND WILL CHECK FOR PULSE Q2H. EPI AT 1044. AT 1048, AFTER ANOTHER EPI. PATIENT'S RHYTHM WAS VFIB. PATIENT WAS SHOCKED AND WAS GIVEN 150 OF AMIO AT 1052. AT 1054, ANOTHER EPI WAS GIVEN. SECOND 300 AMIO WAS GIVEN AT 1056. AND AT 1058 EPI. AND LAST EPI GIVEN AT 1102. CONTINUOUSLY CHECKING FOR PULSE Q2H. BICARB AND CALCIUM CHLORIDE WAS GIVEN AT 1044. MAGNESIUM ALSO GIVEN AT 1057. BLOOD SUGAR WAS ALSO CHECKED, 107. LAST SHOCK GIVEN AT 1100. TIME OF AT 1106. FAMILY WAS INFORMED. PER MD'S ASSESSMENT: PUPILS ARE FIXED. NO CORNEAL REFLEX. NO PULSE. NO SPONTANEOUS MOVEMENTS. ALL PAPERWORK PLACED IN PATIENT'S CHART.
[2019-02-14] MEDS ORDERED: SODIUM BICARBONATE SYR 50 MEQ/50 ML DISP.SYRIN IV ONE (12:22)
[2019-02-14] MEDS ORDERED: CALCIUM CHLORIDE 1,000 MG/10 ML DISP.SYRIN IV ONE (12:22)
[2019-02-14] MEDS ORDERED: EPINEPHRINE (1:10,000) SYRINGE 1 MG/10 ML DISP.SYRIN IVP ONE (12:22)
[2019-02-14] MEDS ORDERED: Magnesium 1 GM/2 ML VIAL IV ONE (12:22)
[2019-02-14] MEDS ORDERED: AMIODARONE 150 MG/3 ML VIAL IV ONE (12:22)
[2019-02-14] MEDS ORDERED: FEE EMEERGENCY 1 MIN EA MC ONE (12:22)
== END 2019-02-14 11:06 | disposition expired | DRG 710 ==
LOC: ICU 01-27 00:30 → TELE-TD 02-12 19:01 → TELE1 02-12 22:58 → TELE-TD 02-12 23:01 → TELE1 02-13 09:55
PROVIDERS: ADMIT Nurse Practitioner Acute Care; ATTEND Student in an Organized Health Care Education/Training Program
PROC: 5A1945Z Respiratory Ventilation, 24-96 Consecutive Hours (ICD-10-PCS; principal; 2019-01-27)
PROC: 0KBN0ZZ Excision of Right Hip Muscle, Open Approach (ICD-10-PCS; 2019-01-28)
PROC: 05H933Z Insertion of Infusion Device into Right Brachial Vein, Percutaneous Approach (ICD-10-PCS; 2019-01-30)
PROC: 5A1945Z Respiratory Ventilation, 24-96 Consecutive Hours (ICD-10-PCS; 2019-01-30)
PROC: 009U3ZX Drainage of Spinal Canal, Percutaneous Approach, Diagnostic (ICD-10-PCS; 2019-01-30)
PROC: B01BYZZ Fluoroscopy of Spinal Cord using Other Contrast (ICD-10-PCS; 2019-01-30)
PROC: 0JBL0ZZ Excision of Right Upper Leg Subcutaneous Tissue and Fascia, Open Approach (ICD-10-PCS; 2019-02-04)
PROC: 0JBM0ZZ Excision of Left Upper Leg Subcutaneous Tissue and Fascia, Open Approach (ICD-10-PCS; 2019-02-04)
PROC: 0KBP0ZZ Excision of Left Hip Muscle, Open Approach (ICD-10-PCS; 2019-02-04)
PROC: 05H633Z Insertion of Infusion Device into Left Subclavian Vein, Percutaneous Approach (ICD-10-PCS; 2019-02-07)
PROC: 0KBS0ZZ Excision of Right Lower Leg Muscle, Open Approach (ICD-10-PCS; 2019-02-07)
PROC: 0JHF3XZ Insertion of Tunneled Vascular Access Device into Left Upper Arm Subcutaneous Tissue and Fascia, Percutaneous Approach (ICD-10-PCS; 2019-02-07)
PROC: B547ZZA Ultrasonography of Left Subclavian Vein, Guidance (ICD-10-PCS; 2019-02-07)
PROC: 0KBP0ZZ Excision of Left Hip Muscle, Open Approach (ICD-10-PCS; 2019-02-10)
PROC: 0JB90ZZ Excision of Buttock Subcutaneous Tissue and Fascia, Open Approach (ICD-10-PCS; 2019-02-10)
PROC: 0KBN0ZZ Excision of Right Hip Muscle, Open Approach (ICD-10-PCS; 2019-02-10)
DX: A41.9 Sepsis, unspecified organism (principal); J96.01 Acute respiratory failure with hypoxia; I21.4 Non-ST elevation (NSTEMI) myocardial infarction; I46.9 Cardiac arrest, cause unspecified; J69.0 Pneumonitis due to inhalation of food and vomit; G92 Toxic encephalopathy; N17.0 Acute kidney failure with tubular necrosis; R18.8 Other ascites; I47.2 Ventricular tachycardia; N18.6 End stage renal disease; Z99.11 Dependence on respirator [ventilator] status; I13.2 Hypertensive heart and chronic kidney disease with heart failure and with stage 5 chronic kidney disease, or end stage renal disease; E11.22 Type 2 diabetes mellitus with diabetic chronic kidney disease; D68.9 Coagulation defect, unspecified; L89.313 Pressure ulcer of right buttock, stage 3; L89.323 Pressure ulcer of left buttock, stage 3; D69.6 Thrombocytopenia, unspecified; E11.40 Type 2 diabetes mellitus with diabetic neuropathy, unspecified; B37.49 Other urogenital candidiasis; B19.10 Unspecified viral hepatitis B without hepatic coma; D63.1 Anemia in chronic kidney disease; E11.51 Type 2 diabetes mellitus with diabetic peripheral angiopathy without gangrene; E11.621 Type 2 diabetes mellitus with foot ulcer; E11.622 Type 2 diabetes mellitus with other skin ulcer; E78.5 Hyperlipidemia, unspecified; I25.10 Atherosclerotic heart disease of native coronary artery without angina pectoris; E87.6 Hypokalemia; I42.9 Cardiomyopathy, unspecified; I44.7 Left bundle-branch block, unspecified; I44.0 Atrioventricular block, first degree; I48.91 Unspecified atrial fibrillation; I50.23 Acute on chronic systolic (congestive) heart failure; I87.8 Other specified disorders of veins; J44.9 Chronic obstructive pulmonary disease, unspecified; J98.11 Atelectasis; K74.60 Unspecified cirrhosis of liver; L03.115 Cellulitis of right lower limb; L97.419 Non-pressure chronic ulcer of right heel and midfoot with unspecified severity; Z66 Do not resuscitate; Y95 Nosocomial condition; Z99.2 Dependence on renal dialysis; Z95.810 Presence of automatic (implantable) cardiac defibrillator; Z79.4 Long term (current) use of insulin; Z74.01 Bed confinement status; Z53.8 Procedure and treatment not carried out for other reasons; E83.41 Hypermagnesemia
CPT/HCPCS: 31720; 36415; 36600; 62270; 71045-TC; 80048-TC; 80053-TC; 80150; 80170-TC; 80202-TC; 81000-TC; 82803-TC; 82962-TC; 83735-TC; 84100-TC; 85025-TC; 85610-TC; 85652-TC; 85730-TC; 86592; 86704; 86705; 86706; 86788; 86789; 86803; 87040-TC; 87070-TC; 87081-TC; 87086-TC; 87186-TC; 87340; 87899; 89051-TC; 90935-TC; 92526; 92611-TC; 92950-TC; 94002-TC; 94003-TC; 94640-TC; 94760-TC; 94799-TC; 97112-TC; 97530-TC; 99082-TC; A4216; A6248; A6253; A6403; G0378; J0171; J0282; J0461; J1450; J1580; J1644; J2270; J2405; J2543; J3370; J3475; J3480; J3490; J7030; J7050; J7060; P9047